=== PATIENT | female | born 1970 | race Caucasian/White ===

== ENCOUNTER 2017-11-27 20:47 | Emergency (ER) | payer BC ==
[2017-11-27] MEDS ORDERED: Ondansetron 4 MG/2 ML SDV IVPUSH ONE ×2 (21:19→23:49)
[2017-11-27] MEDS ORDERED: HYDROmorphone 0.5 MG/0.5 ML SYRINGE IVPUSH ONE ×2 (21:20→22:59)
[2017-11-27] MEDS ORDERED: Sodium Chloride 0.9% 1,000 ML IV SCH (21:30)
--- NOTE | 2017-11-27 21:32 | EDM.PDOC ---
ED HPI GENERAL MEDICAL PROBLEM - General Chief Complaint: Abdominal Pain Stated Complaint: STOMACH PAIN AND NAUSEA Time Seen by Provider: 11/27/17 20:49 Source of Information: Reports: Patient, Family History Limitations: Reports: No Limitations - History of Present Illness INITIAL COMMENTS - FREE TEXT/NARRATIVE: This is a 47-year-old female. He was in [place] for lunch had Khmer food and very shortly after eating the Khmer food she developed some abdominal discomfort that seemed to start down low and then went up into her upper abdomen. When she drove back home she took a Zantac didn't help and also took some Pepto-Bismol but that didn't help either. She describes nausea with this and kind of a crampy pain in the upper abdomen and sometimes worse on the left and sometimes it goes up into her armpits. The patient states she has not vomited. Because of the continued discomfort she comes to the ER for evaluation. She has no history of pancreatic problems no history of aortic problems no history of gallbladder problems. 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 Denies: Constipation, Diarrhea, Vomiting : Reports: No Symptoms Musculoskeletal: Reports: No Symptoms Skin: Reports: No Symptoms Neurological: Reports: No Symptoms Psychiatric: Reports: No Symptoms Hematologic/Lymphatic: Reports: No Symptoms ED EXAM, GI/ABD - Physical Exam Exam: See Below Exam Limited By: No Limitations General Appearance: Alert, WD/WN, No Apparent Distress Eyes: Bilateral: Normal Appearance Ears: Normal External Exam Nose: Normal Inspection Throat/Mouth: Normal Inspection, Normal Lips, Normal Voice, No Airway Compromise Head: Normocephalic Neck: Supple Respiratory/Chest: No Respiratory Distress, Lungs Clear, Normal Breath Sounds Cardiovascular: Regular Rate, Rhythm, No Murmur GI/Abdominal Exam: Soft, Other (The patient has some mild tenderness all across the upper abdomen area possibly over the right upper quadrant little more but negative Campbell sign, no pulsatile masses are noted but she is a large individual, no bruits are noted, the lower abdomen is nontender on palpation. Along the flank she doesn't seem to have tenderness on palpation but she does state that the pain will go up the left side and right-sided times into the armpit and also a little bit up in the Center part of her chest and epigastric area) Back Exam: Full Range of Motion Extremities: Normal Inspection, Normal Range of Motion Neurological: Alert, Oriented Psychiatric: Normal Affect, Normal Mood Skin Exam: Warm, Dry Course - Vital Signs Last Recorded V/S: Last Vital Signs Temp 97.8 F 11/27/17 21:02 Pulse 78 11/27/17 21:02 Resp 18 11/27/17 21:02 BP 150/84 H 11/27/17 21:02 Pulse Ox 96 11/27/17 21:02 - Orders/Labs/Meds Orders: Active Orders 24 hr Category Date Time Status Abdomen Comp [US] Stat Exams 11/27/17 21:18 Taken Sodium Chloride 0.9% [Normal Saline] 1,000 ml Med 11/27/17 21:30 Active IV ASDIRECTED Medication Orders Sodium Chloride (Normal Saline) 1,000 mls @ 500 mls/hr IV ASDIRECTED KAMRAN Last Admin: 11/27/17 21:36 Dose: 500 mls/hr Labs: Laboratory Tests 11/27/17 11/27/17 Range/Units 21:30 21:30 WBC 8.42 (3.98-10.04) K/mm3 RBC 4.71 (3.98-5.22) M/mm3 Hgb 13.7 (11.2-15.7) gm/L Hct 41.6 (34.1-44.9) % MCV 88.3 (79.4-94.8) fl MCH 29.1 (25.6-32.2) pg MCHC 32.9 (32.2-35.5) g/dl RDW Std Deviation 43.6 (36.4-46.3) fL Plt Count 267 (182-369) K/mm3 MPV 9.9 (9.4-12.3) fl Neut % (Auto) 60.4 (34.0-71.1) % Lymph % (Auto) 28.4 (19.3-51.7) % [place] % (Auto) 9.0 (4.7-12.5) % Eos % (Auto) 1.9 (0.7-5.8) Baso % (Auto) 0.2 (0.1-1.2) % Neut # (Auto) 5.08 (1.56-6.13) K/mm3 Lymph # (Auto) 2.39 (1.18-3.74) K/mm3 [place] # (Auto) 0.76 H (0.24-0.36) K/mm3 Eos # (Auto) 0.16 (0.04-0.36) K/mm3 Baso # (Auto) 0.02 (0.01-0.08) K/mm3 Sodium 140 (136-145) mEq/L Potassium 4.0 (3.5-5.1) mEq/L Chloride 104 (98-107) mEq/L Carbon Dioxide 27 (21-32) mEq/L Anion Gap 13.0 (5-15) BUN 20 H (7-18) mg/dL Creatinine 1.0 (0.55-1.02) mg/dL Est Cr Clr Drug Dosing 71.90 mL/min Estimated GFR (MDRD) 59 (>60) mL/min BUN/Creatinine Ratio 20.0 H (14-18) Glucose 120 H (74-106) mg/dL Calcium 8.7 (8.5-10.1) mg/dL Total Bilirubin 0.3 (0.2-1.0) mg/dL AST 14 L (15-37) U/L ALT 23 (14-59) U/L Alkaline Phosphatase 43 L (46-116) U/L Total Protein 6.9 (6.4-8.2) g/dl Albumin 3.7 (3.4-5.0) g/dl Globulin 3.2 gm/dL Albumin/Globulin Ratio 1.2 (1-2) Lipase 253 (73-393) U/L Meds: Medications Generic Name Dose Route Start Last Admin Trade Name Kristyn PRN Reason Stop Dose Admin Sodium Chloride 1,000 mls @ 500 mls/hr 11/27/17 21:30 11/27/17 21:36 Normal Saline IV 500 mls/hr ASDIRECTED KAMRAN Administration Discontinued Medications Generic Name Dose Route Start Last Admin Trade Name Huberq PRN Reason Stop Dose Admin Hydromorphone HCl 0.5 mg 11/27/17 21:20 11/27/17 21:37 Dilaudid IVPUSH 11/27/17 21:21 0.5 mg ONETIME ONE Administration Hydromorphone HCl 0.5 mg 11/27/17 22:59 Dilaudid IVPUSH 11/27/17 23:00 ONETIME ONE Ondansetron HCl 4 mg 11/27/17 21:19 11/27/17 21:37 Zofran IVPUSH 11/27/17 21:20 4 mg ONETIME ONE Administration - Radiology Interpretation Free Text/Narrative:: Ultrasound of the abdomen reveals multiple large gallstones with a positive Campbell's sign, the aorta was unremarkable and no aneurysms no kidney stones noted the pancreas was unremarkable and the liver was unremarkable there were no stones in the common bile duct noted. - Re-Assessments/Exams Free Text/Narrative Re-Assessment/Exam: 11/27/17 23:00 I spoke to the patient regarding the ultrasound results and the large gallstones and I explained to her that the greasy food she probably ate at lunch was what made flareup and she needs to be careful about eating fried greasy or oily foods. She does need to follow up with her PCP regarding the gallstones and if things markedly worsen she needs to return to the ER. 11/27/17 23:43 The patient is feeling better and wants to go home. I encouraged her to follow up with her PCP this week for reevaluation and possible referral to a surgeon. Departure - Departure Time of Disposition: 23:43 Disposition: Home, Self-Care 01 Condition: Fair Clinical Impression: Cholelithiasis without cholecystitis, Right upper quadrant abdominal pain, Nausea - Discharge Information Prescriptions: Acetaminophen/oxyCODONE [Percocet 325-5 MG] 1 each PO Q6H PRN #10 tab PRN Reason: Abdominal Pain Ondansetron HCl [Zofran] 4 mg PO Q8H PRN #12 tablet PRN Reason: Nausea Referrals: PCP,None [Primary Care Provider] - Forms: ED Department Discharge Additional Instructions: Stay away from all fried greasy or oily foods because it will make your gallbladder cry, use the pain medicine and medicine for nausea as needed, if the pain really worsens and the medicines are not working return to the ER, follow up with your provider this week for reevaluation and possible referral to a surgeon for your gallbladder removal, return to the ER if it worsens - My Orders Last 24 Hours: My Active Orders 11/27/17 21:18 Abdomen Comp [US] Stat 11/27/17 21:30 Sodium Chloride 0.9% [Normal Saline] 1,000 ml IV ASDIRECTED - Assessment/Plan Last 24 Hours: My Active Orders 11/27/17 21:18 Abdomen Comp [US] Stat 11/27/17 21:30 Sodium Chloride 0.9% [Normal Saline] 1,000 ml IV ASDIRECTED
[2017-11-27] MEDS ORDERED: Ondansetron 4 MG Tab.DIS PO ONE (23:49)
--- NOTE | 2017-11-29 08:30 | US ---
Abdominal ultrasound: Multiple real-time images of the abdomen were obtained. Comparison: No previous abdominal imaging. Liver shows no focal abnormality. Aorta shows no aneurysmal dilatation. Pancreas is incompletely seen. Visualized portions of the pancreas are within normal limits. Multiple large gallstones seen within the gallbladder. No gallbladder wall thickening is seen. Common bile duct measures at the upper limits of normal at 7 mm. Kidneys show no hydronephrosis or mass. Right kidney has a length of 12.1 cm and left kidney has a length of 12.6 cm. Inferior vena cava is patent. Portal vein is also patent. Spleen appears within normal limits. Impression: 1. Multiple large gallstones within the gallbladder. No gallbladder wall thickening. Common bile duct measures at the upper limits of normal at 7 mm. 2. Other portions of the abdominal ultrasound study appear unremarkable. Diagnostic code #3 I agree with preliminary report from [facility], finalized at 11/27/17, 11:27 PM Central Time
== END 2017-11-27 23:58 | disposition home or self-care (01) ==
LOC: JD.ED 20:47
DX: K80.20 Calculus of gallbladder without cholecystitis without obstruction (principal)
CPT/HCPCS: 36415; 76700; 80053; 83690; 85025; 96361; 96374; 96375; 96376; 99284; A9270; J1170; J2405; J7040

== ENCOUNTER 2017-12-07 07:01 | Day surgery (SDC) | payer BC ==
[~2017-12-07 07:01] MED LIST: Lactated Ringers 1,000 ML IV SCH; Lidocaine 1%/Sod Bicarbonate in NS 8.4% 1 ML Syringe IDERM PRN; Sodium Chloride 0.9% 10 ML Syringe FLUSH PRN
[2017-12-07] MEDS ORDERED: Propofol 200 MG/20 ML SDV ONE (07:13)
[2017-12-07] MEDS ORDERED: Midazolam 1 MG/ML 2 ML SDV ONE (07:14)
[2017-12-07] MEDS ORDERED: fentaNYL 250 MCG/5 ML SDV ONE (07:14)
[2017-12-07] MEDS ORDERED: Bupivacaine 0.5% 30 ML SDV ONE (07:18)
[2017-12-07] MEDS ORDERED: Iopamidol 612 MG/ML 50 ML SDV ONE (07:18)
[2017-12-07] MEDS ORDERED: Sodium Chloride 0.9% 50 ML SDV ONE (07:19)
[2017-12-07] MEDS ORDERED: Lidocaine 1% 4 ML ONE (07:19)
[2017-12-07] MEDS ORDERED: Rocuronium 50 MG/5 ML Vial ONE (07:20)
[2017-12-07] MEDS ORDERED: Dexamethasone 4 MG/ML SDV ONE (07:21)
[2017-12-07] MEDS ORDERED: Ondansetron 4 MG/2 ML SDV ONE (07:21)
--- NOTE | 2017-12-07 07:33 | PCM.PREANE ---
Preanesthetic Assessment - Procedure Proposed Procedure: Lap stan with IOC - Anesthesia/Transfusion/Family Hx Anesthesia History: Prior Anesthesia Without Reaction Family History of Anesthesia Reaction: No Transfusion History: No Prior Transfusion(s) - Review of Systems General: No Symptoms Pulmonary: Other (HANNY with CPAP) Cardiovascular: No Symptoms Gastrointestinal: No Symptoms Neurological: No Symptoms Other: Reports: None - Physical Assessment NPO Status Date: 12/06/17 NPO Status Time: 21:00 Pulse: 69 O2 Sat by Pulse Oximetry: 97 Respiratory Rate: 16 Blood Pressure: 126/70 Temperature: 37.1 C Height: 1.75 m Weight: 141.521 kg ASA Class: 2 Mental Status: Alert & Oriented x3 Airway Class: Mallampati = 2 Dentition: Reports: Normal Dentition Thyro-Mental Finger Breadths: 3 Mouth Opening Finger Breadths: 3 ROM/Head Extension: Full Lungs: Clear to Auscultation, Normal Respiratory Effort Cardiovascular: Regular Rate, Regular Rhythm - Allergies Allergies/Adverse Reactions: Allergies Allergy/AdvReac Type Severity Reaction Status Date / Time No Known Allergies Allergy Verified 11/27/17 21:05 - Blood Blood Available: No Product(s) Available: None - Anesthesia Plan Pre-Op Medication Ordered: None - Acknowledgements Anesthesia Type Planned: General Anesthesia Pt an Appropriate Candidate for the Planned Anesthesia: Yes Alternatives and Risks of Anesthesia Discussed w Pt/Guardian: Yes Pt/Guardian Understands and Agrees with Anesthesia Plan: Yes PreAnesthesia Questionnaire HEENT History: Reports: Impaired 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: - HOME MEDS Home Medications: Home Meds Acetaminophen/oxyCODONE [Percocet 325-5 MG] 1 each PO Q6H PRN #10 tab 11/27/17 [ Rx] Ondansetron HCl [Zofran] 4 mg PO Q8H PRN #12 tablet 11/27/17 [Rx] Ranitidine [Zantac] 75 mg PO BID PRN 11/27/17 [History] - CURRENT (IN HOUSE) MEDS Current Meds: Current Medications Lactated Ringer's (Ringers, Lactated) 1,000 mls @ 125 mls/hr IV ASDIRECTED KAMRAN Stop: 12/07/17 23:00 Lidocaine/Sodium Bicarbonate (Buffered Lidocaine 1% In Ns 8.4%) 0.25 ml IDERM ONETIME PRN PRN Reason: Prior to IV Start Stop: 12/07/17 18:00 Sodium Chloride (Saline Flush) 10 ml FLUSH ASDIRECTED PRN PRN Reason: Keep Vein Open Stop: 12/07/17 18:00 Discontinued Medications Bupivacaine HCl (Marcaine 0.5%) Confirm Administered Dose 30 ml .ROUTE .STK-MED ONE Stop: 12/07/17 07:19 Dexamethasone (Dexamethasone) Confirm Administered Dose 4 mg .ROUTE .STK-MED ONE Stop: 12/07/17 07:22 Fentanyl (Sublimaze) Confirm Administered Dose 250 mcg .ROUTE .STK-MED ONE Stop: 12/07/17 07:15 Lidocaine HCl (Xylocaine-Mpf 1%) Confirm Administered Dose 4 mls @ as directed .ROUTE .STK-MED ONE Stop: 12/07/17 07:20 Iopamidol (Isovue-300 (61%)) Confirm Administered Dose 50 ml .ROUTE .STK-MED ONE Stop: 12/07/17 07:19 Midazolam HCl (Versed 1 Mg/Ml) Confirm Administered Dose 2 mg .ROUTE .STK-MED ONE Stop: 12/07/17 07:15 Ondansetron HCl (Zofran) Confirm Administered Dose 4 mg .ROUTE .STK-MED ONE Stop: 12/07/17 07:22 Propofol (Diprivan 20 Ml) Confirm Administered Dose 200 mg .ROUTE .STK-MED ONE Stop: 12/07/17 07:14 Rocuronium Spring (Zemuron) Confirm Administered Dose 50 mg .ROUTE .STK-MED ONE Stop: 12/07/17 07:21 Sodium Chloride (Normal Saline) Confirm Administered Dose 50 ml .ROUTE .STK-MED ONE Stop: 12/07/17 07:20
[2017-12-07] MEDS ORDERED: ceFAZolin 1 GM Vial ONE (08:19)
[2017-12-07] MEDS ORDERED: HYDROmorphone 0.5 MG/0.5 ML Syringe ONE (09:27)
--- NOTE | 2017-12-07 10:07 | CR ---
Operative cholangiogram: Multiple fluoroscopic spot views were obtained utilizing C-arm device during operative cholangiogram exam. Opacification of the CHD and CBD are seen as well as opacification of a small portion of the intrahepatic ducts. No filling defects are seen to indicate retained stone. Contrast is noted within the duodenum. Impression: 1. No abnormality is identified on operative cholangiogram study. Diagnostic code #1
[2017-12-07] MEDS ORDERED: Ketorolac 30 MG/ML SDV ONE (10:14)
--- NOTE | 2017-12-07 10:35 | PCM.OPNOTE ---
- General Post-Op/Procedure Note Date of Surgery/Procedure: 12/07/17 Operative Procedure(s): lap stan with IOC Pre Op Diagnosis: chlelithiasis hydrops of gall bladder Post-Op Diagnosis: Same Anesthesia Technique: General ET Tube, MAC Primary Surgeon: Dion Johnson EBL in mLs: 10 Complications: None Condition: Good
[2017-12-07] MEDS ORDERED: diphenhydrAMINE 50 MG/ML SDV IVPUSH PRN (10:40)
[2017-12-07] MEDS ORDERED: Ondansetron 4 MG/2 ML SDV IVPUSH PRN (10:40)
[2017-12-07] MEDS ORDERED: Meperidine PF 50 MG/ML Syringe IVPUSH PRN (10:40)
[2017-12-07] MEDS ORDERED: fentaNYL 100 MCG/2 ML SDV IVPUSH PRN (10:40)
--- NOTE | 2017-12-07 10:40 | PCM.POSTAN ---
POST ANESTHESIA ASSESSMENT - MENTAL STATUS Mental Status: Alert, Oriented - VITAL SIGNS Pulse Rate: 77 SaO2: 94 Resp Rate: 12 Blood Pressure: 129/81 Temperature: 37.6 C - RESPIRATORY Respiratory Status: Respiratory Rate WNL, Airway Patent, O2 Saturation Stable, Supplemental Oxygen - CARDIOVASCULAR CV Status: Pulse Rate WNL, Blood Pressure Stable - GASTROINTESTINAL GI Status: No Symptoms - PAIN Pain Score: 0 - POST OP HYDRATION Hydration Status: Adequate & Stable
[2017-12-07] MEDS ORDERED: Acetaminophen/HYDROcodone 325-5 MG Tab PO PRN (12:02)
--- NOTE | 2017-12-08 09:10 | OR ---
DATE OF OPERATION: 12/07/2017 SURGEON: Dion Johnson MD PREOPERATIVE DIAGNOSIS: Cholelithiasis and hydrops of the gallbladder with obstruction of the common duct. POSTOPERATIVE DIAGNOSIS: Cholelithiasis and hydrops of the gallbladder with obstruction of the common duct. OPERATION PERFORMED: Partial cholecystectomy, extraction of stones separately, removed from the abdominal cavity along with remaining portion of the gallbladder with intraoperative cholangiogram. FINDINGS: Acute hydrops of the gallbladder with normal cholangiogram. ESTIMATED BLOOD LOSS: About 10 mL. DESCRIPTION OF PROCEDURE: The patient was taken to the operating room, placed in a supine position, given a general anesthetic and intubated. SCDs were placed. Antibiotics were given. The abdomen was prepped with chlorhexidine prep and draped off in a sterile fashion. Using a long 5-mm trocar, abdominal cavity was entered using an Optiport. 5-mm 0-degree camera was then inserted. Abdominal cavity was scanned showing inflamed gallbladder in the right upper quadrant, which was tense. A 10- mm trocar was placed in the epigastric position. A 5-mm trocar was placed in the midclavicular line, in the anterior axillary line at the rib edge. The gallbladder was then aspirated and grasped with a retractor and retracted in a cephalad position. The patient was replaced in reverse Trendelenburg with leftward tilt, and the Aleksandra's pouch was identified which was obstructed with a stone. Calot's triangle was then dissected out showing the cystic duct Aleksandra pouch junction. A clip was placed on this and a cholangiocatheter was then inserted and cholangiogram was then obtained using contrast material diluted with equal parts of saline and contrast material. This was normal. Two clips were placed on the cystic duct and the cystic duct was cut. Further dissection demonstrated the cystic artery and 2 clips were placed on the cystic artery and it was cut. It was then dissected. The Aleksandra's pouch was then lifted up and dissected close to the liver, but it was quite thickened and scarred in and it was elected to leave the posterior wall of the gallbladder in. The gallbladder was then opened, irrigated, and stones were then carefully removed and a portion of them were placed in an Endobag, removed from the abdominal cavity through the epigastric port. The remaining portion of the stones were placed just at the hepatic duct joining the common duct and the gallbladder was then dissected from its attachments to the liver, leaving the back wall in place. This was placed in an Endobag and then the remaining stones were then carefully picked up and put in that Endobag and removed from the abdominal cavity. The camera was then reinserted and careful search showed no further stones. They were all quite large and the area was irrigated. No bleeding. This completed the intraabdominal portion of the procedure. The pneumoperitoneum ports were removed and the epigastric port was closed with interrupted 0 Vicryl suture and the skin in each port closed with subdermal 4-0 Dexon suture. Steri-Strips and sterile dressing placed along with injection with 0.5% Marcaine. The patient tolerated the procedure and sent to recovery room in a stable condition. ANESTHESIA: [id number] /[id number]
== END 2017-12-07 13:50 | disposition home or self-care (01) ==
LOC: JD.SDS 07:01
PROVIDERS: ATTEND Surgery
DX: K80.11 Calculus of gallbladder with chronic cholecystitis with obstruction (principal); K82.1 Hydrops of gallbladder; G47.33 Obstructive sleep apnea (adult) (pediatric); Z99.89 Dependence on other enabling machines and devices
CPT/HCPCS: 47563; 74300; A9270; J0690; J1100; J1170; J1885; J2001; J2250; J2405; J3010; J7120; Q9967; 00790; J2704

== ENCOUNTER 2021-04-11 04:33 | Inpatient (IN) | payer BC ==
[2021-04-11] MEDS ORDERED: Sodium Chloride 0.9% 1,000 ML IV ONE (05:03)
[2021-04-11] MEDS ORDERED: Dexamethasone 10 MG/ML SDV IVPUSH STA (05:10)
[2021-04-11] MEDS ORDERED: REMDESIVIR 200 MG in Sodium Chloride 0.9% 250 ML IV ONE (05:11)
--- NOTE | 2021-04-11 05:26 | EDM.PDOC ---
ED HPI GENERAL MEDICAL PROBLEM - General Chief Complaint: Respiratory Problem Stated Complaint: [facility] Time Seen by Provider: 04/11/21 04:44 Source of Information: Reports: Patient History Limitations: Reports: No Limitations - History of Present Illness INITIAL COMMENTS - FREE TEXT/NARRATIVE: Mrs. Lee is a pleasant 50-year-old woman who states that she received a J&J COVID vaccination on 03/21/2021. Her then tested positive for the SARS-CoV-2 virus on 04/02/2021, and when she developed a headache on 04/04/2021, she decided to get tested, which also returned positive. He states that she has been feeling intermittently dyspneic since Wednesday. She developed a fever on or about 04/05/2021, with a T-max of 101.4 degrees at that time. She then developed a nonproductive cough on 04/08/2021, and diaphoresis either 04/09/2021, or yesterday, , 04/10/2021. She received an infusion of Regen-Cov on Wednesday. She developed watery diarrhea yesterday. She then woke around 03:00 with severe dyspnea and diaphoresis. She was brought to the ED by EMS, who found her to be hypoxemic. They placed high flow O2. Here in the ED, the patient was initially found to be tachycardic at 132 bpm and tachypneic at 34 rpm. She is afebrile, saturating 84% on high flow oxygen, 86 to 88% on a nonrebreather mask. She is calm, but appears to be dyspneic. Her initial BP was normal at 132/68, however, has subsequently dropped as low as 75/39. Prior to Wednesday, the patient denies having a recent fever, chills, sore throat, ear pain, nasal or sinus congestion, cough, dyspnea, chest pain, palpitations, nausea, vomiting, constipation, diarrhea, abdominal pain, urinary symptoms, recent weight gain or weight loss, recent bloody bowel movements or black bowel movements, recent joint aches, headaches, or rashes. The patient's PCP is Radha Felix NP. She received a single J&J COVID vaccination on 03/21/2021. - Related Data Allergies Allergy/AdvReac Type Severity Reaction Status Date / Time No Known Allergies Allergy Verified 04/11/21 04:49 Home Meds: Home Meds Multivitamin [Multivitamins] 1 tab PO DAILY 04/11/21 [History] Past Medical History HEENT History: Reports: Impaired Vision Endocrine/Metabolic History: Reports: Obesity/BMI 30+ - Infectious Disease History Infectious Disease History: Reports: Novel Coronavirus (dx'd 04/04/2021) - Past Surgical History HEENT Surgical History: Reports: Oral Surgery (dental extractions) GI Surgical History: Reports: Cholecystectomy (12/07/2017) Female Surgical History: Reports: Tubal Ligation Social & Family History - Tobacco Use Tobacco Use Status *Q: Never Tobacco User - Caffeine Use Caffeine Use: Reports: None - Alcohol Use Alcohol Use History: Yes Alcohol Use Frequency: Socially - Recreational Drug Use Recreational Drug Use: No - Living Situation & Occupation Living situation: Reports: , with Spouse, with Family (2 kids) Occupation: Employed ([employer]) ED ROS GENERAL - Review of Systems Review Of Systems: Comprehensive ROS is negative, except as noted in HPI. ED EXAM, GENERAL - Physical Exam Exam: See Below Exam Limited By: No Limitations General Appearance: Alert, WD/WN, Mild Distress (appears dyspneic) Eye Exam: Bilateral Eye: EOMI, Normal Inspection Ears: Normal External Exam, Hearing Grossly Normal Nose: Normal Inspection Throat/Mouth: Normal Inspection, Normal Lips, Normal Voice, No Airway Compromise Head: Atraumatic, Normocephalic Neck: Normal Inspection, Full Range of Motion Respiratory/Chest: No Respiratory Distress, Lungs Clear, Normal Breath Sounds, No Accessory Muscle Use. No: Decreased Breath Sounds, Crackles, Rhonchi, Wheezing, Stridor, Prolonged Expiration Cardiovascular: Normal Peripheral Pulses, No Gallop, No JVD, No Murmur, No Rub, Tachycardia (regular) Peripheral Pulses: 2+: Radial (L), Radial (R) GI/Abdominal: Normal Bowel Sounds, Soft, Non-Tender, No Organomegaly, No Distention, No Abnormal Bruit, No Mass Back Exam: Normal Inspection, Full Range of Motion, NT Extremities: Normal Inspection, Normal Range of Motion, No Pedal Edema, Normal Capillary Refill Neurological: Alert, Oriented, Normal Cognition, No Motor/Sensory Deficits Psychiatric: Flat Affect Skin Exam: Warm, Intact, Normal Color, No Rash, Diaphoretic (mild) #1 Interpretation EKG Date: 04/11/21 Time: 04:45 Rhythm: Other (Sinus tachycardia) Rate (Beats/Min): 131 [place]: RAD-Right [place] Deviation (due to LPFB) P-Wave: Present QRS: RBBB ST-T: Normal QT: Prolonged (QTc 491 ms) Comparison: NA - No Prior EKG Course - Vital Signs Last Recorded V/S: Last Vital Signs Temp 36.0 C L 04/11/21 21:20 Pulse 132 H 04/11/21 04:43 Resp 28 H 04/11/21 21:20 BP 105/72 04/11/21 21:20 Pulse Ox 100 04/11/21 22:48 - Orders/Labs/Meds Orders: Active Orders 24 hr Category Date Time Status BIPAP Adult [RT BiPAP/CPAP] [RC] ASDIRECTED Care 04/11/21 06:02 Active Blood Glucose Check, Bedside [] ONETIME Care 04/11/21 15:55 Active BLOOD CULTURE [MREF] Stat Lab 04/11/21 05:30 Received BLOOD CULTURE [MREF] Stat Lab 04/11/21 05:38 Received Heparin Sodium/D5W [Heparin 25,000 Units in D5W 500 ML] Med 04/11/21 08:30 Active 25,000 units in 500 ml IV TITRATE Sodium Chloride 0.9% [Normal Saline] 1,000 ml Med 04/11/21 06:15 Active IV ASDIRECTED Sodium Chloride 0.9% [Normal Saline] 100 ml Med 04/11/21 07:45 Active IV ASDIRECTED Blood Culture x2 Reflex Set [OM.PC] Stat Oth 04/11/21 05:13 Ordered Medication Orders Acetaminophen (Acetaminophen 325 Mg Tab) 650 mg PO Q4H PRN PRN Reason: Pain (Mild 1-3)/fever Albuterol/Ipratropium (Albuterol/Ipratropium 3.0-0.5 Mg/3 Ml Neb Soln) 3 ml NEB Q4H PRN PRN Reason: Shortness Of Breath/wheezing Dexamethasone (Dexamethasone 4 Mg Tab) 6 mg PO DAILY KAMRAN Stop: 04/21/21 09:01 Sodium Chloride (Normal Saline) 1,000 mls @ 150 mls/hr IV ASDIRECTED KAMRAN Last Admin: 04/11/21 06:19 Dose: 150 mls/hr Documented by: RODERICK Sodium Chloride (Normal Saline) 100 mls @ 60 mls/hr IV ASDIRECTED KAMRAN Last Admin: 04/11/21 08:07 Dose: 60 mls/hr Documented by: TAMMI Heparin Sodium/Dextrose (Heparin 25,000 Units In D5w 500 Ml) 25,000 units in 500 mls @ 53.887 mls/hr IV TITRATE KAMRAN; Protocol Last Titration: 04/11/21 23:00 Dose: 0 units/kg/hr, 0 mls/hr Documented by: COMPA Cosigned by: LAMBERTO Admin: 04/11/21 20:57 Dose: 18 units/kg/hr, 53.887 mls/hr Documented by: MOISE Cosigned by: VANDANA Titration: 04/11/21 18:16 Dose: 18 units/kg/hr, 53.887 mls/hr Documented by: MOISE Cosigned by: VANDANA Admin: 04/11/21 08:59 Dose: 18 units/kg/hr, 53.887 mls/hr Documented by: ANGELIC Cosigned by: MOISE Remdesivir 100 mg/ Sodium (Chloride) 100 mls @ 100 mls/hr IV Q24H KAMRAN Stop: 04/15/21 06:59 Heparin Sodium/Dextrose (Heparin 25,000 Units In D5w 500 Ml) 25,000 units in 500 mls @ 53.887 mls/hr IV TITRATE KAMRAN; Protocol Ondansetron HCl (Ondansetron 4 Mg/2 Ml Sdv) 4 mg IVPUSH Q4H PRN PRN Reason: Nausea/Vomiting Labs: Laboratory Tests 04/11/21 04/11/21 04/11/21 Range/Units 04:48 05:30 05:30 WBC 18.14 H (3.98-10.04) K/mm3 RBC 4.68 (3.98-5.22) M/mm3 Hgb 13.4 (11.2-15.7) gm/dl Hct 41.7 (34.1-44.9) % MCV 89.1 (79.4-94.8) fl MCH 28.6 (25.6-32.2) pg MCHC 32.1 L (32.2-35.5) g/dl RDW Std Deviation 45.6 (36.4-46.3) fL Plt Count 209 (182-369) K/mm3 MPV 9.4 (9.4-12.3) fl Neut % (Auto) (34.0-71.1) % Lymph % (Auto) (19.3-51.7) % [place] % (Auto) (4.7-12.5) % Eos % (Auto) (0.7-5.8) Baso % (Auto) (0.1-1.2) % Neut # (Auto) (1.56-6.13) K/mm3 Lymph # (Auto) (1.18-3.74) K/mm3 [place] # (Auto) (0.24-0.36) K/mm3 Eos # (Auto) (0.04-0.36) K/mm3 Baso # (Auto) (0.01-0.08) K/mm3 Neutrophils % (Manual) 82 H (40-60) % Band Neutrophils % 1 (0-10) % Lymphocytes % (Manual) 13 L (20-40) % Atypical Lymphs % 0 % Monocytes % (Manual) 4 (2-10) % Eosinophils % (Manual) 0 L (0.7-5.8) % Basophils % (Manual) 0 L (0.1-1.2) Manual Slide Review Platelet Estimate Adequate RBC Morph Comment Normal PT (9.7-12.0) SECONDS INR APTT (21.7-31.4) SECONDS D-Dimer, Quantitative (0.19-0.50) mg/L Puncture Site Rt radial ABG pH 7.33 L (7.35-7.45) ABG pCO2 38.4 (35.0-45.0) mmHg ABG pO2 60.0 L (80.0-100.0) mmHg ABG HCO3 19.8 L (22.0-26.0) meq/L ABG O2 Saturation 88.6 L (96.0-97.0) % ABG Base Excess -5.2 L (-2-2.0) A-a Gradient 462 mmHg O2 Delivery Device Nonrebreather Oxygen Flow Rate 15.0 FiO2 60.00 (21.00-100.00) % Sodium 138 (136-145) mEq/L Potassium 5.1 (3.5-5.1) mEq/L Chloride 102 (98-107) mEq/L Carbon Dioxide 26 (21-32) mEq/L Anion Gap 15.1 H (5-15) BUN 13 (7-18) mg/dL Creatinine 1.0 (0.55-1.02) mg/dL Est Cr Clr Drug Dosing 67.14 mL/min Estimated GFR (MDRD) 58 (>60) mL/min BUN/Creatinine Ratio 13.0 L (14-18) Glucose 245 H (70-99) mg/dL POC Glucose (70-99) mg/dL Lactic Acid (0.4-2.0) mmol/L Calcium 8.3 L (8.5-10.1) mg/dL Magnesium 2.0 (1.8-2.4) mg/dL Total Bilirubin 0.5 (0.2-1.0) mg/dL AST 67 H (15-37) U/L ALT 68 H (14-59) U/L Alkaline Phosphatase 86 (46-116) U/L Troponin I 0.498 H* (0.00-0.056) ng/mL C-Reactive Protein 7.8 H* (<1.0) mg/dL NT-Pro-B Natriuret Pep (0-125) pg/mL Total Protein 7.5 (6.4-8.2) g/dl Albumin 3.3 L (3.4-5.0) g/dl Globulin 4.2 gm/dL Albumin/Globulin Ratio 0.8 L (1-2) 04/11/21 04/11/21 04/11/21 Range/Units 05:30 05:30 05:30 WBC (3.98-10.04) K/mm3 RBC (3.98-5.22) M/mm3 Hgb (11.2-15.7) gm/dl Hct (34.1-44.9) % MCV (79.4-94.8) fl MCH (25.6-32.2) pg MCHC (32.2-35.5) g/dl RDW Std Deviation (36.4-46.3) fL Plt Count (182-369) K/mm3 MPV (9.4-12.3) fl Neut % (Auto) (34.0-71.1) % Lymph % (Auto) (19.3-51.7) % [place] % (Auto) (4.7-12.5) % Eos % (Auto) (0.7-5.8) Baso % (Auto) (0.1-1.2) % Neut # (Auto) (1.56-6.13) K/mm3 Lymph # (Auto) (1.18-3.74) K/mm3 [place] # (Auto) (0.24-0.36) K/mm3 Eos # (Auto) (0.04-0.36) K/mm3 Baso # (Auto) (0.01-0.08) K/mm3 Neutrophils % (Manual) (40-60) % Band Neutrophils % (0-10) % Lymphocytes % (Manual) (20-40) % Atypical Lymphs % % Monocytes % (Manual) (2-10) % Eosinophils % (Manual) (0.7-5.8) % Basophils % (Manual) (0.1-1.2) Manual Slide Review Platelet Estimate RBC Morph Comment PT 10.9 (9.7-12.0) SECONDS INR 0.98 APTT 27.9 (21.7-31.4) SECONDS D-Dimer, Quantitative 24.53 H (0.19-0.50) mg/L Puncture Site ABG pH (7.35-7.45) ABG pCO2 (35.0-45.0) mmHg ABG pO2 (80.0-100.0) mmHg ABG HCO3 (22.0-26.0) meq/L ABG O2 Saturation (96.0-97.0) % ABG Base Excess (-2-2.0) A-a Gradient mmHg O2 Delivery Device Oxygen Flow Rate FiO2 (21.00-100.00) % Sodium (136-145) mEq/L Potassium (3.5-5.1) mEq/L Chloride (98-107) mEq/L Carbon Dioxide (21-32) mEq/L Anion Gap (5-15) BUN (7-18) mg/dL Creatinine (0.55-1.02) mg/dL Est Cr Clr Drug Dosing mL/min Estimated GFR (MDRD) (>60) mL/min BUN/Creatinine Ratio (14-18) Glucose (70-99) mg/dL POC Glucose (70-99) mg/dL Lactic Acid 2.2 H* (0.4-2.0) mmol/L Calcium (8.5-10.1) mg/dL Magnesium (1.8-2.4) mg/dL Total Bilirubin (0.2-1.0) mg/dL AST (15-37) U/L ALT (14-59) U/L Alkaline Phosphatase (46-116) U/L Troponin I (0.00-0.056) ng/mL C-Reactive Protein (<1.0) mg/dL NT-Pro-B Natriuret Pep 41 (0-125) pg/mL Total Protein (6.4-8.2) g/dl Albumin (3.4-5.0) g/dl Globulin gm/dL Albumin/Globulin Ratio (1-2) 04/11/21 04/11/21 04/11/21 Range/Units 09:21 09:21 15:55 WBC 9.72 (3.98-10.04) K/mm3 RBC 4.68 (3.98-5.22) M/mm3 Hgb 13.4 (11.2-15.7) gm/dl Hct 42.1 (34.1-44.9) % MCV 90.0 (79.4-94.8) fl MCH 28.6 (25.6-32.2) pg MCHC 31.8 L (32.2-35.5) g/dl RDW Std Deviation 47.1 H (36.4-46.3) fL Plt Count 183 229 (182-369) K/mm3 MPV 9.5 (9.4-12.3) fl Neut % (Auto) 71.9 H (34.0-71.1) % Lymph % (Auto) 14.4 L (19.3-51.7) % [place] % (Auto) 13.1 H (4.7-12.5) % Eos % (Auto) 0.1 L (0.7-5.8) Baso % (Auto) 0.2 (0.1-1.2) % Neut # (Auto) 6.99 H (1.56-6.13) K/mm3 Lymph # (Auto) 1.40 (1.18-3.74) K/mm3 [place] # (Auto) 1.27 H (0.24-0.36) K/mm3 Eos # (Auto) 0.01 L (0.04-0.36) K/mm3 Baso # (Auto) 0.02 (0.01-0.08) K/mm3 Neutrophils % (Manual) (40-60) % Band Neutrophils % (0-10) % Lymphocytes % (Manual) (20-40) % Atypical Lymphs % % Monocytes % (Manual) (2-10) % Eosinophils % (Manual) (0.7-5.8) % Basophils % (Manual) (0.1-1.2) Manual Slide Review Abnormal smear Platelet Estimate RBC Morph Comment PT (9.7-12.0) SECONDS INR APTT (21.7-31.4) SECONDS D-Dimer, Quantitative (0.19-0.50) mg/L Puncture Site ABG pH (7.35-7.45) ABG pCO2 (35.0-45.0) mmHg ABG pO2 (80.0-100.0) mmHg ABG HCO3 (22.0-26.0) meq/L ABG O2 Saturation (96.0-97.0) % ABG Base Excess (-2-2.0) A-a Gradient mmHg O2 Delivery Device Oxygen Flow Rate FiO2 (21.00-100.00) % Sodium (136-145) mEq/L Potassium (3.5-5.1) mEq/L Chloride (98-107) mEq/L Carbon Dioxide (21-32) mEq/L Anion Gap (5-15) BUN (7-18) mg/dL Creatinine (0.55-1.02) mg/dL Est Cr Clr Drug Dosing mL/min Estimated GFR (MDRD) (>60) mL/min BUN/Creatinine Ratio (14-18) Glucose (70-99) mg/dL POC Glucose (70-99) mg/dL Lactic Acid 2.3 H* (0.4-2.0) mmol/L Calcium (8.5-10.1) mg/dL Magnesium (1.8-2.4) mg/dL Total Bilirubin (0.2-1.0) mg/dL AST (15-37) U/L ALT (14-59) U/L Alkaline Phosphatase (46-116) U/L Troponin I (0.00-0.056) ng/mL C-Reactive Protein (<1.0) mg/dL NT-Pro-B Natriuret Pep (0-125) pg/mL Total Protein (6.4-8.2) g/dl Albumin (3.4-5.0) g/dl Globulin gm/dL Albumin/Globulin Ratio (1-2) 04/11/21 04/11/21 Range/Units 15:55 15:57 WBC (3.98-10.04) K/mm3 RBC (3.98-5.22) M/mm3 Hgb (11.2-15.7) gm/dl Hct (34.1-44.9) % MCV (79.4-94.8) fl MCH (25.6-32.2) pg MCHC (32.2-35.5) g/dl RDW Std Deviation (36.4-46.3) fL Plt Count (182-369) K/mm3 MPV (9.4-12.3) fl Neut % (Auto) (34.0-71.1) % Lymph % (Auto) (19.3-51.7) % [place] % (Auto) (4.7-12.5) % Eos % (Auto) (0.7-5.8) Baso % (Auto) (0.1-1.2) % Neut # (Auto) (1.56-6.13) K/mm3 Lymph # (Auto) (1.18-3.74) K/mm3 [place] # (Auto) (0.24-0.36) K/mm3 Eos # (Auto) (0.04-0.36) K/mm3 Baso # (Auto) (0.01-0.08) K/mm3 Neutrophils % (Manual) (40-60) % Band Neutrophils % (0-10) % Lymphocytes % (Manual) (20-40) % Atypical Lymphs % % Monocytes % (Manual) (2-10) % Eosinophils % (Manual) (0.7-5.8) % Basophils % (Manual) (0.1-1.2) Manual Slide Review Platelet Estimate RBC Morph Comment PT (9.7-12.0) SECONDS INR APTT 65.4 H D (21.7-31.4) SECONDS D-Dimer, Quantitative (0.19-0.50) mg/L Puncture Site ABG pH (7.35-7.45) ABG pCO2 (35.0-45.0) mmHg ABG pO2 (80.0-100.0) mmHg ABG HCO3 (22.0-26.0) meq/L ABG O2 Saturation (96.0-97.0) % ABG Base Excess (-2-2.0) A-a Gradient mmHg O2 Delivery Device Oxygen Flow Rate FiO2 (21.00-100.00) % Sodium (136-145) mEq/L Potassium (3.5-5.1) mEq/L Chloride (98-107) mEq/L Carbon Dioxide (21-32) mEq/L Anion Gap (5-15) BUN (7-18) mg/dL Creatinine (0.55-1.02) mg/dL Est Cr Clr Drug Dosing mL/min Estimated GFR (MDRD) (>60) mL/min BUN/Creatinine Ratio (14-18) Glucose (70-99) mg/dL POC Glucose 166 H (70-99) mg/dL Lactic Acid (0.4-2.0) mmol/L Calcium (8.5-10.1) mg/dL Magnesium (1.8-2.4) mg/dL Total Bilirubin (0.2-1.0) mg/dL AST (15-37) U/L ALT (14-59) U/L Alkaline Phosphatase (46-116) U/L Troponin I (0.00-0.056) ng/mL C-Reactive Protein (<1.0) mg/dL NT-Pro-B Natriuret Pep (0-125) pg/mL Total Protein (6.4-8.2) g/dl Albumin (3.4-5.0) g/dl Globulin gm/dL Albumin/Globulin Ratio (1-2) Meds: Medications Generic Name Dose Route Start Last Admin Trade Name Freq PRN Reason Stop Dose Admin Acetaminophen 650 mg 04/11/21 20:33 Acetaminophen 325 Mg Tab PO Q4H PRN Pain (Mild 1-3)/fever Albuterol/Ipratropium 3 ml 04/11/21 20:33 Albuterol/Ipratropium 3.0-0.5 Mg/3 Ml Neb Soln NEB Q4H PRN Shortness Of Breath/wheezing Dexamethasone 6 mg 04/12/21 09:00 Dexamethasone 4 Mg Tab PO 04/21/21 09:01 DAILY KAMRAN Sodium Chloride 1,000 mls @ 150 mls/hr 04/11/21 06:15 04/11/21 06:19 Normal Saline IV 150 mls/hr ASDIRECTED KAMRAN Administration Sodium Chloride 100 mls @ 60 mls/hr 04/11/21 07:45 04/11/21 08:07 Normal Saline IV 60 mls/hr ASDIRECTED KAMRAN Administration Heparin Sodium/Dextrose 25,000 units in 500 mls @ 53.887 mls/hr 04/11/21 08:30 04/11/21 23:00 Heparin 25,000 Units In D5w 500 Ml IV 0 units/kg/hr TITRATE KAMRAN 0 mls/hr Titration Protocol 18 UNITS/KG/HR Remdesivir 100 mg/ Sodium 100 mls @ 100 mls/hr 04/12/21 06:00 Chloride IV 04/15/21 06:59 Q24H KAMRAN Heparin Sodium/Dextrose 25,000 units in 500 mls @ 53.887 mls/hr 04/11/21 20:45 Heparin 25,000 Units In D5w 500 Ml IV TITRATE KAMRAN Protocol 18 UNITS/KG/HR Ondansetron HCl 4 mg 04/11/21 23:16 Ondansetron 4 Mg/2 Ml Sdv IVPUSH Q4H PRN Nausea/Vomiting Discontinued Medications Generic Name Dose Route Start Last Admin Trade Name Freq PRN Reason Stop Dose Admin Dexamethasone 6 mg 04/11/21 05:10 04/11/21 05:26 Dexamethasone 10 Mg/Ml Sdv IVPUSH 04/11/21 05:11 6 mg ONETIME STA Administration Sodium Chloride 1,000 mls @ 999 mls/hr 04/11/21 05:03 04/11/21 05:04 Normal Saline IV 04/11/21 06:03 999 mls/hr ONETIME ONE Administration Remdesivir 200 mg/ Sodium 250 mls @ 250 mls/hr 04/11/21 05:11 04/11/21 05:27 Chloride IV 04/11/21 05:12 250 mls/hr ONETIME ONE Administration Iopamidol 100 ml 04/11/21 07:43 04/11/21 08:06 Iopamidol 755 Mg/Ml 100 Ml Bottle IVPUSH 04/11/21 07:44 100 ml ONETIME ONE Administration Ondansetron HCl 4 mg 04/11/21 06:27 04/11/21 06:37 Ondansetron 4 Mg/2 Ml Sdv IVPUSH 04/11/21 06:28 4 mg ONETIME ONE Administration Sodium Chloride 10 ml 04/11/21 07:43 04/11/21 08:07 Sodium Chloride 0.9% 10 Ml Syringe FLUSH 04/11/21 07:44 10 ml ONETIME ONE Administration - Re-Assessments/Exams Free Text/Narrative Re-Assessment/Exam: 04/11/21 05:15 An ECG, obtained at triage, demonstrates sinus tachycardia with a RBBB and left PFB, and no ischemic changes. An ABG, obtained at triage, demonstrates a metabolic acidosis with hypoxemia, despite being on a nonrebreather. I have ordered numerous blood tests, 2 sets of blood cultures, and a portable chest x- ray. Because of the patient's hypotension, I have ordered a 1 L bolus of NS. Once her blood pressure comes up, she will be switched from the nonrebreather to BiPAP. I have also ordered 6 mg of IV dexamethasone and 20 mg of IV remdesivir. 04/11/21 06:03 Following a 1 L bolus of IV fluid, the patient's BP is now up to 125/62 with a H R down to 123 bpm. I have ordered BiPAP, to start at 10/4 with an FiO2 of 1.0. She will continue to receive NS at 150 mL/h. 04/11/21 06:13 Portable chest radiograph reviewed. There is cardiomegaly, but no pulmonary vascular congestion to suggest decompensated CHF. No pleural effusions seen on this AP view. No focal infiltrate. No pneumothorax. There is thoracolumbar scoliosis. Formal read per the Radiologist pending. 04/11/21 06:51 The patient's CBC is remarkable for leukocytosis of 18.14, but with only 1% bandemia, with the remainder of her CBC being unremarkable. Her CMP is remarkable for hyperglycemia of 245, and an AST/ALT slightly elevated 67/68, respectively, with the remainder of her CMP being unremarkable. Her magnesium level is within normal limits at 2.0. Her CRP is elevated at 7.8. Her troponin is elevated at 0.498. Her D-dimer is substantially elevated at 24.53. Her coags are within normal limits. Her lactic acid level and pro-BNP are still pending. Based on the above, I have ordered a CT angiogram of the chest to evaluate for a PE. 04/11/21 07:[address] Salazar, and care of the patient turned over to him at this time, for change of shift. Departure - Departure Time of Disposition: 21:40 Disposition: Admitted As Inpatient 65 Clinical Impression: Pulmonary embolism, COVID-19, Hypoxemia - Discharge Information *PRESCRIPTION DRUG MONITORING PROGRAM REVIEWED*: Not Applicable *COPY OF PRESCRIPTION DRUG MONITORING REPORT IN PATIENT ARTURO: Not Applicable Sepsis Event Note (ED) - Focused Exam Vital Signs: Vital Signs Pulse Ox 04/11/21 16:15 95 - My Orders Last 24 Hours: My Active Orders 04/11/21 05:13 Blood Culture x2 Reflex Set [OM.PC] Stat 04/11/21 05:30 BLOOD CULTURE [MREF] Stat 04/11/21 05:38 BLOOD CULTURE [MREF] Stat 04/11/21 06:02 BIPAP Adult [RT BiPAP/CPAP] [RC] ASDIRECTED 04/11/21 06:15 Sodium Chloride 0.9% [Normal Saline] 1,000 ml IV ASDIRECTED 04/11/21 07:45 Sodium Chloride 0.9% [Normal Saline] 100 ml IV ASDIRECTED - Assessment/Plan Last 24 Hours: My Active Orders 04/11/21 05:13 Blood Culture x2 Reflex Set [OM.PC] Stat 04/11/21 05:30 BLOOD CULTURE [MREF] Stat 04/11/21 05:38 BLOOD CULTURE [MREF] Stat 04/11/21 06:02 BIPAP Adult [RT BiPAP/CPAP] [RC] ASDIRECTED 04/11/21 06:15 Sodium Chloride 0.9% [Normal Saline] 1,000 ml IV ASDIRECTED 04/11/21 07:45 Sodium Chloride 0.9% [Normal Saline] 100 ml IV ASDIRECTED
--- NOTE | 2021-04-11 06:12 | CR ---
Chest: Frontal view of the chest was obtained. Comparison: No prior chest imaging is available. Heart size and mediastinum are normal. Patchy increased density is seen peripherally within the left lung base. Right lung is clear. Bony structures are unremarkable. Impression: 1. Slight density within the left peripheral lung base possibly due to minimal area of pneumonia. 2. Frontal chest x-ray is otherwise unremarkable. Diagnostic code #3
[2021-04-11] MEDS ORDERED: Sodium Chloride 0.9% 1,000 ML IV SCH (06:15)
[2021-04-11] MEDS ORDERED: Ondansetron 4 MG/2 ML SDV IVPUSH ONE (06:27)
[2021-04-11] MEDS ORDERED: Iopamidol 755 Mg/ML 100 ML Bottle IVPUSH ONE (07:43)
[2021-04-11] MEDS ORDERED: Sodium Chloride 0.9% 10 ML Syringe FLUSH ONE (07:43)
[2021-04-11] MEDS ORDERED: Sodium Chloride 0.9% 100 ML IV SCH (07:45)
--- NOTE | 2021-04-11 08:24 | CT ---
CT chest Technique: Multiple axial sections through the chest were obtained. Intravenous contrast was utilized. Study has been performed as a pulmonary angiogram protocol. Comparison: Prior chest x-ray of 04/11/21 (5:35 AM). Findings: Diffuse filling defects are seen within the distal main pulmonary arteries on both sides which extend into the segmental and subsegmental branches of the both lower lungs as well as within the segmental branches within both upper lungs. Findings are compatible with prominent pulmonary embolism. There is bowing of the interventricular septum compatible with mild cardiac decompensation. Thoracic aorta shows no aneurysm. No mediastinal adenopathy is seen. No axillary adenopathy is seen. Peripheral densities are noted within the left lung as well as minimal densities within the right lung. Findings are presumably due to mild to moderate COVID pneumonia. Bone window settings were reviewed which show no acute osseous abnormality. Mild scattered degenerative change is noted within the thoracic spine. Impression: 1. Prominent pulmonary emboli as described above which cause cardiac decompensation. 2. Patchy areas of increased density within both sides of the chest, worse on the left side compatible with mild to moderate COVID pneumonia. Diagnostic code #5
--- NOTE | 2021-04-11 08:40 | EDM.PDOC ---
ED HPI GENERAL MEDICAL PROBLEM - General Chief Complaint: Respiratory Problem Stated Complaint: [facility] Time Seen by Provider: 04/11/21 04:44 Source of Information: Reports: Patient History Limitations: Reports: No Limitations - History of Present Illness INITIAL COMMENTS - FREE TEXT/NARRATIVE: Mrs. Lee is a pleasant 50-year-old woman who states that she received a J&J COVID vaccination on 03/21/2021. Her then tested positive for the SARS-CoV-2 virus on 04/02/2021, and when she developed a headache on 04/04/2021, she decided to get tested, which also returned positive. He states that she has been feeling intermittently dyspneic since Wednesday. She developed a fever on or about 04/05/2021, with a T-max of 101.4 degrees at that time. She then developed a nonproductive cough on 04/08/2021, and diaphoresis either 04/09/2021, or yesterday, , 04/10/2021. She received an infusion of Regen-Cov on Wednesday. She developed watery diarrhea yesterday. She then woke around 03:00 with severe dyspnea and diaphoresis. She was brought to the ED by EMS, who found her to be hypoxemic. They placed high flow O2. Here in the ED, the patient was initially found to be tachycardic at 132 bpm and tachypneic at 34 rpm. She is afebrile, saturating 84% on high flow oxygen, 86 to 88% on a nonrebreather mask. She is calm, but appears to be dyspneic. Her initial BP was normal at 132/68, however, has subsequently dropped as low as 75/39. Prior to Wednesday, the patient denies having a recent fever, chills, sore throat, ear pain, nasal or sinus congestion, cough, dyspnea, chest pain, palpitations, nausea, vomiting, constipation, diarrhea, abdominal pain, urinary symptoms, recent weight gain or weight loss, recent bloody bowel movements or black bowel movements, recent joint aches, headaches, or rashes. The patient's PCP is Radha Felix NP. She received a single J&J COVID vaccination on 03/21/2021. - Related Data Allergies Allergy/AdvReac Type Severity Reaction Status Date / Time No Known Allergies Allergy Verified 04/11/21 04:49 Home Meds: Home Meds Multivitamin [Multivitamins] 1 tab PO DAILY 04/11/21 [History] Past Medical History - Past Health History Medical/Surgical History: Denies Medical/Surgical History HEENT History: Reports: Impaired Vision [employer] History: Reports: Endocrine/Metabolic History: Reports: Obesity/BMI 30+ - Infectious Disease History Infectious Disease History: Reports: Novel Coronavirus (dx'd 04/04/2021) - Past Surgical History GI Surgical History: Reports: Cholecystectomy (12/07/2017) Social & Family History - Family History Family Medical History: No Pertinent Family History - Tobacco Use Tobacco Use Status *Q: Never Tobacco User - Caffeine Use Caffeine Use: Reports: None - Recreational Drug Use Recreational Drug Use: No - Living Situation & Occupation Living situation: Reports: , with Spouse, with Family (2 kids) Occupation: Employed ([employer]) ED ROS GENERAL - Review of Systems Review Of Systems: See Below ED EXAM, GENERAL - Physical Exam Exam: See Below Free Text/Narrative:: Mrs. Lee is a pleasant 50-year-old woman who states that she received a J&J COVID vaccination on 03/21/2021. Her then tested positive for the SARS-CoV-2 virus on 04/02/2021, and when she developed a headache on 04/04/2021, she decided to get tested, which also returned positive. He states that she has been feeling intermittently dyspneic since Wednesday. She developed a fever on or about 04/05/2021, with a T-max of 101.4 degrees at that time. She then developed a nonproductive cough on 04/08/2021, and diaphoresis either 04/09/2021, or yesterday, , 04/10/2021. She received an infusion of Regen-Cov on Wednesday. She developed watery diarrhea yesterday. She then woke around 03:00 with severe dyspnea and diaphoresis. She was brought to the ED by EMS, who found her to be hypoxemic. They placed high flow O2. Here in the ED, the patient was initially found to be tachycardic at 132 bpm and tachypneic at 34 rpm. She is afebrile, saturating 84% on high flow oxygen, 86 to 88% on a nonrebreather mask. She is calm, but appears to be dyspneic. Her initial BP was normal at 132/68, however, has subsequently dropped as low as 75/39. Prior to Wednesday, the patient denies having a recent fever, chills, sore throat, ear pain, nasal or sinus congestion, cough, dyspnea, chest pain, palpitations, nausea, vomiting, constipation, diarrhea, abdominal pain, urinary symptoms, recent weight gain or weight loss, recent bloody bowel movements or black bowel movements, recent joint aches, headaches, or rashes. The patient's PCP is Radha Felix NP. She received a single J&J COVID vaccination on 03/21/2021. Exam Limited By: No Limitations General Appearance: Alert, WD/WN, Mild Distress (appears dyspneic) Ears: Normal External Exam, Hearing Grossly Normal Nose: Normal Inspection Throat/Mouth: Normal Inspection, Normal Lips, Normal Voice, No Airway Compromise Head: Atraumatic, Normocephalic Neck: Normal Inspection, Full Range of Motion Respiratory/Chest: No Respiratory Distress, Lungs Clear, Normal Breath Sounds, No Accessory Muscle Use. No: Decreased Breath Sounds, Crackles, Rhonchi, Wheezing, Stridor, Prolonged Expiration Cardiovascular: Normal Peripheral Pulses, No Gallop, No JVD, No Murmur, No Rub, Tachycardia (regular) Peripheral Pulses: 2+: Radial (L), Radial (R) GI/Abdominal: Normal Bowel Sounds, Soft, Non-Tender, No Organomegaly, No Distention, No Abnormal Bruit, No Mass Back Exam: Normal Inspection, Full Range of Motion, NT Extremities: Normal Inspection, Normal Range of Motion, No Pedal Edema, Normal Capillary Refill Neurological: Alert, Oriented, Normal Cognition, No Motor/Sensory Deficits Psychiatric: Flat Affect Skin Exam: Warm, Intact, Normal Color, No Rash, Diaphoretic (mild) Lymphatic: No Adenopathy Course - Vital Signs Last Recorded V/S: Last Vital Signs Temp 35.5 C L 04/11/21 04:43 Pulse 132 H 04/11/21 04:43 Resp 34 H 04/11/21 04:43 BP 107/61 04/11/21 04:43 Pulse Ox 95 04/11/21 16:15 - Orders/Labs/Meds Orders: Active Orders 24 hr Category Date Time Status BIPAP Adult [RT BiPAP/CPAP] [] ASDIRECTED Care 04/11/21 06:02 Active Blood Glucose Check, Bedside [] ONETIME Care 04/11/21 15:55 Active BLOOD CULTURE [MREF] Stat Lab 04/11/21 05:30 Received BLOOD CULTURE [MREF] Stat Lab 04/11/21 05:38 Received Heparin Sodium/D5W [Heparin 25,000 Units in D5W 500 ML] Med 04/11/21 08:30 Active 25,000 units in 500 ml IV TITRATE Sodium Chloride 0.9% [Normal Saline] 1,000 ml Med 04/11/21 06:15 Active IV ASDIRECTED Sodium Chloride 0.9% [Normal Saline] 100 ml Med 04/11/21 07:45 Active IV ASDIRECTED Blood Culture x2 Reflex Set [OM.PC] Stat Oth 04/11/21 05:13 Ordered Medication Orders Sodium Chloride (Normal Saline) 1,000 mls @ 150 mls/hr IV ASDIRECTED KAMRAN Last Admin: 04/11/21 06:19 Dose: 150 mls/hr Documented by: RODERICK Sodium Chloride (Normal Saline) 100 mls @ 60 mls/hr IV ASDIRECTED KAMRAN Last Admin: 04/11/21 08:07 Dose: 60 mls/hr Documented by: TAMMI Heparin Sodium/Dextrose (Heparin 25,000 Units In D5w 500 Ml) 25,000 units in 500 mls @ 53.887 mls/hr IV TITRATE KAMRAN; Protocol Last Admin: 04/11/21 08:59 Dose: 18 units/kg/hr, 53.887 mls/hr Documented by: ANGELIC Cosigned by: MOISE Labs: Laboratory Tests 04/11/21 04/11/21 04/11/21 Range/Units 04:48 05:30 05:30 WBC 18.14 H (3.98-10.04) K/mm3 RBC 4.68 (3.98-5.22) M/mm3 Hgb 13.4 (11.2-15.7) gm/dl Hct 41.7 (34.1-44.9) % MCV 89.1 (79.4-94.8) fl MCH 28.6 (25.6-32.2) pg MCHC 32.1 L (32.2-35.5) g/dl RDW Std Deviation 45.6 (36.4-46.3) fL Plt Count 209 (182-369) K/mm3 MPV 9.4 (9.4-12.3) fl Neut % (Auto) (34.0-71.1) % Lymph % (Auto) (19.3-51.7) % [place] % (Auto) (4.7-12.5) % Eos % (Auto) (0.7-5.8) Baso % (Auto) (0.1-1.2) % Neut # (Auto) (1.56-6.13) K/mm3 Lymph # (Auto) (1.18-3.74) K/mm3 [place] # (Auto) (0.24-0.36) K/mm3 Eos # (Auto) (0.04-0.36) K/mm3 Baso # (Auto) (0.01-0.08) K/mm3 Neutrophils % (Manual) 82 H (40-60) % Band Neutrophils % 1 (0-10) % Lymphocytes % (Manual) 13 L (20-40) % Atypical Lymphs % 0 % Monocytes % (Manual) 4 (2-10) % Eosinophils % (Manual) 0 L (0.7-5.8) % Basophils % (Manual) 0 L (0.1-1.2) Manual Slide Review Platelet Estimate Adequate RBC Morph Comment Normal PT (9.7-12.0) SECONDS INR APTT (21.7-31.4) SECONDS D-Dimer, Quantitative (0.19-0.50) mg/L Puncture Site Rt radial ABG pH 7.33 L (7.35-7.45) ABG pCO2 38.4 (35.0-45.0) mmHg ABG pO2 60.0 L (80.0-100.0) mmHg ABG HCO3 19.8 L (22.0-26.0) meq/L ABG O2 Saturation 88.6 L (96.0-97.0) % ABG Base Excess -5.2 L (-2-2.0) A-a Gradient 462 mmHg O2 Delivery Device Nonrebreather Oxygen Flow Rate 15.0 FiO2 60.00 (21.00-100.00) % Sodium 138 (136-145) mEq/L Potassium 5.1 (3.5-5.1) mEq/L Chloride 102 (98-107) mEq/L Carbon Dioxide 26 (21-32) mEq/L Anion Gap 15.1 H (5-15) BUN 13 (7-18) mg/dL Creatinine 1.0 (0.55-1.02) mg/dL Est Cr Clr Drug Dosing 67.14 mL/min Estimated GFR (MDRD) 58 (>60) mL/min BUN/Creatinine Ratio 13.0 L (14-18) Glucose 245 H (70-99) mg/dL POC Glucose (70-99) mg/dL Lactic Acid (0.4-2.0) mmol/L Calcium 8.3 L (8.5-10.1) mg/dL Magnesium 2.0 (1.8-2.4) mg/dL Total Bilirubin 0.5 (0.2-1.0) mg/dL AST 67 H (15-37) U/L ALT 68 H (14-59) U/L Alkaline Phosphatase 86 (46-116) U/L Troponin I 0.498 H* (0.00-0.056) ng/mL C-Reactive Protein 7.8 H* (<1.0) mg/dL NT-Pro-B Natriuret Pep (0-125) pg/mL Total Protein 7.5 (6.4-8.2) g/dl Albumin 3.3 L (3.4-5.0) g/dl Globulin 4.2 gm/dL Albumin/Globulin Ratio 0.8 L (1-2) 04/11/21 04/11/21 04/11/21 Range/Units 05:30 05:30 05:30 WBC (3.98-10.04) K/mm3 RBC (3.98-5.22) M/mm3 Hgb (11.2-15.7) gm/dl Hct (34.1-44.9) % MCV (79.4-94.8) fl MCH (25.6-32.2) pg MCHC (32.2-35.5) g/dl RDW Std Deviation (36.4-46.3) fL Plt Count (182-369) K/mm3 MPV (9.4-12.3) fl Neut % (Auto) (34.0-71.1) % Lymph % (Auto) (19.3-51.7) % [place] % (Auto) (4.7-12.5) % Eos % (Auto) (0.7-5.8) Baso % (Auto) (0.1-1.2) % Neut # (Auto) (1.56-6.13) K/mm3 Lymph # (Auto) (1.18-3.74) K/mm3 [place] # (Auto) (0.24-0.36) K/mm3 Eos # (Auto) (0.04-0.36) K/mm3 Baso # (Auto) (0.01-0.08) K/mm3 Neutrophils % (Manual) (40-60) % Band Neutrophils % (0-10) % Lymphocytes % (Manual) (20-40) % Atypical Lymphs % % Monocytes % (Manual) (2-10) % Eosinophils % (Manual) (0.7-5.8) % Basophils % (Manual) (0.1-1.2) Manual Slide Review Platelet Estimate RBC Morph Comment PT 10.9 (9.7-12.0) SECONDS INR 0.98 APTT 27.9 (21.7-31.4) SECONDS D-Dimer, Quantitative 24.53 H (0.19-0.50) mg/L Puncture Site ABG pH (7.35-7.45) ABG pCO2 (35.0-45.0) mmHg ABG pO2 (80.0-100.0) mmHg ABG HCO3 (22.0-26.0) meq/L ABG O2 Saturation (96.0-97.0) % ABG Base Excess (-2-2.0) A-a Gradient mmHg O2 Delivery Device Oxygen Flow Rate FiO2 (21.00-100.00) % Sodium (136-145) mEq/L Potassium (3.5-5.1) mEq/L Chloride (98-107) mEq/L Carbon Dioxide (21-32) mEq/L Anion Gap (5-15) BUN (7-18) mg/dL Creatinine (0.55-1.02) mg/dL Est Cr Clr Drug Dosing mL/min Estimated GFR (MDRD) (>60) mL/min BUN/Creatinine Ratio (14-18) Glucose (70-99) mg/dL POC Glucose (70-99) mg/dL Lactic Acid 2.2 H* (0.4-2.0) mmol/L Calcium (8.5-10.1) mg/dL Magnesium (1.8-2.4) mg/dL Total Bilirubin (0.2-1.0) mg/dL AST (15-37) U/L ALT (14-59) U/L Alkaline Phosphatase (46-116) U/L Troponin I (0.00-0.056) ng/mL C-Reactive Protein (<1.0) mg/dL NT-Pro-B Natriuret Pep 41 (0-125) pg/mL Total Protein (6.4-8.2) g/dl Albumin (3.4-5.0) g/dl Globulin gm/dL Albumin/Globulin Ratio (1-2) 04/11/21 04/11/21 04/11/21 Range/Units 09:21 09:21 15:55 WBC 9.72 (3.98-10.04) K/mm3 RBC 4.68 (3.98-5.22) M/mm3 Hgb 13.4 (11.2-15.7) gm/dl Hct 42.1 (34.1-44.9) % MCV 90.0 (79.4-94.8) fl MCH 28.6 (25.6-32.2) pg MCHC 31.8 L (32.2-35.5) g/dl RDW Std Deviation 47.1 H (36.4-46.3) fL Plt Count 183 229 (182-369) K/mm3 MPV 9.5 (9.4-12.3) fl Neut % (Auto) 71.9 H (34.0-71.1) % Lymph % (Auto) 14.4 L (19.3-51.7) % [place] % (Auto) 13.1 H (4.7-12.5) % Eos % (Auto) 0.1 L (0.7-5.8) Baso % (Auto) 0.2 (0.1-1.2) % Neut # (Auto) 6.99 H (1.56-6.13) K/mm3 Lymph # (Auto) 1.40 (1.18-3.74) K/mm3 [place] # (Auto) 1.27 H (0.24-0.36) K/mm3 Eos # (Auto) 0.01 L (0.04-0.36) K/mm3 Baso # (Auto) 0.02 (0.01-0.08) K/mm3 Neutrophils % (Manual) (40-60) % Band Neutrophils % (0-10) % Lymphocytes % (Manual) (20-40) % Atypical Lymphs % % Monocytes % (Manual) (2-10) % Eosinophils % (Manual) (0.7-5.8) % Basophils % (Manual) (0.1-1.2) Manual Slide Review Abnormal smear Platelet Estimate RBC Morph Comment PT (9.7-12.0) SECONDS INR APTT (21.7-31.4) SECONDS D-Dimer, Quantitative (0.19-0.50) mg/L Puncture Site ABG pH (7.35-7.45) ABG pCO2 (35.0-45.0) mmHg ABG pO2 (80.0-100.0) mmHg ABG HCO3 (22.0-26.0) meq/L ABG O2 Saturation (96.0-97.0) % ABG Base Excess (-2-2.0) A-a Gradient mmHg O2 Delivery Device Oxygen Flow Rate FiO2 (21.00-100.00) % Sodium (136-145) mEq/L Potassium (3.5-5.1) mEq/L Chloride (98-107) mEq/L Carbon Dioxide (21-32) mEq/L Anion Gap (5-15) BUN (7-18) mg/dL Creatinine (0.55-1.02) mg/dL Est Cr Clr Drug Dosing mL/min Estimated GFR (MDRD) (>60) mL/min BUN/Creatinine Ratio (14-18) Glucose (70-99) mg/dL POC Glucose (70-99) mg/dL Lactic Acid 2.3 H* (0.4-2.0) mmol/L Calcium (8.5-10.1) mg/dL Magnesium (1.8-2.4) mg/dL Total Bilirubin (0.2-1.0) mg/dL AST (15-37) U/L ALT (14-59) U/L Alkaline Phosphatase (46-116) U/L Troponin I (0.00-0.056) ng/mL C-Reactive Protein (<1.0) mg/dL NT-Pro-B Natriuret Pep (0-125) pg/mL Total Protein (6.4-8.2) g/dl Albumin (3.4-5.0) g/dl Globulin gm/dL Albumin/Globulin Ratio (1-2) 04/11/21 Range/Units 15:57 WBC (3.98-10.04) K/mm3 RBC (3.98-5.22) M/mm3 Hgb (11.2-15.7) gm/dl Hct (34.1-44.9) % MCV (79.4-94.8) fl MCH (25.6-32.2) pg MCHC (32.2-35.5) g/dl RDW Std Deviation (36.4-46.3) fL Plt Count (182-369) K/mm3 MPV (9.4-12.3) fl Neut % (Auto) (34.0-71.1) % Lymph % (Auto) (19.3-51.7) % [place] % (Auto) (4.7-12.5) % Eos % (Auto) (0.7-5.8) Baso % (Auto) (0.1-1.2) % Neut # (Auto) (1.56-6.13) K/mm3 Lymph # (Auto) (1.18-3.74) K/mm3 [place] # (Auto) (0.24-0.36) K/mm3 Eos # (Auto) (0.04-0.36) K/mm3 Baso # (Auto) (0.01-0.08) K/mm3 Neutrophils % (Manual) (40-60) % Band Neutrophils % (0-10) % Lymphocytes % (Manual) (20-40) % Atypical Lymphs % % Monocytes % (Manual) (2-10) % Eosinophils % (Manual) (0.7-5.8) % Basophils % (Manual) (0.1-1.2) Manual Slide Review Platelet Estimate RBC Morph Comment PT (9.7-12.0) SECONDS INR APTT (21.7-31.4) SECONDS D-Dimer, Quantitative (0.19-0.50) mg/L Puncture Site ABG pH (7.35-7.45) ABG pCO2 (35.0-45.0) mmHg ABG pO2 (80.0-100.0) mmHg ABG HCO3 (22.0-26.0) meq/L ABG O2 Saturation (96.0-97.0) % ABG Base Excess (-2-2.0) A-a Gradient mmHg O2 Delivery Device Oxygen Flow Rate FiO2 (21.00-100.00) % Sodium (136-145) mEq/L Potassium (3.5-5.1) mEq/L Chloride (98-107) mEq/L Carbon Dioxide (21-32) mEq/L Anion Gap (5-15) BUN (7-18) mg/dL Creatinine (0.55-1.02) mg/dL Est Cr Clr Drug Dosing mL/min Estimated GFR (MDRD) (>60) mL/min BUN/Creatinine Ratio (14-18) Glucose (70-99) mg/dL POC Glucose 166 H (70-99) mg/dL Lactic Acid (0.4-2.0) mmol/L Calcium (8.5-10.1) mg/dL Magnesium (1.8-2.4) mg/dL Total Bilirubin (0.2-1.0) mg/dL AST (15-37) U/L ALT (14-59) U/L Alkaline Phosphatase (46-116) U/L Troponin I (0.00-0.056) ng/mL C-Reactive Protein (<1.0) mg/dL NT-Pro-B Natriuret Pep (0-125) pg/mL Total Protein (6.4-8.2) g/dl Albumin (3.4-5.0) g/dl Globulin gm/dL Albumin/Globulin Ratio (1-2) Meds: Medications Generic Name Dose Route Start Last Admin Trade Name Freq PRN Reason Stop Dose Admin Sodium Chloride 1,000 mls @ 150 mls/hr 04/11/21 06:15 04/11/21 06:19 Normal Saline IV 150 mls/hr ASDIRECTED KAMRAN Administration Sodium Chloride 100 mls @ 60 mls/hr 04/11/21 07:45 04/11/21 08:07 Normal Saline IV 60 mls/hr ASDIRECTED KAMRAN Administration Heparin Sodium/Dextrose 25,000 units in 500 mls @ 53.887 mls/hr 04/11/21 08:30 04/11/21 08:59 Heparin 25,000 Units In D5w 500 Ml IV 18 units/kg/hr TITRATE KAMRAN 53.887 mls/hr Administration Protocol 18 UNITS/KG/HR Discontinued Medications Generic Name Dose Route Start Last Admin Trade Name Freq PRN Reason Stop Dose Admin Dexamethasone 6 mg 04/11/21 05:10 04/11/21 05:26 Dexamethasone 10 Mg/Ml Sdv IVPUSH 04/11/21 05:11 6 mg ONETIME STA Administration Sodium Chloride 1,000 mls @ 999 mls/hr 04/11/21 05:03 04/11/21 05:04 Normal Saline IV 04/11/21 06:03 999 mls/hr ONETIME ONE Administration Remdesivir 200 mg/ Sodium 250 mls @ 250 mls/hr 04/11/21 05:11 04/11/21 05:27 Chloride IV 04/11/21 05:12 250 mls/hr ONETIME ONE Administration Iopamidol 100 ml 04/11/21 07:43 04/11/21 08:06 Iopamidol 755 Mg/Ml 100 Ml Bottle IVPUSH 04/11/21 07:44 100 ml ONETIME ONE Administration Ondansetron HCl 4 mg 04/11/21 06:27 04/11/21 06:37 Ondansetron 4 Mg/2 Ml Sdv IVPUSH 04/11/21 06:28 4 mg ONETIME ONE Administration Sodium Chloride 10 ml 04/11/21 07:43 04/11/21 08:07 Sodium Chloride 0.9% 10 Ml Syringe FLUSH 04/11/21 07:44 10 ml ONETIME ONE Administration - Re-Assessments/Exams Free Text/Narrative Re-Assessment/Exam: 04/11/21 08:39 I reassessed patient at bedside. Patient tachycardia with a rate of 118. Patient blood pressure 102/80. Patient feeling very comfortable on BiPAP. No new complaints at this time. CT angiogram report demonstrates bilateral pulmonary embolism with some right heart strain. Heparin fusion was ordered. Patient informed of need of admission likely to ICU and also likely requiring transfer. Departure - Departure Time of Disposition: 17:40 Disposition: DC/Tfer to SNF 03 Clinical Impression: Pulmonary embolism, COVID-19, Hypoxemia - Discharge Information *PRESCRIPTION DRUG MONITORING PROGRAM REVIEWED*: Not Applicable *COPY OF PRESCRIPTION DRUG MONITORING REPORT IN PATIENT ARTURO: Not Applicable Referrals: Radha Felix NP [Primary Care Provider] - Forms: ED Department Discharge Sepsis Event Note (ED) - Focused Exam Vital Signs: Vital Signs Pulse Ox Pulse Ox 04/11/21 16:15 95 04/11/21 06:33 90 L - My Orders Last 24 Hours: My Active Orders 04/11/21 08:30 Heparin Sodium/D5W [Heparin 25,000 Units in D5W 500 ML] 25,000 units in 500 ml IV TITRATE 04/11/21 15:55 Blood Glucose Check, Bedside [RC] ONETIME - Assessment/Plan Last 24 Hours: My Active Orders 04/11/21 08:30 Heparin Sodium/D5W [Heparin 25,000 Units in D5W 500 ML] 25,000 units in 500 ml IV TITRATE 04/11/21 15:55 Blood Glucose Check, Bedside [RC] ONETIME Assessment:: Patient is a 50-year-old female presenting to the emergency room with chief complaint of shortness of breath. Patient see visit signout and reevaluated several times during emergency department stay. Her work-up consistent with COVID-19 as well as bilateral pulmonary embolism with evidence of right heart strain. Patient remained tachycardic but normotensive while in the emergency room. No indication for thrombolytics. During my shift, numerous facilities were contacted for transfer including hospitals in [place], [place], [place]. None of these hospitals had beds available to accept the patient for transfer. Patient remained on heparin drip while in the emergency room. During emergency department stay, patient did suffer a syncopal episode while on the commode. Patient's status returned to baseline quickly. Repeat EKG demonstrates sinus tachycardia. Repeat demonstrated 176. Repeat CBC demonstrates no evidence of anemia. This is likely vasovagal in nature. Otherwise, patient was able to be weaned off BiPAP and placed on high flow nasal cannula at 50% and 50 L/min. She maintains her oxygen saturation in the 97% range. Ultimately, due to patient's oxygen requirements heparin drip and continued monitoring she will be admitted to the hospital and Dr. Neumann agreed to except the patient to the ICU. Patient is in agreement with this plan.
[2021-04-11] MEDS: Heparin Sodium/D5W 25,000 UNITS/500 ML BAG IV SCH ×2 (08:59→20:57)
[2021-04-11] MEDS ORDERED: Acetaminophen 325 MG Tab PO PRN (20:33)
[2021-04-11] MEDS ORDERED: Heparin Sodium/D5W 25,000 UNITS/500 ML BAG IV SCH (20:45)
--- NOTE | 2021-04-11 20:57 | PCM.HP.2 ---
H&P History of Present Illness - General Date of Service: 04/11/21 Admit Problem/Dx: Admission Diagnosis/Problem Admission Diagnosis/Problem Hypoxia - History of Present Illness Initial Comments - Free Text/Narative: 50-year-old female with 1 week history of headache, cough, fever of 101.4 max, and and shortness of breath presented to the emergency department today. She had a [employer] Covid vaccination on 03/21/2021. Her was diagnosed on 04/02/2021 with COVID-19. When she developed a headache on 04/04/2021, she got tested for the first time and was positive. Since that day she is been intermittently dyspneic and on Wednesday she had her fever. Today she was going to the bathroom and passed out in the bathroom. EMS brought her to the emergency department after finding her hypoxemic. Initially in the emergency department her heart rate was 132 bpm and respiratory rate of 34. Ox ygen saturations were 84% on high flow. She was placed on BiPAP. She had a CT angiogram after an elevated D-dimer which showed prominent pulmonary emboli within the distal main pulmonary arteries on both sides which extend into the segmental and subsegmental branches of both lower lungs as well as within the segmental branches within both upper lungs. Findings are compatible with prominent pulmonary embolism. There is bowing of the interventricular septum compatible with mild cardiac decompensation. Most of the day was spent trying to find appropriate inpatient facility. Unfortunately, there are no inpatient beds available for Covid positive patients or in the ICU in the entire state. Patient was placed on heparin drip in the emergency department. Patient did have another episode of syncope again in the emergency department. Blood pressure in the emergency department dropped down to 75/39. Patient was able to go back on high flow with oxygen saturations in the 90. Medicine service was called over 12 hours after she presented to the emergency department. This is because we did not have a bed available for her either until late in the afternoon. Patient states that she did have a DVT when she was 25 years ago. 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: Reports: Endocrine/Metabolic History: Reports: Obesity/BMI 30+ - Infectious Disease History Infectious Disease History: Reports: Novel Coronavirus (dx'd 04/04/2021) - Past Surgical History GI Surgical History: Reports: Cholecystectomy (12/07/2017) Social & Family History - Family History Family Medical History: No Pertinent Family History - Tobacco Use Tobacco Use Status *Q: Never Tobacco User - Caffeine Use Caffeine Use: Reports: None - Recreational Drug Use Recreational Drug Use: No - Living Situation & Occupation Living situation: Reports: , with Spouse, with Family (2 kids) 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 Exam - Exam Exam: See Below - Vital Signs Vital Signs: Last Vital Signs Temp 96 F L 04/11/21 04:43 Pulse 132 H 04/11/21 04:43 Resp 34 H 04/11/21 04:43 BP 107/61 04/11/21 04:43 Pulse Ox 95 04/11/21 16:15 Weight: 330 lb - Exam Quality Assessment: Supplemental Oxygen General: Alert, Oriented, 4 HEENT: Conjunctiva Clear, Hearing Intact, Mucosa Moist & [place], Normal Nasal Septum Neck: Supple Lungs: Crackles (Throughout both lung [place]). No: Normal Respiratory Effort ( Increased respiratory rate and effort) Cardiovascular: Regular Rhythm, Tachycardia GI/Abdominal Exam: Normal Bowel Sounds, Soft, Non-Tender, No Organomegaly, No Distention (Obese) Extremities: Normal Inspection, Normal Range of Motion, Non-Tender, Normal Capillary Refill, Pedal Edema. No: No Pedal Edema (1+ pitting edema b ilaterally) Skin: Warm, Dry, Intact Neurological: Cranial Nerves Intact Neuro Extensive - Mental Status: Alert, Oriented x3, Normal Mood/Affect, Normal Cognition, Memory Intact Psychiatric: Alert, Normal Affect, Normal Mood - Patient Data Lab Results Last 24 hrs: Laboratory Results - last 24 hr 04/11/21 04/11/21 04/11/21 Range/Units 04:48 05:30 05:30 WBC 18.14 H (3.98-10.04) K/mm3 RBC 4.68 (3.98-5.22) M/mm3 Hgb 13.4 (11.2-15.7) gm/dl Hct 41.7 (34.1-44.9) % MCV 89.1 (79.4-94.8) fl MCH 28.6 (25.6-32.2) pg MCHC 32.1 L (32.2-35.5) g/dl RDW Std Deviation 45.6 (36.4-46.3) fL Plt Count 209 (182-369) K/mm3 MPV 9.4 (9.4-12.3) fl Neut % (Auto) (34.0-71.1) % Lymph % (Auto) (19.3-51.7) % [place] % (Auto) (4.7-12.5) % Eos % (Auto) (0.7-5.8) Baso % (Auto) (0.1-1.2) % Neut # (Auto) (1.56-6.13) K/mm3 Lymph # (Auto) (1.18-3.74) K/mm3 [place] # (Auto) (0.24-0.36) K/mm3 Eos # (Auto) (0.04-0.36) K/mm3 Baso # (Auto) (0.01-0.08) K/mm3 Neutrophils % (Manual) 82 H (40-60) % Band Neutrophils % 1 (0-10) % Lymphocytes % (Manual) 13 L (20-40) % Atypical Lymphs % 0 % Monocytes % (Manual) 4 (2-10) % Eosinophils % (Manual) 0 L (0.7-5.8) % Basophils % (Manual) 0 L (0.1-1.2) Manual Slide Review Platelet Estimate Adequate RBC Morph Comment Normal PT (9.7-12.0) SECONDS INR APTT (21.7-31.4) SECONDS D-Dimer, Quantitative (0.19-0.50) mg/L Puncture Site Rt radial ABG pH 7.33 L (7.35-7.45) ABG pCO2 38.4 (35.0-45.0) mmHg ABG pO2 60.0 L (80.0-100.0) mmHg ABG HCO3 19.8 L (22.0-26.0) meq/L ABG O2 Saturation 88.6 L (96.0-97.0) % ABG Base Excess -5.2 L (-2-2.0) A-a Gradient 462 mmHg O2 Delivery Device Nonrebreather Oxygen Flow Rate 15.0 FiO2 60.00 (21.00-100.00) % Sodium 138 (136-145) mEq/L Potassium 5.1 (3.5-5.1) mEq/L Chloride 102 (98-107) mEq/L Carbon Dioxide 26 (21-32) mEq/L Anion Gap 15.1 H (5-15) BUN 13 (7-18) mg/dL Creatinine 1.0 (0.55-1.02) mg/dL Est Cr Clr Drug Dosing 67.14 mL/min Estimated GFR (MDRD) 58 (>60) mL/min BUN/Creatinine Ratio 13.0 L (14-18) Glucose 245 H (70-99) mg/dL POC Glucose (70-99) mg/dL Lactic Acid (0.4-2.0) mmol/L Calcium 8.3 L (8.5-10.1) mg/dL Magnesium 2.0 (1.8-2.4) mg/dL Total Bilirubin 0.5 (0.2-1.0) mg/dL AST 67 H (15-37) U/L ALT 68 H (14-59) U/L Alkaline Phosphatase 86 (46-116) U/L Troponin I 0.498 H* (0.00-0.056) ng/mL C-Reactive Protein 7.8 H* (<1.0) mg/dL NT-Pro-B Natriuret Pep (0-125) pg/mL Total Protein 7.5 (6.4-8.2) g/dl Albumin 3.3 L (3.4-5.0) g/dl Globulin 4.2 gm/dL Albumin/Globulin Ratio 0.8 L (1-2) 04/11/21 04/11/21 04/11/21 Range/Units 05:30 05:30 05:30 WBC (3.98-10.04) K/mm3 RBC (3.98-5.22) M/mm3 Hgb (11.2-15.7) gm/dl Hct (34.1-44.9) % MCV (79.4-94.8) fl MCH (25.6-32.2) pg MCHC (32.2-35.5) g/dl RDW Std Deviation (36.4-46.3) fL Plt Count (182-369) K/mm3 MPV (9.4-12.3) fl Neut % (Auto) (34.0-71.1) % Lymph % (Auto) (19.3-51.7) % [place] % (Auto) (4.7-12.5) % Eos % (Auto) (0.7-5.8) Baso % (Auto) (0.1-1.2) % Neut # (Auto) (1.56-6.13) K/mm3 Lymph # (Auto) (1.18-3.74) K/mm3 [place] # (Auto) (0.24-0.36) K/mm3 Eos # (Auto) (0.04-0.36) K/mm3 Baso # (Auto) (0.01-0.08) K/mm3 Neutrophils % (Manual) (40-60) % Band Neutrophils % (0-10) % Lymphocytes % (Manual) (20-40) % Atypical Lymphs % % Monocytes % (Manual) (2-10) % Eosinophils % (Manual) (0.7-5.8) % Basophils % (Manual) (0.1-1.2) Manual Slide Review Platelet Estimate RBC Morph Comment PT 10.9 (9.7-12.0) SECONDS INR 0.98 APTT 27.9 (21.7-31.4) SECONDS D-Dimer, Quantitative 24.53 H (0.19-0.50) mg/L Puncture Site ABG pH (7.35-7.45) ABG pCO2 (35.0-45.0) mmHg ABG pO2 (80.0-100.0) mmHg ABG HCO3 (22.0-26.0) meq/L ABG O2 Saturation (96.0-97.0) % ABG Base Excess (-2-2.0) A-a Gradient mmHg O2 Delivery Device Oxygen Flow Rate FiO2 (21.00-100.00) % Sodium (136-145) mEq/L Potassium (3.5-5.1) mEq/L Chloride (98-107) mEq/L Carbon Dioxide (21-32) mEq/L Anion Gap (5-15) BUN (7-18) mg/dL Creatinine (0.55-1.02) mg/dL Est Cr Clr Drug Dosing mL/min Estimated GFR (MDRD) (>60) mL/min BUN/Creatinine Ratio (14-18) Glucose (70-99) mg/dL POC Glucose (70-99) mg/dL Lactic Acid 2.2 H* (0.4-2.0) mmol/L Calcium (8.5-10.1) mg/dL Magnesium (1.8-2.4) mg/dL Total Bilirubin (0.2-1.0) mg/dL AST (15-37) U/L ALT (14-59) U/L Alkaline Phosphatase (46-116) U/L Troponin I (0.00-0.056) ng/mL C-Reactive Protein (<1.0) mg/dL NT-Pro-B Natriuret Pep 41 (0-125) pg/mL Total Protein (6.4-8.2) g/dl Albumin (3.4-5.0) g/dl Globulin gm/dL Albumin/Globulin Ratio (1-2) 04/11/21 04/11/21 04/11/21 Range/Units 09:21 09:21 15:55 WBC 9.72 (3.98-10.04) K/mm3 RBC 4.68 (3.98-5.22) M/mm3 Hgb 13.4 (11.2-15.7) gm/dl Hct 42.1 (34.1-44.9) % MCV 90.0 (79.4-94.8) fl MCH 28.6 (25.6-32.2) pg MCHC 31.8 L (32.2-35.5) g/dl RDW Std Deviation 47.1 H (36.4-46.3) fL Plt Count 183 229 (182-369) K/mm3 MPV 9.5 (9.4-12.3) fl Neut % (Auto) 71.9 H (34.0-71.1) % Lymph % (Auto) 14.4 L (19.3-51.7) % [place] % (Auto) 13.1 H (4.7-12.5) % Eos % (Auto) 0.1 L (0.7-5.8) Baso % (Auto) 0.2 (0.1-1.2) % Neut # (Auto) 6.99 H (1.56-6.13) K/mm3 Lymph # (Auto) 1.40 (1.18-3.74) K/mm3 [place] # (Auto) 1.27 H (0.24-0.36) K/mm3 Eos # (Auto) 0.01 L (0.04-0.36) K/mm3 Baso # (Auto) 0.02 (0.01-0.08) K/mm3 Neutrophils % (Manual) (40-60) % Band Neutrophils % (0-10) % Lymphocytes % (Manual) (20-40) % Atypical Lymphs % % Monocytes % (Manual) (2-10) % Eosinophils % (Manual) (0.7-5.8) % Basophils % (Manual) (0.1-1.2) Manual Slide Review Abnormal smear Platelet Estimate RBC Morph Comment PT (9.7-12.0) SECONDS INR APTT (21.7-31.4) SECONDS D-Dimer, Quantitative (0.19-0.50) mg/L Puncture Site ABG pH (7.35-7.45) ABG pCO2 (35.0-45.0) mmHg ABG pO2 (80.0-100.0) mmHg ABG HCO3 (22.0-26.0) meq/L ABG O2 Saturation (96.0-97.0) % ABG Base Excess (-2-2.0) A-a Gradient mmHg O2 Delivery Device Oxygen Flow Rate FiO2 (21.00-100.00) % Sodium (136-145) mEq/L Potassium (3.5-5.1) mEq/L Chloride (98-107) mEq/L Carbon Dioxide (21-32) mEq/L Anion Gap (5-15) BUN (7-18) mg/dL Creatinine (0.55-1.02) mg/dL Est Cr Clr Drug Dosing mL/min Estimated GFR (MDRD) (>60) mL/min BUN/Creatinine Ratio (14-18) Glucose (70-99) mg/dL POC Glucose (70-99) mg/dL Lactic Acid 2.3 H* (0.4-2.0) mmol/L Calcium (8.5-10.1) mg/dL Magnesium (1.8-2.4) mg/dL Total Bilirubin (0.2-1.0) mg/dL AST (15-37) U/L ALT (14-59) U/L Alkaline Phosphatase (46-116) U/L Troponin I (0.00-0.056) ng/mL C-Reactive Protein (<1.0) mg/dL NT-Pro-B Natriuret Pep (0-125) pg/mL Total Protein (6.4-8.2) g/dl Albumin (3.4-5.0) g/dl Globulin gm/dL Albumin/Globulin Ratio (1-2) 04/11/21 Range/Units 15:57 WBC (3.98-10.04) K/mm3 RBC (3.98-5.22) M/mm3 Hgb (11.2-15.7) gm/dl Hct (34.1-44.9) % MCV (79.4-94.8) fl MCH (25.6-32.2) pg MCHC (32.2-35.5) g/dl RDW Std Deviation (36.4-46.3) fL Plt Count (182-369) K/mm3 MPV (9.4-12.3) fl Neut % (Auto) (34.0-71.1) % Lymph % (Auto) (19.3-51.7) % [place] % (Auto) (4.7-12.5) % Eos % (Auto) (0.7-5.8) Baso % (Auto) (0.1-1.2) % Neut # (Auto) (1.56-6.13) K/mm3 Lymph # (Auto) (1.18-3.74) K/mm3 [place] # (Auto) (0.24-0.36) K/mm3 Eos # (Auto) (0.04-0.36) K/mm3 Baso # (Auto) (0.01-0.08) K/mm3 Neutrophils % (Manual) (40-60) % Band Neutrophils % (0-10) % Lymphocytes % (Manual) (20-40) % Atypical Lymphs % % Monocytes % (Manual) (2-10) % Eosinophils % (Manual) (0.7-5.8) % Basophils % (Manual) (0.1-1.2) Manual Slide Review Platelet Estimate RBC Morph Comment PT (9.7-12.0) SECONDS INR APTT (21.7-31.4) SECONDS D-Dimer, Quantitative (0.19-0.50) mg/L Puncture Site ABG pH (7.35-7.45) ABG pCO2 (35.0-45.0) mmHg ABG pO2 (80.0-100.0) mmHg ABG HCO3 (22.0-26.0) meq/L ABG O2 Saturation (96.0-97.0) % ABG Base Excess (-2-2.0) A-a Gradient mmHg O2 Delivery Device Oxygen Flow Rate FiO2 (21.00-100.00) % Sodium (136-145) mEq/L Potassium (3.5-5.1) mEq/L Chloride (98-107) mEq/L Carbon Dioxide (21-32) mEq/L Anion Gap (5-15) BUN (7-18) mg/dL Creatinine (0.55-1.02) mg/dL Est Cr Clr Drug Dosing mL/min Estimated GFR (MDRD) (>60) mL/min BUN/Creatinine Ratio (14-18) Glucose (70-99) mg/dL POC Glucose 166 H (70-99) mg/dL Lactic Acid (0.4-2.0) mmol/L Calcium (8.5-10.1) mg/dL Magnesium (1.8-2.4) mg/dL Total Bilirubin (0.2-1.0) mg/dL AST (15-37) U/L ALT (14-59) U/L Alkaline Phosphatase (46-116) U/L Troponin I (0.00-0.056) ng/mL C-Reactive Protein (<1.0) mg/dL NT-Pro-B Natriuret Pep (0-125) pg/mL Total Protein (6.4-8.2) g/dl Albumin (3.4-5.0) g/dl Globulin gm/dL Albumin/Globulin Ratio (1-2) Result Diagrams: 04/11/21 15:55 04/11/21 05:30 Sepsis Event Note - Focused Exam Vital Signs: Vital Signs Pulse Ox 04/11/21 16:15 95 - Problem List (1) Pneumonia due to COVID-19 virus SNOMED Code(s): 501386415475701951 ICD Code: U07.1 - COVID-19; J12.82 - PNEUMONIA DUE TO CORONAVIRUS DISEASE 2018 Status: Acute Current Visit: Yes (2) Respiratory failure with hypoxia SNOMED Code(s): 66540694494998114 ICD Code: J96.91 - RESPIRATORY FAILURE, UNSPECIFIED WITH HYPOXIA Status: Acute Current Visit: Yes (3) Pulmonary embolism SNOMED Code(s): 70602048 ICD Code: I26.99 - OTHER PULMONARY EMBOLISM WITHOUT ACUTE COR PULMONALE Status: Acute Current Visit: Yes Problem List Initiated/Reviewed/Updated: Yes Orders Last 24hrs: Active Orders 24 hr Category Date Time Status Patient Status [ADT] Routine ADT 04/11/21 19:12 Active BIPAP Adult [RT BiPAP/CPAP] [RC] ASDIRECTED Care 04/11/21 06:02 Active Blood Glucose Check, Bedside [RC] ONETIME Care 04/11/21 15:55 Active Nurse Communication: Isolation [RC] ASDIRECTED Care 04/11/21 20:33 Active Oxygen Therapy [RC] PRN Care 04/11/21 20:33 Active Positioning, Patient [RC] ASDIRECTED Care 04/11/21 20:35 Active RT Aerosol Therapy [RC] ASDIRECTED Care 04/11/21 20:37 Active RT Incentive Spirometry [RC] ASDIRECTED Care 04/11/21 20:33 Active Up With Assistance [RC] ASDIRECTED Care 04/11/21 20:33 Active VTE/DVT Education [RC] PER UNIT ROUTINE Care 04/11/21 20:33 Active Vital Signs [RC] Q4H Care 04/11/21 20:33 Active Regular Diet [DIET] Diet 04/11/21 Dinner Active BLOOD CULTURE [MREF] Stat Lab 04/11/21 05:30 Received BLOOD CULTURE [MREF] Stat Lab 04/11/21 05:38 Received C-REACTIVE PROTEIN [CHEM] AM Lab 04/12/21 05:11 Ordered C-REACTIVE PROTEIN [CHEM] AM Lab 04/13/21 05:11 Ordered C-REACTIVE PROTEIN [CHEM] AM Lab 04/14/21 05:11 Ordered C-REACTIVE PROTEIN [CHEM] AM Lab 04/15/21 05:11 Ordered C-REACTIVE PROTEIN [CHEM] AM Lab 04/16/21 05:11 Ordered CBC WITH AUTO DIFF [HEME] AM Lab 04/12/21 05:11 Ordered CBC WITH AUTO DIFF [HEME] AM Lab 04/13/21 05:11 Ordered CBC WITH AUTO DIFF [HEME] AM Lab 04/14/21 05:11 Ordered CBC WITH AUTO DIFF [HEME] AM Lab 04/15/21 05:11 Ordered CBC WITH AUTO DIFF [HEME] AM Lab 04/16/21 05:11 Ordered CMP [COMPREHENSIVE METABOLIC PN,CMP] [CHEM] AM Lab 04/12/21 05:11 Ordered CMP [COMPREHENSIVE METABOLIC PN,CMP] [CHEM] AM Lab 04/13/21 05:11 Ordered CMP [COMPREHENSIVE METABOLIC PN,CMP] [CHEM] AM Lab 04/14/21 05:11 Ordered CMP [COMPREHENSIVE METABOLIC PN,CMP] [CHEM] AM Lab 04/15/21 05:11 Ordered CMP [COMPREHENSIVE METABOLIC PN,CMP] [CHEM] AM Lab 04/16/21 05:11 Ordered MAGNESIUM [CHEM] AM Lab 04/12/21 05:11 Ordered MAGNESIUM [CHEM] AM Lab 04/13/21 05:11 Ordered MAGNESIUM [CHEM] AM Lab 04/14/21 05:11 Ordered MAGNESIUM [CHEM] AM Lab 04/15/21 05:11 Ordered MAGNESIUM [CHEM] AM Lab 04/16/21 05:11 Ordered PROCALCITONIN [REF] Routine Lab 04/11/21 20:33 Ordered PTT,PARTIAL THROMBOPLSTIN TIME [COAG] Q6H Lab 04/12/21 02:45 Ordered PTT,PARTIAL THROMBOPLSTIN TIME [COAG] Q6H Lab 04/12/21 08:45 Ordered PTT,PARTIAL THROMBOPLSTIN TIME [COAG] Q6H Lab 04/12/21 14:45 Ordered PTT,PARTIAL THROMBOPLSTIN TIME [COAG] Q6H Lab 04/12/21 20:45 Ordered PTT,PARTIAL THROMBOPLSTIN TIME [COAG] Q6H Lab 04/13/21 02:45 Ordered PTT,PARTIAL THROMBOPLSTIN TIME [COAG] Q6H Lab 04/13/21 08:45 Ordered PTT,PARTIAL THROMBOPLSTIN TIME [COAG] Urgent Lab 04/11/21 15:55 Received Acetaminophen [TylenoL] Med 04/11/21 20:33 Active 650 mg PO Q4H PRN Albuterol/Ipratropium [DuoNeb 3.0-0.5 MG/3 ML] Med 04/11/21 20:33 Active 3 ml NEB Q4H PRN Heparin Sodium/D5W [Heparin 25,000 Units in D5W 500 ML] Med 04/11/21 08:30 Active 25,000 units in 500 ml IV TITRATE Heparin Sodium/D5W [Heparin 25,000 Units in D5W 500 ML] Med 04/11/21 20:45 Active 25,000 units in 500 ml IV TITRATE Remdesivir 100 mg Med 04/12/21 06:00 Active Sodium Chloride 0.9% [Normal Saline] 100 ml IV Q24H Sodium Chloride 0.9% [Normal Saline] 1,000 ml Med 04/11/21 06:15 Active IV ASDIRECTED Sodium Chloride 0.9% [Normal Saline] 100 ml Med 04/11/21 07:45 Active IV ASDIRECTED dexAMETHasone Med 04/12/21 09:00 Active 6 mg PO DAILY Blood Culture x2 Reflex Set [OM.PC] Stat Oth 04/11/21 05:13 Ordered Isolation [COMM] Stat Oth 04/11/21 20:33 Ordered RT Acapella [RESPCARE] Routine Oth 04/11/21 20:33 Active Resuscitation Status Routine Resus Stat 04/11/21 20:33 Ordered Medication Orders Acetaminophen (Acetaminophen 325 Mg Tab) 650 mg PO Q4H PRN PRN Reason: Pain (Mild 1-3)/fever Albuterol/Ipratropium (Albuterol/Ipratropium 3.0-0.5 Mg/3 Ml Neb Soln) 3 ml NEB Q4H PRN PRN Reason: Shortness Of Breath/wheezing Dexamethasone (Dexamethasone 4 Mg Tab) 6 mg PO DAILY KAMRAN Stop: 04/21/21 09:01 Sodium Chloride (Normal Saline) 1,000 mls @ 150 mls/hr IV ASDIRECTED KAMRAN Last Admin: 04/11/21 06:19 Dose: 150 mls/hr Documented by: RODERICK Sodium Chloride (Normal Saline) 100 mls @ 60 mls/hr IV ASDIRECTED KAMRAN Last Admin: 04/11/21 08:07 Dose: 60 mls/hr Documented by: TAMMI Heparin Sodium/Dextrose (Heparin 25,000 Units In D5w 500 Ml) 25,000 units in 500 mls @ 53.887 mls/hr IV TITRATE KAMRAN; Protocol Last Admin: 04/11/21 08:59 Dose: 18 units/kg/hr, 53.887 mls/hr Documented by: ANGELIC Cosigned by: MOISE Remdesivir 100 mg/ Sodium (Chloride) 100 mls @ 100 mls/hr IV Q24H KAMRAN Stop: 04/15/21 06:59 Heparin Sodium/Dextrose (Heparin 25,000 Units In D5w 500 Ml) 25,000 units in 500 mls @ 53.887 mls/hr IV TITRATE KAMRAN; Protocol Assessment/Plan Comment:: 50-year-old female with history of DVT after delivery 25 years ago is admitted to the ICU with COVID-19 pneumonia, extensive pulmonary embolism, cardiac decompensation COVID-19 pneumonia with respiratory failure * Received dexamethasone and remdesivir in the emergency department * White count 18, C-reactive protein 7.8, troponin 0 0.498, D-dimer 24.5, lactic acid 2.2, repeat WBC 9.72 and repeat lactic acid 2.3. * Patient was weaned off BiPAP in the emergency department and put on high flow nasal cannula at 50% and 50 L/min with oxygen saturations in the mid 90s. * Patient did receive the Nabil & Nabil vaccine on 03/21/2021 * CT of the chest is compatible with mild to moderate Covid pneumonia bilaterally, left worse than right Prominent pulmonary emboli bilaterally with cardiac decompensation * No significant shortness of breath, just periodically for the last 7 days, prior to her syncopal episode today. * D-dimer 24 * CTA demonstrating prominent pulmonary emboli with cardiac decompensation * No ICU beds available therefore she cannot be seen by interventional radiology * Started on heparin drip in the emergency department * Respiratory failure secondary to both COVID-19 pneumonia and pulmonary emboli * Had DVT while 25 years ago Plan * Admit to ICU * Strict isolation * Heparin drip for 48 hours * Continue dexamethasone and remdesivir * Consider Actemra. * Follow CBC, CMP, mag, Phos, C-reactive protein * PTT every 6 hours until stable * FiO2 to keep SPO2 between 88 and 94%. Continue on high flow nasal cannula at this time. * RT, Acapella, I-S * Albuterol and DuoNebs as needed * CODE STATUS: Full code - Mortality Measure Prognosis:: Good
[2021-04-11] MEDS ORDERED: Ondansetron 4 MG/2 ML SDV IVPUSH PRN (23:16)
[2021-04-12] MEDS ORDERED: REMDESIVIR 100 MG in Sodium Chloride 0.9% 100 ML IV SCH (06:00)
[2021-04-12] MEDS ORDERED: Lactated Ringers 500 ML IV ONE (07:34)
[2021-04-12] MEDS: Albuterol/Ipratropium 3.0-0.5 MG/3 ML Neb Soln NEB PRN ×2 (07:55→14:27)
[2021-04-12] MEDS: Dexamethasone 4 MG Tab PO SCH (08:32)
[2021-04-12] MEDS ORDERED: Lactated Ringers 1,000 ML ONE (08:43)
--- NOTE | 2021-04-12 09:34 | PCM.PN ---
- General Info Date of Service: 04/12/21 Admission Dx/Problem (Free Text): Admission Diagnosis/Problem Admission Diagnosis/Problem Hypoxia Subjective Update: 50-year-old female admitted with COVID-19 pneumonia and bilateral pulmonary emboli with cardiac decompensation. She states that she is starting to feel a little better than yesterday. Her heparin drip had to be held because of a significantly elevated APTT. Also this causes nausea increase in her AST and ALT. She has no increased bleeding but she did start her menses yesterday. No drop in her hemoglobin. Functional Status: Reports: Pain Controlled - Review of Systems General: Reports: Fatigue HEENT: Reports: No Symptoms Pulmonary: Reports: Shortness of Breath, Cough Cardiovascular: Reports: No Symptoms Gastrointestinal: Reports: No Symptoms Musculoskeletal: Reports: No Symptoms - Patient Data Vitals - Most Recent: Last Vital Signs Temp 97.5 F 04/12/21 04:00 Pulse 96 04/12/21 05:00 Resp 24 H 04/12/21 05:00 BP 109/83 04/12/21 04:00 Pulse Ox 96 04/12/21 07:55 Weight - Most Recent: 324 lb I&O - Last 24 Hours: Intake & Output 04/11/21 04/12/21 04/12/21 22:59 06:59 14:59 Intake Total 120 1258 Output Total 200 Balance 120 1058 Lab Results Last 24 Hours: Laboratory Results - last 24 hr 04/11/21 04/11/21 04/11/21 Range/Units 09:21 09:21 15:55 WBC 9.72 (3.98-10.04) K/mm3 RBC 4.68 (3.98-5.22) M/mm3 Hgb 13.4 (11.2-15.7) gm/dl Hct 42.1 (34.1-44.9) % MCV 90.0 (79.4-94.8) fl MCH 28.6 (25.6-32.2) pg MCHC 31.8 L (32.2-35.5) g/dl RDW Std Deviation 47.1 H (36.4-46.3) fL Plt Count 183 229 (182-369) K/mm3 MPV 9.5 (9.4-12.3) fl Neut % (Auto) 71.9 H (34.0-71.1) % Lymph % (Auto) 14.4 L (19.3-51.7) % [place] % (Auto) 13.1 H (4.7-12.5) % Eos % (Auto) 0.1 L (0.7-5.8) Baso % (Auto) 0.2 (0.1-1.2) % Neut # (Auto) 6.99 H (1.56-6.13) K/mm3 Lymph # (Auto) 1.40 (1.18-3.74) K/mm3 [place] # (Auto) 1.27 H (0.24-0.36) K/mm3 Eos # (Auto) 0.01 L (0.04-0.36) K/mm3 Baso # (Auto) 0.02 (0.01-0.08) K/mm3 Manual Slide Review Abnormal smear APTT (21.7-31.4) SECONDS Sodium (136-145) mEq/L Potassium (3.5-5.1) mEq/L Chloride (98-107) mEq/L Carbon Dioxide (21-32) mEq/L Anion Gap (5-15) BUN (7-18) mg/dL Creatinine (0.55-1.02) mg/dL Est Cr Clr Drug Dosing mL/min Estimated GFR (MDRD) (>60) mL/min BUN/Creatinine Ratio (14-18) Glucose (70-99) mg/dL POC Glucose (70-99) mg/dL Lactic Acid 2.3 H* (0.4-2.0) mmol/L Calcium (8.5-10.1) mg/dL Magnesium (1.8-2.4) mg/dL Total Bilirubin (0.2-1.0) mg/dL AST (15-37) U/L ALT (14-59) U/L Alkaline Phosphatase (46-116) U/L C-Reactive Protein (<1.0) mg/dL Total Protein (6.4-8.2) g/dl Albumin (3.4-5.0) g/dl Globulin gm/dL Albumin/Globulin Ratio (1-2) 04/11/21 04/11/21 04/11/21 Range/Units 15:55 15:57 22:05 WBC (3.98-10.04) K/mm3 RBC (3.98-5.22) M/mm3 Hgb (11.2-15.7) gm/dl Hct (34.1-44.9) % MCV (79.4-94.8) fl MCH (25.6-32.2) pg MCHC (32.2-35.5) g/dl RDW Std Deviation (36.4-46.3) fL Plt Count (182-369) K/mm3 MPV (9.4-12.3) fl Neut % (Auto) (34.0-71.1) % Lymph % (Auto) (19.3-51.7) % [place] % (Auto) (4.7-12.5) % Eos % (Auto) (0.7-5.8) Baso % (Auto) (0.1-1.2) % Neut # (Auto) (1.56-6.13) K/mm3 Lymph # (Auto) (1.18-3.74) K/mm3 [place] # (Auto) (0.24-0.36) K/mm3 Eos # (Auto) (0.04-0.36) K/mm3 Baso # (Auto) (0.01-0.08) K/mm3 Manual Slide Review APTT 65.4 H D 108.8 H* D (21.7-31.4) SECONDS Sodium (136-145) mEq/L Potassium (3.5-5.1) mEq/L Chloride (98-107) mEq/L Carbon Dioxide (21-32) mEq/L Anion Gap (5-15) BUN (7-18) mg/dL Creatinine (0.55-1.02) mg/dL Est Cr Clr Drug Dosing mL/min Estimated GFR (MDRD) (>60) mL/min BUN/Creatinine Ratio (14-18) Glucose (70-99) mg/dL POC Glucose 166 H (70-99) mg/dL Lactic Acid (0.4-2.0) mmol/L Calcium (8.5-10.1) mg/dL Magnesium (1.8-2.4) mg/dL Total Bilirubin (0.2-1.0) mg/dL AST (15-37) U/L ALT (14-59) U/L Alkaline Phosphatase (46-116) U/L C-Reactive Protein (<1.0) mg/dL Total Protein (6.4-8.2) g/dl Albumin (3.4-5.0) g/dl Globulin gm/dL Albumin/Globulin Ratio (1-2) 04/12/21 04/12/21 04/12/21 Range/Units 06:03 06:03 06:03 WBC 13.27 H (3.98-10.04) K/mm3 RBC 4.20 (3.98-5.22) M/mm3 Hgb 12.0 (11.2-15.7) gm/dl Hct 37.5 (34.1-44.9) % MCV 89.3 (79.4-94.8) fl MCH 28.6 (25.6-32.2) pg MCHC 32.0 L (32.2-35.5) g/dl RDW Std Deviation 46.2 (36.4-46.3) fL Plt Count 194 (182-369) K/mm3 MPV 9.7 (9.4-12.3) fl Neut % (Auto) 74.4 H (34.0-71.1) % Lymph % (Auto) 14.5 L (19.3-51.7) % [place] % (Auto) 10.4 (4.7-12.5) % Eos % (Auto) 0.1 L (0.7-5.8) Baso % (Auto) 0.2 (0.1-1.2) % Neut # (Auto) 9.87 H (1.56-6.13) K/mm3 Lymph # (Auto) 1.93 (1.18-3.74) K/mm3 [place] # (Auto) 1.38 H (0.24-0.36) K/mm3 Eos # (Auto) 0.01 L (0.04-0.36) K/mm3 Baso # (Auto) 0.03 (0.01-0.08) K/mm3 Manual Slide Review Normal smear APTT > 139.0 H* D (21.7-31.4) SECONDS Sodium 137 (136-145) mEq/L Potassium 4.7 (3.5-5.1) mEq/L Chloride 102 (98-107) mEq/L Carbon Dioxide 24 (21-32) mEq/L Anion Gap 15.7 H (5-15) BUN 28 H (7-18) mg/dL Creatinine 1.4 H (0.55-1.02) mg/dL Est Cr Clr Drug Dosing 47.96 mL/min Estimated GFR (MDRD) 40 (>60) mL/min BUN/Creatinine Ratio 20.0 H (14-18) Glucose 155 H (70-99) mg/dL POC Glucose (70-99) mg/dL Lactic Acid (0.4-2.0) mmol/L Calcium 7.6 L (8.5-10.1) mg/dL Magnesium 2.1 (1.8-2.4) mg/dL Total Bilirubin 0.3 (0.2-1.0) mg/dL AST 479 H (15-37) U/L ALT 555 H (14-59) U/L Alkaline Phosphatase 93 (46-116) U/L C-Reactive Protein 6.1 H* (<1.0) mg/dL Total Protein 6.9 (6.4-8.2) g/dl Albumin 3.1 L (3.4-5.0) g/dl Globulin 3.8 gm/dL Albumin/Globulin Ratio 0.8 L (1-2) Med Orders - Current: Current Medications Acetaminophen (Acetaminophen 325 Mg Tab) 650 mg PO Q4H PRN PRN Reason: Pain (Mild 1-3)/fever Albuterol/Ipratropium (Albuterol/Ipratropium 3.0-0.5 Mg/3 Ml Neb Soln) 3 ml NEB Q4H PRN PRN Reason: Shortness Of Breath/wheezing Last Admin: 04/12/21 07:55 Dose: 3 ml Documented by: Dexamethasone (Dexamethasone 4 Mg Tab) 6 mg PO DAILY [facility] Stop: 04/21/21 09:01 Last Admin: 04/12/21 08:32 Dose: 6 mg Documented by: Sodium Chloride (Normal Saline) 1,000 mls @ 150 mls/hr IV ASDIRECTED KAMRAN Last Admin: 04/11/21 06:19 Dose: 150 mls/hr Documented by: Sodium Chloride (Normal Saline) 100 mls @ 60 mls/hr IV ASDIRECTED KAMRAN Last Admin: 04/11/21 08:07 Dose: 60 mls/hr Documented by: Heparin Sodium/Dextrose (Heparin 25,000 Units In D5w 500 Ml) 25,000 units in 500 mls @ 53.887 mls/hr IV TITRATE KAMRAN; Protocol Last Titration: 04/12/21 08:30 Dose: 12 units/kg/hr, 35.924 mls/hr Documented by: Heparin Sodium/Dextrose (Heparin 25,000 Units In D5w 500 Ml) 25,000 units in 500 mls @ 53.887 mls/hr IV TITRATE KAMRAN; Protocol Ondansetron HCl (Ondansetron 4 Mg/2 Ml Sdv) 4 mg IVPUSH Q4H PRN PRN Reason: Nausea/Vomiting Last Admin: 04/11/21 23:27 Dose: 4 mg Documented by: Discontinued Medications Dexamethasone (Dexamethasone 10 Mg/Ml Sdv) 6 mg IVPUSH ONETIME STA Stop: 04/11/21 05:11 Last Admin: 04/11/21 05:26 Dose: 6 mg Documented by: Sodium Chloride (Normal Saline) 1,000 mls @ 999 mls/hr IV ONETIME ONE Stop: 04/11/21 06:03 Last Admin: 04/11/21 05:04 Dose: 999 mls/hr Documented by: Remdesivir 200 mg/ Sodium (Chloride) 250 mls @ 250 mls/hr IV ONETIME ONE Stop: 04/11/21 05:12 Last Admin: 04/11/21 05:27 Dose: 250 mls/hr Documented by: Remdesivir 100 mg/ Sodium (Chloride) 100 mls @ 100 mls/hr IV Q24H KAMRAN Stop: 04/15/21 06:59 Last Admin: 04/12/21 07:47 Dose: 100 mls/hr Documented by: Lactated Ringer's (Ringers, Lactated) 500 mls @ 500 mls/hr IV .BOLUS ONE Stop: 04/12/21 08:33 Last Admin: 04/12/21 07:46 Dose: 500 mls/hr Documented by: Lactated Ringer's (Ringers, Lactated) Confirm Administered Dose 1,000 mls @ as directed .ROUTE .STK-MED ONE Stop: 04/12/21 08:44 Last Admin: 04/12/21 08:51 Dose: Not Given Documented by: Iopamidol (Iopamidol 755 Mg/Ml 100 Ml Bottle) 100 ml IVPUSH ONETIME ONE Stop: 04/11/21 07:44 Last Admin: 04/11/21 08:06 Dose: 100 ml Documented by: Ondansetron HCl (Ondansetron 4 Mg/2 Ml Sdv) 4 mg IVPUSH ONETIME ONE Stop: 04/11/21 06:28 Last Admin: 04/11/21 06:37 Dose: 4 mg Documented by: Sodium Chloride (Sodium Chloride 0.9% 10 Ml Syringe) 10 ml FLUSH ONETIME ONE Stop: 04/11/21 07:44 Last Admin: 04/11/21 08:07 Dose: 10 ml Documented by: - Exam Quality Assessment: Supplemental Oxygen Urinary Catheter Total Time: 1Days 2Hours General: Alert, Oriented HEENT: Pupils Equal, Mucous Membr. Moist/[place] Neck: Supple Lungs: Crackles (Throughout both lung hermos[place]). No: Normal Respiratory Effort (Increased rate and effort) Cardiovascular: Regular Rate, Regular Rhythm GI/Abdominal Exam: Normal Bowel Sounds, Soft, Non-Tender, No Distention Extremities: Normal Inspection, Normal Range of Motion, No Pedal Edema, Normal Capillary Refill Skin: Warm, Dry, Intact Psy/Mental Status: Alert, Normal Affect, Normal Mood - Patient Data Lab Results Last 24 hrs: Laboratory Results - last 24 hr 04/11/21 04/11/21 04/11/21 Range/Units 09:21 09:21 15:55 WBC 9.72 (3.98-10.04) K/mm3 RBC 4.68 (3.98-5.22) M/mm3 Hgb 13.4 (11.2-15.7) gm/dl Hct 42.1 (34.1-44.9) % MCV 90.0 (79.4-94.8) fl MCH 28.6 (25.6-32.2) pg MCHC 31.8 L (32.2-35.5) g/dl RDW Std Deviation 47.1 H (36.4-46.3) fL Plt Count 183 229 (182-369) K/mm3 MPV 9.5 (9.4-12.3) fl Neut % (Auto) 71.9 H (34.0-71.1) % Lymph % (Auto) 14.4 L (19.3-51.7) % [place] % (Auto) 13.1 H (4.7-12.5) % Eos % (Auto) 0.1 L (0.7-5.8) Baso % (Auto) 0.2 (0.1-1.2) % Neut # (Auto) 6.99 H (1.56-6.13) K/mm3 Lymph # (Auto) 1.40 (1.18-3.74) K/mm3 [place] # (Auto) 1.27 H (0.24-0.36) K/mm3 Eos # (Auto) 0.01 L (0.04-0.36) K/mm3 Baso # (Auto) 0.02 (0.01-0.08) K/mm3 Manual Slide Review Abnormal smear APTT (21.7-31.4) SECONDS Sodium (136-145) mEq/L Potassium (3.5-5.1) mEq/L Chloride (98-107) mEq/L Carbon Dioxide (21-32) mEq/L Anion Gap (5-15) BUN (7-18) mg/dL Creatinine (0.55-1.02) mg/dL Est Cr Clr Drug Dosing mL/min Estimated GFR (MDRD) (>60) mL/min BUN/Creatinine Ratio (14-18) Glucose (70-99) mg/dL POC Glucose (70-99) mg/dL Lactic Acid 2.3 H* (0.4-2.0) mmol/L Calcium (8.5-10.1) mg/dL Magnesium (1.8-2.4) mg/dL Total Bilirubin (0.2-1.0) mg/dL AST (15-37) U/L ALT (14-59) U/L Alkaline Phosphatase (46-116) U/L C-Reactive Protein (<1.0) mg/dL Total Protein (6.4-8.2) g/dl Albumin (3.4-5.0) g/dl Globulin gm/dL Albumin/Globulin Ratio (1-2) 04/11/21 04/11/21 04/11/21 Range/Units 15:55 15:57 22:05 WBC (3.98-10.04) K/mm3 RBC (3.98-5.22) M/mm3 Hgb (11.2-15.7) gm/dl Hct (34.1-44.9) % MCV (79.4-94.8) fl MCH (25.6-32.2) pg MCHC (32.2-35.5) g/dl RDW Std Deviation (36.4-46.3) fL Plt Count (182-369) K/mm3 MPV (9.4-12.3) fl Neut % (Auto) (34.0-71.1) % Lymph % (Auto) (19.3-51.7) % [place] % (Auto) (4.7-12.5) % Eos % (Auto) (0.7-5.8) Baso % (Auto) (0.1-1.2) % Neut # (Auto) (1.56-6.13) K/mm3 Lymph # (Auto) (1.18-3.74) K/mm3 [place] # (Auto) (0.24-0.36) K/mm3 Eos # (Auto) (0.04-0.36) K/mm3 Baso # (Auto) (0.01-0.08) K/mm3 Manual Slide Review APTT 65.4 H D 108.8 H* D (21.7-31.4) SECONDS Sodium (136-145) mEq/L Potassium (3.5-5.1) mEq/L Chloride (98-107) mEq/L Carbon Dioxide (21-32) mEq/L Anion Gap (5-15) BUN (7-18) mg/dL Creatinine (0.55-1.02) mg/dL Est Cr Clr Drug Dosing mL/min Estimated GFR (MDRD) (>60) mL/min BUN/Creatinine Ratio (14-18) Glucose (70-99) mg/dL POC Glucose 166 H (70-99) mg/dL Lactic Acid (0.4-2.0) mmol/L Calcium (8.5-10.1) mg/dL Magnesium (1.8-2.4) mg/dL Total Bilirubin (0.2-1.0) mg/dL AST (15-37) U/L ALT (14-59) U/L Alkaline Phosphatase (46-116) U/L C-Reactive Protein (<1.0) mg/dL Total Protein (6.4-8.2) g/dl Albumin (3.4-5.0) g/dl Globulin gm/dL Albumin/Globulin Ratio (1-2) 04/12/21 04/12/21 04/12/21 Range/Units 06:03 06:03 06:03 WBC 13.27 H (3.98-10.04) K/mm3 RBC 4.20 (3.98-5.22) M/mm3 Hgb 12.0 (11.2-15.7) gm/dl Hct 37.5 (34.1-44.9) % MCV 89.3 (79.4-94.8) fl MCH 28.6 (25.6-32.2) pg MCHC 32.0 L (32.2-35.5) g/dl RDW Std Deviation 46.2 (36.4-46.3) fL Plt Count 194 (182-369) K/mm3 MPV 9.7 (9.4-12.3) fl Neut % (Auto) 74.4 H (34.0-71.1) % Lymph % (Auto) 14.5 L (19.3-51.7) % [place] % (Auto) 10.4 (4.7-12.5) % Eos % (Auto) 0.1 L (0.7-5.8) Baso % (Auto) 0.2 (0.1-1.2) % Neut # (Auto) 9.87 H (1.56-6.13) K/mm3 Lymph # (Auto) 1.93 (1.18-3.74) K/mm3 [place] # (Auto) 1.38 H (0.24-0.36) K/mm3 Eos # (Auto) 0.01 L (0.04-0.36) K/mm3 Baso # (Auto) 0.03 (0.01-0.08) K/mm3 Manual Slide Review Normal smear APTT > 139.0 H* D (21.7-31.4) SECONDS Sodium 137 (136-145) mEq/L Potassium 4.7 (3.5-5.1) mEq/L Chloride 102 (98-107) mEq/L Carbon Dioxide 24 (21-32) mEq/L Anion Gap 15.7 H (5-15) BUN 28 H (7-18) mg/dL Creatinine 1.4 H (0.55-1.02) mg/dL Est Cr Clr Drug Dosing 47.96 mL/min Estimated GFR (MDRD) 40 (>60) mL/min BUN/Creatinine Ratio 20.0 H (14-18) Glucose 155 H (70-99) mg/dL POC Glucose (70-99) mg/dL Lactic Acid (0.4-2.0) mmol/L Calcium 7.6 L (8.5-10.1) mg/dL Magnesium 2.1 (1.8-2.4) mg/dL Total Bilirubin 0.3 (0.2-1.0) mg/dL AST 479 H (15-37) U/L ALT 555 H (14-59) U/L Alkaline Phosphatase 93 (46-116) U/L C-Reactive Protein 6.1 H* (<1.0) mg/dL Total Protein 6.9 (6.4-8.2) g/dl Albumin 3.1 L (3.4-5.0) g/dl Globulin 3.8 gm/dL Albumin/Globulin Ratio 0.8 L (1-2) Result Diagrams: 04/12/21 06:03 04/12/21 13:45 Sepsis Event Note - Evaluation Sepsis Screening Result: Severe Sepsis Risk - Focused Exam Vital Signs: Vital Signs Temp Temp Pulse Resp BP BP Pulse Ox 04/12/21 07:55 04/12/21 05:00 96 24 H 96 04/12/21 04:02 99 23 H 98 04/12/21 04:00 97.5 F 24 H 109/83 96 04/12/21 03:00 99 23 H 96 04/12/21 02:00 103 H 26 H 95 04/12/21 01:00 103 H 25 H 95 04/12/21 00:01 98 F 25 H 93/73 96 04/11/21 23:00 107 H 21 H 96 04/11/21 22:48 04/11/21 22:00 110 H 21 H 100 04/11/21 21:47 111 H 26 H 92/80 99 04/11/21 21:20 96.8 F L 28 H 105/72 94 L Pulse Ox Pulse Ox 04/12/21 07:55 96 04/12/21 05:00 04/12/21 04:02 04/12/21 04:00 04/12/21 03:00 04/12/21 02:00 04/12/21 01:00 04/12/21 00:01 04/11/21 23:00 04/11/21 22:48 100 04/11/21 22:00 04/11/21 21:47 04/11/21 21:20 - Problem List & Annotations (1) Pneumonia due to COVID-19 virus SNOMED Code(s): 952805155811255438 Code(s): U07.1 - COVID-19; J12.82 - PNEUMONIA DUE TO CORONAVIRUS DISEASE 2018 Status: Acute Current Visit: Yes (2) Respiratory failure with hypoxia SNOMED Code(s): 25984257821902955 Code(s): J96.91 - RESPIRATORY FAILURE, UNSPECIFIED WITH HYPOXIA Status: Acute Current Visit: Yes (3) Pulmonary embolism SNOMED Code(s): 11446373 Code(s): I26.99 - OTHER PULMONARY EMBOLISM WITHOUT ACUTE COR PULMONALE Status: Acute Current Visit: Yes - Problem List Review Problem List Initiated/Reviewed/Updated: Yes - My Orders Last 24 Hours: My Active Orders 04/11/21 15:55 PROCALCITONIN [REF] Routine 04/11/21 Dinner Regular Diet [DIET] 04/11/21 20:33 Nurse Communication: Isolation [RC] ASDIRECTED Oxygen Therapy [RC] PRN RT Incentive Spirometry [RC] ASDIRECTED Up With Assistance [RC] ASDIRECTED VTE/DVT Education [RC] Vital Signs [RC] Q4HR Acetaminophen [TylenoL] 650 mg PO Q4H PRN Albuterol/Ipratropium [DuoNeb 3.0-0.5 MG/3 ML] 3 ml NEB Q4H PRN Isolation [COMM] Stat RT Acapella [RESPCARE] Routine Resuscitation Status Routine 04/11/21 20:35 Positioning, Patient [RC] ASDIRECTED 04/11/21 20:37 RT Aerosol Therapy [RC] ASDIRECTED 04/11/21 20:45 Heparin Sodium/D5W [Heparin 25,000 Units in D5W 500 ML] 25,000 units in 500 ml IV TITRATE 04/11/21 21:54 Urinary Catheter Assessment [RC] Q4HR 04/11/21 22:00 Insert Reed Catheter [Insert Urinary Catheter] [OM.PC] Q24H 04/11/21 23:16 Ondansetron [Zofran] 4 mg IVPUSH Q4H PRN 04/12/21 09:00 dexAMETHasone 6 mg PO DAILY 04/12/21 14:45 COMPREHENSIVE METABOLIC PN,CMP [CHEM] Routine PTT,PARTIAL THROMBOPLSTIN TIME [COAG] Q6H 04/12/21 20:45 PTT,PARTIAL THROMBOPLSTIN TIME [COAG] Q6H 04/13/21 02:45 PTT,PARTIAL THROMBOPLSTIN TIME [COAG] Q6H 04/13/21 05:11 C-REACTIVE PROTEIN [CHEM] AM CBC WITH AUTO DIFF [HEME] AM CMP [COMPREHENSIVE METABOLIC PN,CMP] [CHEM] AM MAGNESIUM [CHEM] AM 04/13/21 08:45 PTT,PARTIAL THROMBOPLSTIN TIME [COAG] Q6H 04/14/21 05:11 C-REACTIVE PROTEIN [CHEM] AM CBC WITH AUTO DIFF [HEME] AM CMP [COMPREHENSIVE METABOLIC PN,CMP] [CHEM] AM MAGNESIUM [CHEM] AM 04/15/21 05:11 C-REACTIVE PROTEIN [CHEM] AM CBC WITH AUTO DIFF [HEME] AM CMP [COMPREHENSIVE METABOLIC PN,CMP] [CHEM] AM MAGNESIUM [CHEM] AM 04/16/21 05:11 C-REACTIVE PROTEIN [CHEM] AM CBC WITH AUTO DIFF [HEME] AM CMP [COMPREHENSIVE METABOLIC PN,CMP] [CHEM] AM MAGNESIUM [CHEM] AM - Plan Plan:: 50-year-old female with history of DVT after delivery 25 years ago is admitted to the ICU with COVID-19 pneumonia, extensive pulmonary embolism, cardiac decompensation COVID-19 pneumonia with respiratory failure * Received dexamethasone and remdesivir in the emergency department * White count decreased to 13.3, C-reactive protein decreased to 6.1, . * Currently on BiPAP * Patient did receive the Nabil & Nabil vaccine on 03/21/2021 * CT of the chest is compatible with mild to moderate Covid pneumonia bilaterally, left worse than right Prominent pulmonary emboli bilaterally with cardiac decompensation * No significant shortness of breath, just periodically for the last 7 days, prior to her syncopal episode today. * D-dimer 24 * CTA demonstrating prominent pulmonary emboli with cardiac decompensation * No ICU beds available therefore she cannot be seen by interventional radiology * Started on heparin drip in the emergency department * Respiratory failure secondary to both COVID-19 pneumonia and pulmonary emboli * Had DVT while 25 years ago * Heparin drip was held twice because of elevated APTT Plan * Admit to ICU * Strict isolation * Heparin drip for 48 hours, requiring another 24 hours * Continue dexamethasone and remdesivir * Consider Actemra. Currently CRP did decrease. Will continue to follow and consider Actemra tomorrow * Follow CBC, CMP, mag, Phos, C-reactive protein * PTT every 6 hours until stable * FiO2 to keep SPO2 between 88 and 94%. * RT, Acapella, I-S * Albuterol and DuoNebs as needed * CODE STATUS: Full code
[2021-04-12] MEDS: Heparin Sodium/D5W 25,000 UNITS/500 ML BAG IV SCH (10:57)
[2021-04-12] MEDS ORDERED: Lactated Ringers 1,000 ML IV SCH (14:45)
[2021-04-12] MEDS ORDERED: Sodium Chloride 0.9% 1,000 ML IV SCH (14:45)
[2021-04-13] MEDS: Heparin Sodium/D5W 25,000 UNITS/500 ML BAG IV SCH (02:52)
[2021-04-13] MEDS: Dexamethasone 4 MG Tab PO SCH (08:16)
[2021-04-13 10:13] LABS: HEMOGLOBIN A1C 5.9 %
--- NOTE | 2021-04-13 16:40 | PCM.PN ---
- General Info Date of Service: 04/13/21 Admission Dx/Problem (Free Text): Admission Diagnosis/Problem Admission Diagnosis/Problem Hypoxia Subjective Update: 50-year-old female admitted with COVID-19 pneumonia and bilateral pulmonary emboli with cardiac decompensation. Improved oxygenation. Still on high flow nasal cannula at 45 L and 40%. On heparin drip and last 2 APTT's are within therapeutic range Functional Status: Reports: Pain Controlled - Review of Systems General: Reports: No Symptoms HEENT: Reports: No Symptoms Pulmonary: Reports: Shortness of Breath, Cough Cardiovascular: Reports: No Symptoms Gastrointestinal: Reports: No Symptoms Musculoskeletal: Reports: No Symptoms - Patient Data Vitals - Most Recent: Last Vital Signs Temp 98.1 F 04/13/21 14:46 Pulse 88 04/13/21 14:46 Resp 22 H 04/13/21 14:46 BP 136/90 04/13/21 14:46 Pulse Ox 95 04/13/21 15:00 Weight - Most Recent: 326 lb I&O - Last 24 Hours: Intake & Output 04/13/21 04/13/21 04/13/21 06:59 14:59 22:59 Intake Total 2401 1580 600 Output Total 1300 1580 1100 Balance 1101 0 -500 Lab Results Last 24 Hours: Laboratory Results - last 24 hr 04/12/21 04/13/21 04/13/21 Range/Units 20:42 02:59 02:59 WBC 14.40 H (3.98-10.04) K/mm3 RBC 3.92 L (3.98-5.22) M/mm3 Hgb 11.1 L (11.2-15.7) gm/dl Hct 35.0 (34.1-44.9) % MCV 89.3 (79.4-94.8) fl MCH 28.3 (25.6-32.2) pg MCHC 31.7 L (32.2-35.5) g/dl RDW Std Deviation 43.8 (36.4-46.3) fL Plt Count 217 (182-369) K/mm3 MPV 10.0 (9.4-12.3) fl Neut % (Auto) 79.7 H (34.0-71.1) % Lymph % (Auto) 10.1 L (19.3-51.7) % [place] % (Auto) 9.7 (4.7-12.5) % Eos % (Auto) 0.1 L (0.7-5.8) Baso % (Auto) 0.1 (0.1-1.2) % Neut # (Auto) 11.49 H (1.56-6.13) K/mm3 Lymph # (Auto) 1.45 (1.18-3.74) K/mm3 [place] # (Auto) 1.39 H (0.24-0.36) K/mm3 Eos # (Auto) 0.01 L (0.04-0.36) K/mm3 Baso # (Auto) 0.01 (0.01-0.08) K/mm3 Manual Slide Review Abnormal smear APTT 55.8 H (21.7-31.4) SECONDS Sodium 138 (136-145) mEq/L Potassium 4.7 (3.5-5.1) mEq/L Chloride 100 (98-107) mEq/L Carbon Dioxide 27 (21-32) mEq/L Anion Gap 15.7 H (5-15) BUN 26 H (7-18) mg/dL Creatinine 1.2 H (0.55-1.02) mg/dL Est Cr Clr Drug Dosing 55.95 mL/min Estimated GFR (MDRD) 47 (>60) mL/min BUN/Creatinine Ratio 21.7 H (14-18) Glucose 152 H (70-99) mg/dL Hemoglobin A1c ( - 5.6) % Calcium 7.8 L (8.5-10.1) mg/dL Magnesium 2.2 (1.8-2.4) mg/dL Total Bilirubin 0.3 (0.2-1.0) mg/dL AST 165 H (15-37) U/L ALT 377 H (14-59) U/L Alkaline Phosphatase 79 (46-116) U/L C-Reactive Protein 4.9 H* (<1.0) mg/dL Total Protein 6.5 (6.4-8.2) g/dl Albumin 2.9 L (3.4-5.0) g/dl Globulin 3.6 gm/dL Albumin/Globulin Ratio 0.8 L (1-2) 04/13/21 04/13/21 Range/Units 02:59 02:59 WBC (3.98-10.04) K/mm3 RBC (3.98-5.22) M/mm3 Hgb (11.2-15.7) gm/dl Hct (34.1-44.9) % MCV (79.4-94.8) fl MCH (25.6-32.2) pg MCHC (32.2-35.5) g/dl RDW Std Deviation (36.4-46.3) fL Plt Count (182-369) K/mm3 MPV (9.4-12.3) fl Neut % (Auto) (34.0-71.1) % Lymph % (Auto) (19.3-51.7) % [place] % (Auto) (4.7-12.5) % Eos % (Auto) (0.7-5.8) Baso % (Auto) (0.1-1.2) % Neut # (Auto) (1.56-6.13) K/mm3 Lymph # (Auto) (1.18-3.74) K/mm3 [place] # (Auto) (0.24-0.36) K/mm3 Eos # (Auto) (0.04-0.36) K/mm3 Baso # (Auto) (0.01-0.08) K/mm3 Manual Slide Review APTT 55.9 H (21.7-31.4) SECONDS Sodium (136-145) mEq/L Potassium (3.5-5.1) mEq/L Chloride (98-107) mEq/L Carbon Dioxide (21-32) mEq/L Anion Gap (5-15) BUN (7-18) mg/dL Creatinine (0.55-1.02) mg/dL Est Cr Clr Drug Dosing mL/min Estimated GFR (MDRD) (>60) mL/min BUN/Creatinine Ratio (14-18) Glucose (70-99) mg/dL Hemoglobin A1c 5.9 H ( - 5.6) % Calcium (8.5-10.1) mg/dL Magnesium (1.8-2.4) mg/dL Total Bilirubin (0.2-1.0) mg/dL AST (15-37) U/L ALT (14-59) U/L Alkaline Phosphatase (46-116) U/L C-Reactive Protein (<1.0) mg/dL Total Protein (6.4-8.2) g/dl Albumin (3.4-5.0) g/dl Globulin gm/dL Albumin/Globulin Ratio (1-2) Christiano Results Last 24 Hours: Microbiology 04/11/21 05:38 Blood Culture - Preliminary Blood - Venous - Lab Draw 04/11/21 05:30 Blood Culture - Preliminary Blood - Venous Med Orders - Current: Current Medications Acetaminophen (Acetaminophen 325 Mg Tab) 650 mg PO Q4H PRN PRN Reason: Pain (Mild 1-3)/fever Albuterol/Ipratropium (Albuterol/Ipratropium 3.0-0.5 Mg/3 Ml Neb Soln) 3 ml NEB Q4H PRN PRN Reason: Shortness Of Breath/wheezing Last Admin: 04/12/21 14:27 Dose: 3 ml Documented by: Dexamethasone (Dexamethasone 4 Mg Tab) 6 mg PO DAILY KAMRAN Stop: 04/21/21 09:01 Last Admin: 04/13/21 08:16 Dose: 6 mg Documented by: Enoxaparin Sodium (Enoxaparin 150 Mg/1 Ml Syringe) 150 mg SUBCUT Q12H KAMRAN Heparin Sodium/Dextrose (Heparin 25,000 Units In D5w 500 Ml) 25,000 units in 500 mls @ 53.887 mls/hr IV TITRATE KAMRAN; Protocol Last Admin: 04/13/21 02:52 Dose: 10 units/kg/hr, 29.937 mls/hr Documented by: Heparin Sodium/Dextrose (Heparin 25,000 Units In D5w 500 Ml) 25,000 units in 500 mls @ 53.887 mls/hr IV TITRATE KAMRAN; Protocol Ondansetron HCl (Ondansetron 4 Mg/2 Ml Sdv) 4 mg IVPUSH Q4H PRN PRN Reason: Nausea/Vomiting Last Admin: 04/11/21 23:27 Dose: 4 mg Documented by: Discontinued Medications Dexamethasone (Dexamethasone 10 Mg/Ml Sdv) 6 mg IVPUSH ONETIME STA Stop: 04/11/21 05:11 Last Admin: 04/11/21 05:26 Dose: 6 mg Documented by: Sodium Chloride (Normal Saline) 1,000 mls @ 999 mls/hr IV ONETIME ONE Stop: 04/11/21 06:03 Last Admin: 04/11/21 05:04 Dose: 999 mls/hr Documented by: Remdesivir 200 mg/ Sodium (Chloride) 250 mls @ 250 mls/hr IV ONETIME ONE Stop: 04/11/21 05:12 Last Admin: 04/11/21 05:27 Dose: 250 mls/hr Documented by: Sodium Chloride (Normal Saline) 1,000 mls @ 150 mls/hr IV ASDIRECTED KAMRAN Last Admin: 04/11/21 06:19 Dose: 150 mls/hr Documented by: Sodium Chloride (Normal Saline) 100 mls @ 60 mls/hr IV ASDIRECTED KAMRAN Last Admin: 04/11/21 08:07 Dose: 60 mls/hr Documented by: Remdesivir 100 mg/ Sodium (Chloride) 100 mls @ 100 mls/hr IV Q24H KAMRAN Stop: 04/15/21 06:59 Last Admin: 04/12/21 07:47 Dose: 100 mls/hr Documented by: Lactated Ringer's (Ringers, Lactated) 500 mls @ 500 mls/hr IV .BOLUS ONE Stop: 04/12/21 08:33 Last Admin: 04/12/21 07:46 Dose: 500 mls/hr Documented by: Lactated Ringer's (Ringers, Lactated) Confirm Administered Dose 1,000 mls @ as directed .ROUTE .STK-MED ONE Stop: 04/12/21 08:44 Last Admin: 04/12/21 08:51 Dose: Not Given Documented by: Sodium Chloride (Normal Saline) 1,000 mls @ 50 mls/hr IV ASDIRECTED COUNTS INCLUDE 234 BEDS AT THE [facility] Lactated Ringer's (Ringers, Lactated) 1,000 mls @ 50 mls/hr IV ASDIRECTED COUNTS INCLUDE 234 BEDS AT THE [facility] Iopamidol (Iopamidol 755 Mg/Ml 100 Ml Bottle) 100 ml IVPUSH ONETIME ONE Stop: 04/11/21 07:44 Last Admin: 04/11/21 08:06 Dose: 100 ml Documented by: Ondansetron HCl (Ondansetron 4 Mg/2 Ml Sdv) 4 mg IVPUSH ONETIME ONE Stop: 04/11/21 06:28 Last Admin: 04/11/21 06:37 Dose: 4 mg Documented by: Sodium Chloride (Sodium Chloride 0.9% 10 Ml Syringe) 10 ml FLUSH ONETIME ONE Stop: 04/11/21 07:44 Last Admin: 04/11/21 08:07 Dose: 10 ml Documented by: - Exam Quality Assessment: Supplemental Oxygen Urinary Catheter Total Time: 1Days 14Hours General: Alert, Oriented HEENT: Pupils Equal, Mucous Membr. Moist/[place] Neck: Supple Lungs: Crackles (Bibasilar). No: Normal Respiratory Effort (Mildly increased respiratory rate) Cardiovascular: Regular Rate, Regular Rhythm GI/Abdominal Exam: Normal Bowel Sounds, Soft, No Distention - Patient Data Lab Results Last 24 hrs: Laboratory Results - last 24 hr 04/12/21 04/13/21 04/13/21 Range/Units 20:42 02:59 02:59 WBC 14.40 H (3.98-10.04) K/mm3 RBC 3.92 L (3.98-5.22) M/mm3 Hgb 11.1 L (11.2-15.7) gm/dl Hct 35.0 (34.1-44.9) % MCV 89.3 (79.4-94.8) fl MCH 28.3 (25.6-32.2) pg MCHC 31.7 L (32.2-35.5) g/dl RDW Std Deviation 43.8 (36.4-46.3) fL Plt Count 217 (182-369) K/mm3 MPV 10.0 (9.4-12.3) fl Neut % (Auto) 79.7 H (34.0-71.1) % Lymph % (Auto) 10.1 L (19.3-51.7) % [place] % (Auto) 9.7 (4.7-12.5) % Eos % (Auto) 0.1 L (0.7-5.8) Baso % (Auto) 0.1 (0.1-1.2) % Neut # (Auto) 11.49 H (1.56-6.13) K/mm3 Lymph # (Auto) 1.45 (1.18-3.74) K/mm3 [place] # (Auto) 1.39 H (0.24-0.36) K/mm3 Eos # (Auto) 0.01 L (0.04-0.36) K/mm3 Baso # (Auto) 0.01 (0.01-0.08) K/mm3 Manual Slide Review Abnormal smear APTT 55.8 H (21.7-31.4) SECONDS Sodium 138 (136-145) mEq/L Potassium 4.7 (3.5-5.1) mEq/L Chloride 100 (98-107) mEq/L Carbon Dioxide 27 (21-32) mEq/L Anion Gap 15.7 H (5-15) BUN 26 H (7-18) mg/dL Creatinine 1.2 H (0.55-1.02) mg/dL Est Cr Clr Drug Dosing 55.95 mL/min Estimated GFR (MDRD) 47 (>60) mL/min BUN/Creatinine Ratio 21.7 H (14-18) Glucose 152 H (70-99) mg/dL Hemoglobin A1c ( - 5.6) % Calcium 7.8 L (8.5-10.1) mg/dL Magnesium 2.2 (1.8-2.4) mg/dL Total Bilirubin 0.3 (0.2-1.0) mg/dL AST 165 H (15-37) U/L ALT 377 H (14-59) U/L Alkaline Phosphatase 79 (46-116) U/L C-Reactive Protein 4.9 H* (<1.0) mg/dL Total Protein 6.5 (6.4-8.2) g/dl Albumin 2.9 L (3.4-5.0) g/dl Globulin 3.6 gm/dL Albumin/Globulin Ratio 0.8 L (1-2) 04/13/21 04/13/21 Range/Units 02:59 02:59 WBC (3.98-10.04) K/mm3 RBC (3.98-5.22) M/mm3 Hgb (11.2-15.7) gm/dl Hct (34.1-44.9) % MCV (79.4-94.8) fl MCH (25.6-32.2) pg MCHC (32.2-35.5) g/dl RDW Std Deviation (36.4-46.3) fL Plt Count (182-369) K/mm3 MPV (9.4-12.3) fl Neut % (Auto) (34.0-71.1) % Lymph % (Auto) (19.3-51.7) % [place] % (Auto) (4.7-12.5) % Eos % (Auto) (0.7-5.8) Baso % (Auto) (0.1-1.2) % Neut # (Auto) (1.56-6.13) K/mm3 Lymph # (Auto) (1.18-3.74) K/mm3 [place] # (Auto) (0.24-0.36) K/mm3 Eos # (Auto) (0.04-0.36) K/mm3 Baso # (Auto) (0.01-0.08) K/mm3 Manual Slide Review APTT 55.9 H (21.7-31.4) SECONDS Sodium (136-145) mEq/L Potassium (3.5-5.1) mEq/L Chloride (98-107) mEq/L Carbon Dioxide (21-32) mEq/L Anion Gap (5-15) BUN (7-18) mg/dL Creatinine (0.55-1.02) mg/dL Est Cr Clr Drug Dosing mL/min Estimated GFR (MDRD) (>60) mL/min BUN/Creatinine Ratio (14-18) Glucose (70-99) mg/dL Hemoglobin A1c 5.9 H ( - 5.6) % Calcium (8.5-10.1) mg/dL Magnesium (1.8-2.4) mg/dL Total Bilirubin (0.2-1.0) mg/dL AST (15-37) U/L ALT (14-59) U/L Alkaline Phosphatase (46-116) U/L C-Reactive Protein (<1.0) mg/dL Total Protein (6.4-8.2) g/dl Albumin (3.4-5.0) g/dl Globulin gm/dL Albumin/Globulin Ratio (1-2) Result Diagrams: 04/13/21 02:59 04/13/21 02:59 Christiano Results Last 24 hrs: Microbiology 04/11/21 05:38 Blood Culture - Preliminary Blood - Venous - Lab Draw 04/11/21 05:30 Blood Culture - Preliminary Blood - Venous Sepsis Event Note - Evaluation Sepsis Screening Result: No Definite Risk - Focused Exam Vital Signs: Vital Signs Temp Temp Pulse Pulse Resp BP BP 04/13/21 15:00 04/13/21 14:46 98.1 F 88 22 H 136/90 04/13/21 12:00 97.6 F 84 20 126/92 H 04/13/21 10:54 04/13/21 09:00 80 20 04/13/21 08:00 97.4 F 87 20 138/91 H 04/13/21 06:00 75 22 H 04/13/21 05:00 82 17 Pulse Ox Pulse Ox Pulse Ox 04/13/21 15:00 95 04/13/21 14:46 97 04/13/21 12:00 95 04/13/21 10:54 93 L 04/13/21 09:00 97 04/13/21 08:00 97 04/13/21 06:00 95 04/13/21 05:00 93 L - Problem List & Annotations (1) Pneumonia due to COVID-19 virus SNOMED Code(s): 099665978599887721 Code(s): U07.1 - COVID-19; J12.82 - PNEUMONIA DUE TO CORONAVIRUS DISEASE 2019 Status: Acute Current Visit: Yes (2) Respiratory failure with hypoxia SNOMED Code(s): 89564660727698672 Code(s): J96.91 - RESPIRATORY FAILURE, UNSPECIFIED WITH HYPOXIA Status: Acute Current Visit: Yes (3) Pulmonary embolism SNOMED Code(s): 96661639 Code(s): I26.99 - OTHER PULMONARY EMBOLISM WITHOUT ACUTE COR PULMONALE Status: Acute Current Visit: Yes - Problem List Review Problem List Initiated/Reviewed/Updated: Yes - My Orders Last 24 Hours: My Active Orders 04/13/21 08:45 PTT,PARTIAL THROMBOPLSTIN TIME [COAG] Q6H 04/13/21 21:00 Enoxaparin [Lovenox] 150 mg SUBCUT Q12H 04/14/21 05:11 C-REACTIVE PROTEIN [CHEM] AM CBC WITH AUTO DIFF [HEME] AM CMP [COMPREHENSIVE METABOLIC PN,CMP] [CHEM] AM MAGNESIUM [CHEM] AM 04/14/21 07:00 PT Evaluation and Treatment [CONS] Routine 04/15/21 05:11 C-REACTIVE PROTEIN [CHEM] AM CBC WITH AUTO DIFF [HEME] AM CMP [COMPREHENSIVE METABOLIC PN,CMP] [CHEM] AM MAGNESIUM [CHEM] AM 04/16/21 05:11 C-REACTIVE PROTEIN [CHEM] AM CBC WITH AUTO DIFF [HEME] AM CMP [COMPREHENSIVE METABOLIC PN,CMP] [CHEM] AM MAGNESIUM [CHEM] AM - Plan Plan:: 50-year-old female with history of DVT after delivery 25 years ago is admitted to the ICU with COVID-19 pneumonia, extensive pulmonary embolism, cardiac decompensation COVID-19 pneumonia with respiratory failure * Received dexamethasone and remdesivir in the emergency department * White count stable at 14.4, C-reactive protein decreased to 4.9. * Currently on high flow nasal cannula 45 L and 40% FiO2 * Patient did receive the Nabil & Nabil vaccine on 03/21/2021 * CT of the chest is compatible with mild to moderate Covid pneumonia sydnye aterally, left worse than right Prominent pulmonary emboli bilaterally with cardiac decompensation * No significant shortness of breath, just periodically for the last 7 days, prior to her syncopal episode today. * D-dimer 24 * CTA demonstrating prominent pulmonary emboli with cardiac decompensation * No ICU beds available therefore she cannot be seen by interventional radiology * Started on heparin drip in the emergency department * Respiratory failure secondary to both COVID-19 pneumonia and pulmonary emboli * Had DVT while 25 years ago * Heparin drip was held twice because of elevated APTT Plan * Admit to ICU * Strict isolation * Heparin drip for 60 hours. * Switch to Lovenox 1 mg/kg every 12 hours tonight * Continue dexamethasone and remdesivir day 3 * Patient's respiratory status is likely as much affected by the pulmonary embolism as the COVID-19 with Acute Pneumonia. Therefore, we will hold off on Actemra. * Echocardiogram tomorrow * PT ordered because of 2 episodes of syncope * Follow CBC, CMP, mag, Phos, C-reactive protein * PTT every 6 hours until stable * FiO2 to keep SPO2 between 88 and 94%. * RT, Acapella, I-S * Albuterol and DuoNebs as needed * CODE STATUS: Full code
[2021-04-13] MEDS ORDERED: Enoxaparin 150 MG/1 ML Syringe SUBCUT SCH (21:00)
--- NOTE | 2021-04-14 08:29 | PCM.PN ---
- General Info Date of Service: 04/14/21 Admission Dx/Problem (Free Text): Admission Diagnosis/Problem Admission Diagnosis/Problem Hypoxia Subjective Update: 50-year-old female patient admitted for Covid pneumonia and found to have significant PEs with right heart strain. Unable to be transferred due to no beds available in the entire region. Heparin drip was discontinued and she was started on Lovenox overnight. We will discontinue this and start Eliquis 10 mg twice daily today. She is been weaned down to 4 L of oxygen and is doing quite well. She states she feels a lot better than yesterday. Labs remain stable. She remains on dexamethasone. RT continuing to attempt to wean oxygen. She does have a Menon catheter in place which was placed after her syncopal episode in the emergency room. This will be removed today. Functional Status: Reports: Pain Controlled, Tolerating Diet, Ambulating, Urinating, Incentive Spirometry, Other (Acapella ). Denies: New Symptoms - Review of Systems General: Reports: No Symptoms, Weakness (improving ), Fatigue (improving ). Denies: Fever, Malaise, Chills HEENT: Reports: No Symptoms. Denies: Headaches Pulmonary: Reports: No Symptoms. Denies: Shortness of Breath, Cough, Sputum, Wheezing Cardiovascular: Reports: Dyspnea on Exertion. Denies: Chest Pain, Palpitations, Edema Gastrointestinal: Reports: No Symptoms. Denies: Abdominal Pain, Constipation, Diarrhea, Nausea, Vomiting Genitourinary: Reports: No Symptoms. Denies: Pain Musculoskeletal: Reports: No Symptoms Skin: Reports: No Symptoms. Denies: Cyanosis Neurological: Reports: No Symptoms. Denies: Confusion, Dizziness, Headache, Numbness, Seizure, Syncope, Tingling, Difficulty Walking Psychiatric: Reports: No Symptoms - Patient Data Vitals - Most Recent: Last Vital Signs Temp 97.8 F 04/13/21 20:28 Pulse 80 04/13/21 20:28 Resp 18 04/13/21 20:28 BP 144/79 H 04/13/21 20:28 Pulse Ox 96 04/14/21 05:51 Weight - Most Recent: 331 lb I&O - Last 24 Hours: Intake & Output 04/13/21 04/14/21 04/14/21 22:59 06:59 14:59 Intake Total 1722 Output Total 1100 1800 Balance 622 -1800 Lab Results Last 24 Hours: Laboratory Results - last 24 hr 04/13/21 04/14/21 04/14/21 Range/Units 02:59 03:04 03:04 WBC 14.88 H (3.98-10.04) K/mm3 RBC 3.99 (3.98-5.22) M/mm3 Hgb 11.4 (11.2-15.7) gm/dl Hct 35.8 (34.1-44.9) % MCV 89.7 (79.4-94.8) fl MCH 28.6 (25.6-32.2) pg MCHC 31.8 L (32.2-35.5) g/dl RDW Std Deviation 43.8 (36.4-46.3) fL Plt Count 238 (182-369) K/mm3 MPV 9.7 (9.4-12.3) fl Neut % (Auto) 80.5 H (34.0-71.1) % Lymph % (Auto) 10.3 L (19.3-51.7) % [place] % (Auto) 8.3 (4.7-12.5) % Eos % (Auto) 0.1 L (0.7-5.8) Baso % (Auto) 0.1 (0.1-1.2) % Neut # (Auto) 11.98 H (1.56-6.13) K/mm3 Lymph # (Auto) 1.53 (1.18-3.74) K/mm3 [place] # (Auto) 1.24 H (0.24-0.36) K/mm3 Eos # (Auto) 0.01 L (0.04-0.36) K/mm3 Baso # (Auto) 0.02 (0.01-0.08) K/mm3 APTT 30.5 D (21.7-31.4) SECONDS Sodium (136-145) mEq/L Potassium (3.5-5.1) mEq/L Chloride (98-107) mEq/L Carbon Dioxide (21-32) mEq/L Anion Gap (5-15) BUN (7-18) mg/dL Creatinine (0.55-1.02) mg/dL Est Cr Clr Drug Dosing mL/min Estimated GFR (MDRD) (>60) mL/min BUN/Creatinine Ratio (14-18) Glucose (70-99) mg/dL Hemoglobin A1c 5.9 H ( - 5.6) % Calcium (8.5-10.1) mg/dL Magnesium (1.8-2.4) mg/dL Total Bilirubin (0.2-1.0) mg/dL AST (15-37) U/L ALT (14-59) U/L Alkaline Phosphatase (46-116) U/L C-Reactive Protein (<1.0) mg/dL Total Protein (6.4-8.2) g/dl Albumin (3.4-5.0) g/dl Globulin gm/dL Albumin/Globulin Ratio (1-2) 04/14/21 Range/Units 03:04 WBC (3.98-10.04) K/mm3 RBC (3.98-5.22) M/mm3 Hgb (11.2-15.7) gm/dl Hct (34.1-44.9) % MCV (79.4-94.8) fl MCH (25.6-32.2) pg MCHC (32.2-35.5) g/dl RDW Std Deviation (36.4-46.3) fL Plt Count (182-369) K/mm3 MPV (9.4-12.3) fl Neut % (Auto) (34.0-71.1) % Lymph % (Auto) (19.3-51.7) % [place] % (Auto) (4.7-12.5) % Eos % (Auto) (0.7-5.8) Baso % (Auto) (0.1-1.2) % Neut # (Auto) (1.56-6.13) K/mm3 Lymph # (Auto) (1.18-3.74) K/mm3 [place] # (Auto) (0.24-0.36) K/mm3 Eos # (Auto) (0.04-0.36) K/mm3 Baso # (Auto) (0.01-0.08) K/mm3 APTT (21.7-31.4) SECONDS Sodium 138 (136-145) mEq/L Potassium 5.1 (3.5-5.1) mEq/L Chloride 104 (98-107) mEq/L Carbon Dioxide 29 (21-32) mEq/L Anion Gap 10.1 (5-15) BUN 29 H (7-18) mg/dL Creatinine 1.2 H (0.55-1.02) mg/dL Est Cr Clr Drug Dosing 55.95 mL/min Estimated GFR (MDRD) 47 (>60) mL/min BUN/Creatinine Ratio 24.2 H (14-18) Glucose 127 H (70-99) mg/dL Hemoglobin A1c ( - 5.6) % Calcium 8.1 L (8.5-10.1) mg/dL Magnesium 2.4 (1.8-2.4) mg/dL Total Bilirubin 0.3 (0.2-1.0) mg/dL AST 63 H (15-37) U/L ALT 286 H (14-59) U/L Alkaline Phosphatase 73 (46-116) U/L C-Reactive Protein 2.9 H* (<1.0) mg/dL Total Protein 6.6 (6.4-8.2) g/dl Albumin 2.9 L (3.4-5.0) g/dl Globulin 3.7 gm/dL Albumin/Globulin Ratio 0.8 L (1-2) Med Orders - Current: Current Medications Acetaminophen (Acetaminophen 325 Mg Tab) 650 mg PO Q4H PRN PRN Reason: Pain (Mild 1-3)/fever Albuterol/Ipratropium (Albuterol/Ipratropium 3.0-0.5 Mg/3 Ml Neb Soln) 3 ml NEB Q4H PRN PRN Reason: Shortness Of Breath/wheezing Last Admin: 04/12/21 14:27 Dose: 3 ml Documented by: Apixaban (Apixaban 5 Mg Tab) 10 mg PO BID KAMRAN Stop: 04/20/21 21:01 Dexamethasone (Dexamethasone 4 Mg Tab) 6 mg PO DAILY KAMRAN Stop: 04/21/21 09:01 Last Admin: 04/13/21 08:16 Dose: 6 mg Documented by: Ondansetron HCl (Ondansetron 4 Mg/2 Ml Sdv) 4 mg IVPUSH Q4H PRN PRN Reason: Nausea/Vomiting Last Admin: 04/11/21 23:27 Dose: 4 mg Documented by: Discontinued Medications Dexamethasone (Dexamethasone 10 Mg/Ml Sdv) 6 mg IVPUSH ONETIME STA Stop: 04/11/21 05:11 Last Admin: 04/11/21 05:26 Dose: 6 mg Documented by: Enoxaparin Sodium (Enoxaparin 150 Mg/1 Ml Syringe) 150 mg SUBCUT Q12H KAMRAN Last Admin: 04/13/21 19:59 Dose: 150 mg Documented by: Sodium Chloride (Normal Saline) 1,000 mls @ 999 mls/hr IV ONETIME ONE Stop: 04/11/21 06:03 Last Admin: 04/11/21 05:04 Dose: 999 mls/hr Documented by: Remdesivir 200 mg/ Sodium (Chloride) 250 mls @ 250 mls/hr IV ONETIME ONE Stop: 04/11/21 05:12 Last Admin: 04/11/21 05:27 Dose: 250 mls/hr Documented by: Sodium Chloride (Normal Saline) 1,000 mls @ 150 mls/hr IV ASDIRECTED KAMRAN Last Admin: 04/11/21 06:19 Dose: 150 mls/hr Documented by: Sodium Chloride (Normal Saline) 100 mls @ 60 mls/hr IV ASDIRECTED KAMRAN Last Admin: 04/11/21 08:07 Dose: 60 mls/hr Documented by: Heparin Sodium/Dextrose (Heparin 25,000 Units In D5w 500 Ml) 25,000 units in 500 mls @ 53.887 mls/hr IV TITRATE KAMRAN; Protocol Stop: 04/13/21 20:00 Last Titration: 04/13/21 19:59 Dose: 0 units/kg/hr, 0 mls/hr Documented by: Remdesivir 100 mg/ Sodium (Chloride) 100 mls @ 100 mls/hr IV Q24H KAMRAN Stop: 04/15/21 06:59 Last Admin: 04/12/21 07:47 Dose: 100 mls/hr Documented by: Heparin Sodium/Dextrose (Heparin 25,000 Units In D5w 500 Ml) 25,000 units in 500 mls @ 53.887 mls/hr IV TITRATE KAMRAN; Protocol Stop: 04/13/21 20:00 Lactated Ringer's (Ringers, Lactated) 500 mls @ 500 mls/hr IV .BOLUS ONE Stop: 04/12/21 08:33 Last Admin: 04/12/21 07:46 Dose: 500 mls/hr Documented by: Lactated Ringer's (Ringers, Lactated) Confirm Administered Dose 1,000 mls @ as directed .ROUTE .STK-MED ONE Stop: 04/12/21 08:44 Last Admin: 04/12/21 08:51 Dose: Not Given Documented by: Sodium Chloride (Normal Saline) 1,000 mls @ 50 mls/hr IV ASDIRECTED KAMRAN Lactated Ringer's (Ringers, Lactated) 1,000 mls @ 50 mls/hr IV ASDIRECTED KAMRAN Iopamidol (Iopamidol 755 Mg/Ml 100 Ml Bottle) 100 ml IVPUSH ONETIME ONE Stop: 04/11/21 07:44 Last Admin: 04/11/21 08:06 Dose: 100 ml Documented by: Ondansetron HCl (Ondansetron 4 Mg/2 Ml Sdv) 4 mg IVPUSH ONETIME ONE Stop: 04/11/21 06:28 Last Admin: 04/11/21 06:37 Dose: 4 mg Documented by: Sodium Chloride (Sodium Chloride 0.9% 10 Ml Syringe) 10 ml FLUSH ONETIME ONE Stop: 04/11/21 07:44 Last Admin: 04/11/21 08:07 Dose: 10 ml Documented by: - Exam Quality Assessment: Supplemental Oxygen (4L), Urine Catheter (remove today), DVT Prophylaxis Urinary Catheter Total Time: 2Days 9Hours General: Alert, Oriented, Cooperative, No Acute Distress HEENT: Pupils Equal, Pupils Reactive, Mucous Membr. Moist/[place]: Supple, Trachea Midline Lungs: Normal Respiratory Effort, Decreased Breath Sounds, Crackles Cardiovascular: Regular Rate, Regular Rhythm GI/Abdominal Exam: Normal Bowel Sounds, Soft, Non-Tender, No Organomegaly, No Distention (Female) Exam: Deferred Back Exam: Normal Inspection, Full Range of Motion Extremities: Normal Inspection, Normal Range of Motion, Non-Tender, No Pedal Edema, Normal Capillary Refill Peripheral Pulses: 2+: Radial (L), Radial (R) Skin: Warm, Dry, Intact Neurological: No New Focal Deficit Psy/Mental Status: Alert, Normal Affect, Normal Mood - Patient Data Lab Results Last 24 hrs: Laboratory Results - last 24 hr 04/13/21 04/14/21 04/14/21 Range/Units 02:59 03:04 03:04 WBC 14.88 H (3.98-10.04) K/mm3 RBC 3.99 (3.98-5.22) M/mm3 Hgb 11.4 (11.2-15.7) gm/dl Hct 35.8 (34.1-44.9) % MCV 89.7 (79.4-94.8) fl MCH 28.6 (25.6-32.2) pg MCHC 31.8 L (32.2-35.5) g/dl RDW Std Deviation 43.8 (36.4-46.3) fL Plt Count 238 (182-369) K/mm3 MPV 9.7 (9.4-12.3) fl Neut % (Auto) 80.5 H (34.0-71.1) % Lymph % (Auto) 10.3 L (19.3-51.7) % [place] % (Auto) 8.3 (4.7-12.5) % Eos % (Auto) 0.1 L (0.7-5.8) Baso % (Auto) 0.1 (0.1-1.2) % Neut # (Auto) 11.98 H (1.56-6.13) K/mm3 Lymph # (Auto) 1.53 (1.18-3.74) K/mm3 [place] # (Auto) 1.24 H (0.24-0.36) K/mm3 Eos # (Auto) 0.01 L (0.04-0.36) K/mm3 Baso # (Auto) 0.02 (0.01-0.08) K/mm3 APTT 30.5 D (21.7-31.4) SECONDS Sodium (136-145) mEq/L Potassium (3.5-5.1) mEq/L Chloride (98-107) mEq/L Carbon Dioxide (21-32) mEq/L Anion Gap (5-15) BUN (7-18) mg/dL Creatinine (0.55-1.02) mg/dL Est Cr Clr Drug Dosing mL/min Estimated GFR (MDRD) (>60) mL/min BUN/Creatinine Ratio (14-18) Glucose (70-99) mg/dL Hemoglobin A1c 5.9 H ( - 5.6) % Calcium (8.5-10.1) mg/dL Magnesium (1.8-2.4) mg/dL Total Bilirubin (0.2-1.0) mg/dL AST (15-37) U/L ALT (14-59) U/L Alkaline Phosphatase (46-116) U/L C-Reactive Protein (<1.0) mg/dL Total Protein (6.4-8.2) g/dl Albumin (3.4-5.0) g/dl Globulin gm/dL Albumin/Globulin Ratio (1-2) 04/14/21 Range/Units 03:04 WBC (3.98-10.04) K/mm3 RBC (3.98-5.22) M/mm3 Hgb (11.2-15.7) gm/dl Hct (34.1-44.9) % MCV (79.4-94.8) fl MCH (25.6-32.2) pg MCHC (32.2-35.5) g/dl RDW Std Deviation (36.4-46.3) fL Plt Count (182-369) K/mm3 MPV (9.4-12.3) fl Neut % (Auto) (34.0-71.1) % Lymph % (Auto) (19.3-51.7) % [place] % (Auto) (4.7-12.5) % Eos % (Auto) (0.7-5.8) Baso % (Auto) (0.1-1.2) % Neut # (Auto) (1.56-6.13) K/mm3 Lymph # (Auto) (1.18-3.74) K/mm3 [place] # (Auto) (0.24-0.36) K/mm3 Eos # (Auto) (0.04-0.36) K/mm3 Baso # (Auto) (0.01-0.08) K/mm3 APTT (21.7-31.4) SECONDS Sodium 138 (136-145) mEq/L Potassium 5.1 (3.5-5.1) mEq/L Chloride 104 (98-107) mEq/L Carbon Dioxide 29 (21-32) mEq/L Anion Gap 10.1 (5-15) BUN 29 H (7-18) mg/dL Creatinine 1.2 H (0.55-1.02) mg/dL Est Cr Clr Drug Dosing 55.95 mL/min Estimated GFR (MDRD) 47 (>60) mL/min BUN/Creatinine Ratio 24.2 H (14-18) Glucose 127 H (70-99) mg/dL Hemoglobin A1c ( - 5.6) % Calcium 8.1 L (8.5-10.1) mg/dL Magnesium 2.4 (1.8-2.4) mg/dL Total Bilirubin 0.3 (0.2-1.0) mg/dL AST 63 H (15-37) U/L ALT 286 H (14-59) U/L Alkaline Phosphatase 73 (46-116) U/L C-Reactive Protein 2.9 H* (<1.0) mg/dL Total Protein 6.6 (6.4-8.2) g/dl Albumin 2.9 L (3.4-5.0) g/dl Globulin 3.7 gm/dL Albumin/Globulin Ratio 0.8 L (1-2) Result Diagrams: 04/14/21 03:04 04/14/21 03:04 Sepsis Event Note - Evaluation Sepsis Screening Result: No Definite Risk - Focused Exam Vital Signs: Vital Signs Pulse Ox Pulse Ox 04/14/21 05:51 96 04/13/21 21:43 96 - Problem List & Annotations (1) COVID-19 SNOMED Code(s): 594223600 Code(s): U07.1 - COVID-19 Status: Acute Priority: High Current Visit: Yes (2) Hypoxemia SNOMED Code(s): 582100098 Code(s): R09.02 - HYPOXEMIA Status: Acute Priority: High Current Visit: Yes (3) Pneumonia due to COVID-19 virus SNOMED Code(s): 009983548656143018 Code(s): U07.1 - COVID-19; J12.82 - PNEUMONIA DUE TO CORONAVIRUS DISEASE 2019 Status: Acute Priority: High Current Visit: Yes (4) Pulmonary embolism SNOMED Code(s): 04249897 Code(s): I26.99 - OTHER PULMONARY EMBOLISM WITHOUT ACUTE COR PULMONALE Status: Acute Priority: High Current Visit: Yes Qualifiers: Pulmonary embolism type: unspecified Chronicity: acute Acute cor pulmonale presence: with acute cor pulmonale Qualified Code(s): I26.09 - Other pulmonary embolism with acute cor pulmonale (5) Respiratory failure with hypoxia SNOMED Code(s): 50559834781456400 Code(s): J96.91 - RESPIRATORY FAILURE, UNSPECIFIED WITH HYPOXIA Status: Acute Priority: High Current Visit: Yes Qualifiers: Chronicity: acute Qualified Code(s): J96.01 - Acute respiratory failure with hypoxia (6) Obesity SNOMED Code(s): 255787858, 752472027 Code(s): E66.9 - OBESITY, UNSPECIFIED Status: Chronic Priority: Medium Current Visit: Yes Qualifiers: Obesity type: due to excess calories Obesity classification: adult class 3 (BMI >= 40) Serious obesity comorbidity presence: without serious comorbidity Body mass index: BMI 50.0-59.9 Qualified Code(s): E66.01 - Morbid (severe) obesity due to excess calories; Z68.43 - Body mass index [BMI] 50.0-59.9, adult - Problem List Review Problem List Initiated/Reviewed/Updated: Yes - My Orders Last 24 Hours: My Active Orders 04/14/21 09:00 Apixaban [Eliquis] 10 mg PO BID - Plan Plan:: 50-year-old female with history of DVT after delivery 25 years ago is admitted to the ICU with COVID-19 pneumonia, extensive pulmonary embolism, cardiac decompensation COVID-19 pneumonia with respiratory failure * Received dexamethasone and remdesivir in the emergency department * White count stable at 14.8, C-reactive protein decreased to 2.9. * Currently on nasal cannula 4 L * Patient did receive the Nabil & Nabil vaccine on 03/21/2021 * CT of the chest is compatible with mild to moderate Covid pneumonia bilaterally, left worse than right Prominent pulmonary emboli bilaterally with cardiac decompensation * No significant shortness of breath, just periodically for the last 7 days, prior to her syncopal episode in the ED * D-dimer 24 * CTA demonstrating prominent pulmonary emboli with cardiac decompensation * No ICU beds available therefore she cannot be seen by interventional radiology * Started on heparin drip in the emergency department * Respiratory failure secondary to both COVID-19 pneumonia and pulmonary emboli * Had DVT while 25 years ago * Patient transitioned to Lovenox yesterday Obesity * Lifestyle modifications * Consider textile machine mechanic consult when appropriate Plan * Admit to ICU * Strict isolation * Discontinue Lovenox and start 10mg BID Eliquis for 7 days - then transition to 5mg BID * Continue dexamethasone day 4 * Remdesivir discontinued earlier due to acute transaminitis * Patient's respiratory status is likely as much affected by the pulmonary embolism as the COVID-19 with Acute Pneumonia. Therefore, we will hold off on Actemra. * Echocardiogram today (earliest it could be obtained) * PT ordered because of 2 episodes of syncope * Follow CBC, CMP, mag, Phos, C-reactive protein * FiO2 to keep SPO2 between 88 and 94%. * RT, Acapella, I-S * Prone whenever able * Albuterol and DuoNebs as needed * Remove menon catheter today * CODE STATUS: Full code
[2021-04-14] MEDS: Apixaban 5 MG Tab PO SCH ×2 (08:56→20:49)
[2021-04-14] MEDS: Dexamethasone 4 MG Tab PO SCH (08:57)
[2021-04-15] MEDS: Dexamethasone 4 MG Tab PO SCH (08:28)
[2021-04-15] MEDS: Apixaban 5 MG Tab PO SCH (08:29)
--- NOTE | 2021-04-15 13:45 | PCM.DCSUM1 ---
<Eyal Han - Last Filed: 04/15/21 14:03> Discharge Summary - Hospital Course HPI Initial Comments: 50-year-old female with 1 week history of headache, cough, fever of 101.4 max, and and shortness of breath presented to the emergency department today. She had a J&J Covid vaccination on 03/21/2021. Her was diagnosed on 04/02/2021 with COVID-19. When she developed a headache on 04/04/2021, she got tested for the first time and was positive. Since that day she is been intermittently dyspneic and on Wednesday she had her fever. Today she was going to the bathroom and passed out in the bathroom. EMS brought her to the emergency department after finding her hypoxemic. Initially in the emergency department her heart rate was 132 bpm and respiratory rate of 34. Oxygen saturations were 84% on high flow. She was placed on BiPAP. She had a CT angiogram after an elevated D-dimer which showed prominent pulmonary emboli within the distal main pulmonary arteries on both sides which extend into the segmental and subsegmental branches of both lower lungs as well as within the segmental branches within both upper lungs. Findings are compatible with prominent pulmonary embolism. There is bowing of the interventricular septum compatible with mild cardiac decompensation. Most of the day was spent trying to find appropriate inpatient facility. Unfortunately, there are no inpatient beds available for Covid positive patients or in the ICU in the entire state. Patient was placed on heparin drip in the emergency department. Patient did have another episode of syncope again in the emergency department. Blood pressure in the emergency department dropped down to 75/39. Patient was able to go back on high flow with oxygen saturations in the 90. Medicine service was called over 12 hours after she presented to the emergency department. This is because we did not have a bed available for her either until late in the afternoon. Patient states that she did have a DVT when she was 25 years ago. Diagnosis: Stroke: No - Discharge Data Discharge Date: 04/15/21 (Admit date: 04/11/2021) Discharge Disposition: Home, Self-Care 01 Condition: Good - Referral to Home Health Primary Care Physician: Radha Felix NP - Discharge Diagnosis/Problem(s) (1) COVID-19 SNOMED Code(s): 942938206 ICD Code: U07.1 - COVID-19 Status: Acute Priority: High Current Visit: Yes (2) Hypoxemia SNOMED Code(s): 211178230 ICD Code: R09.02 - HYPOXEMIA Status: Resolved Priority: High Current Visit: Yes (3) Pneumonia due to COVID-19 virus SNOMED Code(s): 584554495031690163 ICD Code: U07.1 - COVID-19; J12.82 - PNEUMONIA DUE TO CORONAVIRUS DISEASE 2019 Status: Acute Priority: High Current Visit: Yes (4) Pulmonary embolism SNOMED Code(s): 95371245 ICD Code: I26.99 - OTHER PULMONARY EMBOLISM WITHOUT ACUTE COR PULMONALE Status: Acute Priority: High Current Visit: Yes Qualifiers: Pulmonary embolism type: unspecified Chronicity: acute Acute cor pulmonale presence: with acute cor pulmonale Qualified Code(s): I26.09 - Other pulmonary embolism with acute cor pulmonale (5) Respiratory failure with hypoxia SNOMED Code(s): 86434507767726470 ICD Code: J96.91 - RESPIRATORY FAILURE, UNSPECIFIED WITH HYPOXIA Status: Resolved Priority: High Current Visit: Yes Qualifiers: Chronicity: acute Qualified Code(s): J96.01 - Acute respiratory failure with hypoxia (6) Obesity SNOMED Code(s): 030467590, 542640016 ICD Code: E66.9 - OBESITY, UNSPECIFIED Status: Chronic Priority: Medium Current Visit: Yes Qualifiers: Obesity type: due to excess calories Obesity classification: adult class 3 (BMI >= 40) Serious obesity comorbidity presence: without serious comorbidity Body mass index: BMI 50.0-59.9 Qualified Code(s): E66.01 - Morbid (severe) obesity due to excess calories; Z68.43 - Body mass index [BMI] 50.0-59.9, adult - Patient Summary/Data Consults: Consultations 04/14/21 07:00 PT Evaluation and Treatment [CONS] Routine Labs Pending at D/C: None Recommended Follow-up Testing/Procedures: Follow-up with primary care provider within 5 to 7 days of discharge, sooner if needed. * Patient started on Eliquis for her PE. She should continue 10 mg twice daily and start 5 mg twice daily on the morning of 04/21/2021. * Prescription for 10 mg and 5 mg sent with appropriate directions. * Patient cleared from isolation/quarantine while here * Discharged on 4 more days of 6 mg daily dexamethasone * Instructed continue to utilize her incentive spirometer and Acapella * Patient weaned off oxygen prior to discharge * Recommend repeat CBC, CMP, magnesium in follow-up. Consider repeat chest x- ray. * Patient given return to work note for 04/21/2021 unless she continues to feel poor. Hospital Course: This is a 50-year-old female who presented to our hospital on 04/11/2021 with dyspnea, headache, watery diarrhea, and diaphoresis. She was diagnosed with COVID-19 on 04/02/2021 and had received the [employer] Covid vaccine on 03/21/2021. She had received Regeneron earlier after testing positive. She was noted to be hypoxemic in the ED and was started on high flow oxygen, ultimately increasing to BiPAP. She is noted to have a very high D-dimer 24.53. Lactic acid was 2.2. Troponin was 0.498. CRP was 7.8. Procalcitonin was 0.89. CTA of the chest was obtained and showed a significant pulmonary embolisms with right heart strain. Pulmonary emboli were noted to begin within the distal main pulmonary arteries on both sides and extended the segmental and subsegmental branches of both lower lungs and the segmental branches of both upper lungs. Given CT results and elevated troponin plan was to transfer patient to appropriate higher level of care. Unfortunately no facilities had openings. Patient was started on a heparin drip. She was noted to be hypotensive in the ED with a blood pressure of 75/39. She subsequently admitted to the ICU for management of her Covid pneumonia, PE, and right heart strain. Patient was started on dexamethasone and remdesivir in the ED and this was continued on the floor. She was utilizing BiPAP in the ED as noted and at her worst on the floor was requiring high flow nasal cannula 50 L/min with 50% FiO2. Throughout her stay her oxygen was weaned down and she ultimately progressed to room air. She was proning and utilizing incentive spirometry and Acapella. She was transitioned from heparin to 1 mg/kg Lovenox. Ultimately she was started on 10 mg twice daily Eliquis for 7 days and will be transitioned outpatient to 5 mg twice daily Eliquis. She was noted to have 2 episodes of syncope earlier in the ED and physical therapy was ordered who recommended home independent. Unfortunately patient was noted to have acute transaminitis and remdesivir was stopped. She did have a Reed catheter placed after the syncopal episodes and this was removed without incident. She was voiding fine thereafter. Echocardiogram was obtained and showed "one. Left ventricular ejection fraction, by visual estimation, is 60 to 65%. 2. Normal left ventricular systolic function. 3. Normal pattern of LV diastolic filling. 4. Low normal right ventricular systolic function. 5. Right ventricular size is mildly enlarged. 6. Mildly dilated left atrium. 7. Normal aortic valve without any evidence of aortic stenosis or insufficiency. 8. Normal mitral valve without any evidence of mitral stenosis or regurgitation. 9. Trace tricuspid valve regurgitation. 10. The right ventricular systolic pressure is unable to be determined. 11. No regional wall motion abnormalities. Overall patient was doing quite well. She completed her isolation/quarantine while here. Should be discharged home today on a as needed albuterol inhaler, 4 more days of 6 mg p.o. dexamethasone, and 10 mg p.o. twice daily Eliquis. She was instructed to complete this prescription and transition to 5 mg p.o. twice daily Eliquis on 04/21/2021. Recommend follow-up with primary care provider within 5 to 7 days of discharge, sooner if needed. Recommend repeat CBC, CMP, magnesium, and consider follow-up chest x-ray. Patient's home multivitamins were continued. Patient discharged home on room air today. Patient instructed to continue to utilize incentive spirometry and Acapella for 1 to 2 weeks or until symptoms resolve. Patient does have a home CPAP and was utilizing this prior. She was instructed to continue this after discharge. Advised to contact primary care provider or return to the emergency room should symptoms return or worsen. - Patient Instructions Diet: Usual Diet as Tolerated Activity: As Tolerated Driving: Do Not Drive (until feeling better ) Showering/Bathing: May Shower Notify Provider of: Fever, Increased Pain, Nausea and/or Vomiting Other/Special Instructions: Follow-up with primary care provider within 5 to 7 days of discharge, sooner if needed. You were prescribed Eliquis which is a twice a day medication for your pulmonary embolism (blood clot in your lungs). You should take 10 mg twice a day with your first dose tonight (04/15/2021). On the morning of 04/21/2021 your dosing will decrease to 5 mg twice a day. You are prescribed an albuterol inhaler as needed for shortness of breath. You may take 2 puffs as needed every 2 hours as directed. You were prescribed 4 more days of steroid. You should take your first dose on 04/16/2021. Be sure to take 6 mg or 1.5 tablets daily. Continue to utilize your incentive spirometer (clear/blue device you inhale through) and Acapella (green tube you blow through) for 1-2 more weeks or until symptoms resolve. Continue to stay active. Walk around the house but listen to your body. If you start to get tired or short of breath stop and take a rest. You completed isolation/quarantine while here and we will not be required to do this further after leaving. You will l mikeely get a phone call from a jinriksha driver from the [facility] regarding your Covid status. Follow their directions. You may return to work on 04/21/2021 if you are feeling better. Continue to utilize your CPAP at night as prior. Should symptoms return or worsen contact primary care provider return to the emergency room. - Discharge Plan *PRESCRIPTION DRUG MONITORING PROGRAM REVIEWED*: Not Applicable *COPY OF PRESCRIPTION DRUG MONITORING REPORT IN PATIENT ARTURO: Not Applicable Prescriptions/Med Rec: Albuterol Sulfate [Albuterol Sulfate HFA] 2 puff INH Q2H PRN #1 inhaler PRN Reason: Shortness Of Breath dexAMETHasone [Dexamethasone] 6 mg PO DAILY 4 Days #6 tablet Apixaban [Eliquis] 10 mg PO BID #11 tablet Apixaban [Eliquis] 5 mg PO BID #20 tablet Home Medications: Home Meds Multivitamin [Multivitamins] 1 tab PO DAILY 04/11/21 [History] Albuterol Sulfate [Albuterol Sulfate HFA] 2 puff INH Q2H PRN #1 inhaler 04/15/21 [Rx] Apixaban [Eliquis] 5 mg PO BID #20 tablet 04/15/21 [Rx] Apixaban [Eliquis] 10 mg PO BID #11 tablet 04/15/21 [Rx] dexAMETHasone [Dexamethasone] 6 mg PO DAILY 4 Days #6 tablet 04/15/21 [Rx] Oxygen Therapy Mode: Room Air Patient Handouts: COVID-19 Frequently Asked Questions, COVID-19, 10 Things You Can Do to Manage Your COVID-19 Symptoms at Home - CDC (01/24/2021), Pulmonary Embolism, CPAP and BPAP Information Forms: ED Department Discharge Referrals: Radha Felix NP [Primary Care Provider] - 04/25/21 2:30 pm (Please arrive 15 minutes prior to the appointment to register.) - Discharge Summary/Plan Comment DC Time >30 min.: Yes Total # of Minutes for Discharge Time: 45 - General Info Date of Service: 04/15/21 Admission Dx/Problem (Free Text: Admission Diagnosis/Problem Admission Diagnosis/Problem Hypoxia Functional Status: Reports: Pain Controlled, Tolerating Diet, Ambulating, Urinating, Incentive Spirometry, Other (Acapella ). Denies: New Symptoms - Review of Systems General: Reports: Weakness (Improved ). Denies: Fever HEENT: Reports: No Symptoms. Denies: Headaches, Sore Throat Pulmonary: Reports: No Symptoms. Denies: Shortness of Breath, Cough, Sputum, Wheezing Cardiovascular: Reports: Dyspnea on Exertion (improved ). Denies: Chest Pain, Palpitations Gastrointestinal: Reports: No Symptoms. Denies: Abdominal Pain, Constipation, Decreased Appetite, Diarrhea, Nausea, Vomiting Genitourinary: Reports: No Symptoms. Denies: Pain Musculoskeletal: Reports: No Symptoms Skin: Reports: No Symptoms. Denies: Cyanosis Neurological: Reports: No Symptoms. Denies: Confusion, Dizziness, Headache, Numbness, Pre-Existing Deficit, Syncope, Tingling, Tremors, Trouble Speaking, Difficulty Walking, Weakness, Change in Speech, Gait Disturbance Psychiatric: Reports: No Symptoms - Patient Data Vitals - Most Recent: Last Vital Signs Temp 98.2 F 04/15/21 07:45 Pulse 65 04/15/21 04:09 Resp 18 04/15/21 07:45 BP 132/97 H 04/15/21 07:45 Pulse Ox 92 L 04/15/21 07:57 Weight - Most Recent: 319 lb 8 oz I&O - Last 24 hours: Intake & Output 04/14/21 04/15/21 04/15/21 22:59 06:59 14:59 Intake Total 2040 800 Output Total 800 Balance 1240 800 Lab Results - Last 24 hrs: Laboratory Results - last 24 hr 04/15/21 04/15/21 Range/Units 05:45 05:45 WBC 13.10 H (3.98-10.04) K/mm3 RBC 4.15 (3.98-5.22) M/mm3 Hgb 11.8 (11.2-15.7) gm/dl Hct 37.1 (34.1-44.9) % MCV 89.4 (79.4-94.8) fl MCH 28.4 (25.6-32.2) pg MCHC 31.8 L (32.2-35.5) g/dl RDW Std Deviation 43.2 (36.4-46.3) fL Plt Count 289 (182-369) K/mm3 MPV 9.6 (9.4-12.3) fl Neut % (Auto) 76.1 H (34.0-71.1) % Lymph % (Auto) 12.1 L (19.3-51.7) % [place] % (Auto) 10.5 (4.7-12.5) % Eos % (Auto) 0.1 L (0.7-5.8) Baso % (Auto) 0.1 (0.1-1.2) % Neut # (Auto) 9.99 H (1.56-6.13) K/mm3 Lymph # (Auto) 1.58 (1.18-3.74) K/mm3 [place] # (Auto) 1.37 H (0.24-0.36) K/mm3 Eos # (Auto) 0.01 L (0.04-0.36) K/mm3 Baso # (Auto) 0.01 (0.01-0.08) K/mm3 Sodium 139 (136-145) mEq/L Potassium 4.7 (3.5-5.1) mEq/L Chloride 106 (98-107) mEq/L Carbon Dioxide 25 (21-32) mEq/L Anion Gap 12.7 (5-15) BUN 34 H (7-18) mg/dL Creatinine 1.1 H (0.55-1.02) mg/dL Est Cr Clr Drug Dosing 61.04 mL/min Estimated GFR (MDRD) 52 (>60) mL/min BUN/Creatinine Ratio 30.9 H (14-18) Glucose 100 H (70-99) mg/dL Calcium 8.2 L (8.5-10.1) mg/dL Magnesium 2.2 (1.8-2.4) mg/dL Total Bilirubin 0.4 (0.2-1.0) mg/dL AST 41 H (15-37) U/L ALT 225 H (14-59) U/L Alkaline Phosphatase 66 (46-116) U/L C-Reactive Protein 1.1 H* (<1.0) mg/dL Total Protein 6.6 (6.4-8.2) g/dl Albumin 2.9 L (3.4-5.0) g/dl Globulin 3.7 gm/dL Albumin/Globulin Ratio 0.8 L (1-2) Med Orders - Current: Current Medications Acetaminophen (Acetaminophen 325 Mg Tab) 650 mg PO Q4H PRN PRN Reason: Pain (Mild 1-3)/fever Albuterol/Ipratropium (Albuterol/Ipratropium 3.0-0.5 Mg/3 Ml Neb Soln) 3 ml NEB Q4H PRN PRN Reason: Shortness Of Breath/wheezing Last Admin: 04/12/21 14:27 Dose: 3 ml Documented by: Apixaban (Apixaban 5 Mg Tab) 10 mg PO BID KAMRAN Stop: 04/20/21 21:01 Last Admin: 04/15/21 08:29 Dose: 10 mg Documented by: Dexamethasone (Dexamethasone 4 Mg Tab) 6 mg PO DAILY KAMRAN Stop: 04/20/21 09:01 Last Admin: 04/15/21 08:28 Dose: 6 mg Documented by: Ondansetron HCl (Ondansetron 4 Mg/2 Ml Sdv) 4 mg IVPUSH Q4H PRN PRN Reason: Nausea/Vomiting Last Admin: 04/11/21 23:27 Dose: 4 mg Documented by: Discontinued Medications Dexamethasone (Dexamethasone 10 Mg/Ml Sdv) 6 mg IVPUSH ONETIME STA Stop: 04/11/21 05:11 Last Admin: 04/11/21 05:26 Dose: 6 mg Documented by: Enoxaparin Sodium (Enoxaparin 150 Mg/1 Ml Syringe) 150 mg SUBCUT Q12H [facility] Last Admin: 04/13/21 19:59 Dose: 150 mg Documented by: Sodium Chloride (Normal Saline) 1,000 mls @ 999 mls/hr IV ONETIME ONE Stop: 04/11/21 06:03 Last Admin: 04/11/21 05:04 Dose: 999 mls/hr Documented by: Remdesivir 200 mg/ Sodium (Chloride) 250 mls @ 250 mls/hr IV ONETIME ONE Stop: 04/11/21 05:12 Last Admin: 04/11/21 05:27 Dose: 250 mls/hr Documented by: Sodium Chloride (Normal Saline) 1,000 mls @ 150 mls/hr IV ASDIRECTED KAMRAN Last Admin: 04/11/21 06:19 Dose: 150 mls/hr Documented by: Sodium Chloride (Normal Saline) 100 mls @ 60 mls/hr IV ASDIRECTED KAMRAN Last Admin: 04/11/21 08:07 Dose: 60 mls/hr Documented by: Heparin Sodium/Dextrose (Heparin 25,000 Units In D5w 500 Ml) 25,000 units in 500 mls @ 53.887 mls/hr IV TITRATE KAMRAN; Protocol Stop: 04/13/21 20:00 Last Titration: 04/13/21 19:59 Dose: 0 units/kg/hr, 0 mls/hr Documented by: Remdesivir 100 mg/ Sodium (Chloride) 100 mls @ 100 mls/hr IV Q24H KAMRAN Stop: 04/15/21 06:59 Last Admin: 04/12/21 07:47 Dose: 100 mls/hr Documented by: Heparin Sodium/Dextrose (Heparin 25,000 Units In D5w 500 Ml) 25,000 units in 500 mls @ 53.887 mls/hr IV TITRATE KAMRAN; Protocol Stop: 04/13/21 20:00 Lactated Ringer's (Ringers, Lactated) 500 mls @ 500 mls/hr IV .BOLUS ONE Stop: 04/12/21 08:33 Last Admin: 04/12/21 07:46 Dose: 500 mls/hr Documented by: Lactated Ringer's (Ringers, Lactated) Confirm Administered Dose 1,000 mls @ as directed .ROUTE .STK-MED ONE Stop: 04/12/21 08:44 Last Admin: 04/12/21 08:51 Dose: Not Given Documented by: Sodium Chloride (Normal Saline) 1,000 mls @ 50 mls/hr IV ASDIRECTED KAMRAN Lactated Ringer's (Ringers, Lactated) 1,000 mls @ 50 mls/hr IV ASDIRECTED KAMRAN Iopamidol (Iopamidol 755 Mg/Ml 100 Ml Bottle) 100 ml IVPUSH ONETIME ONE Stop: 04/11/21 07:44 Last Admin: 04/11/21 08:06 Dose: 100 ml Documented by: Ondansetron HCl (Ondansetron 4 Mg/2 Ml Sdv) 4 mg IVPUSH ONETIME ONE Stop: 04/11/21 06:28 Last Admin: 04/11/21 06:37 Dose: 4 mg Documented by: Sodium Chloride (Sodium Chloride 0.9% 10 Ml Syringe) 10 ml FLUSH ONETIME ONE Stop: 04/11/21 07:44 Last Admin: 04/11/21 08:07 Dose: 10 ml Documented by: - Exam Quality Assessment: Reports: DVT Prophylaxis. Denies: Supplemental Oxygen, Urine Catheter General: Reports: Alert, Oriented, Cooperative, No Acute Distress HEENT: Reports: Pupils Equal, Pupils Reactive, Mucous Membr. Moist/[place] Neck: Reports: Supple, Trachea Midline Lungs: Reports: Normal Respiratory Effort, Decreased Breath Sounds, Crackles (minimal ) Cardiovascular: Reports: Regular Rate, Regular Rhythm GI/Abdominal Exam: Normal Bowel Sounds, Soft, Non-Tender, No Distention (Female) Exam: Deferred Rectal (Female) Exam: Deferred Back Exam: Reports: Normal Inspection, Full Range of Motion Extremities: Normal Inspection, Normal Range of Motion, Non-Tender, Normal Capillary Refill, Pedal Edema (Trace) Skin: Reports: Warm, Dry, Intact Neurological: Reports: No New Focal Deficit Psy/Mental Status: Reports: Alert, Normal Affect, Normal Mood <Katy Ortega - Last Filed: 04/15/21 14:42> Discharge Summary - Hospital Course HPI Initial Comments: patient was seen and examined and agree with assessment and plan. No changes to medical management. - Referral to Home Health Primary Care Physician: Radha Felix NP - Patient Summary/Data Consults: Consultations 04/14/21 07:00 PT Evaluation and Treatment [CONS] Routine - Patient Data Vitals - Most Recent: Last Vital Signs Temp 98.2 F 04/15/21 07:45 Pulse 65 04/15/21 04:09 Resp 18 04/15/21 07:45 BP 132/97 H 04/15/21 07:45 Pulse Ox 92 L 04/15/21 07:57 I&O - Last 24 hours: Intake & Output 04/14/21 04/15/21 04/15/21 22:59 06:59 14:59 Intake Total 2040 800 Output Total 800 Balance 1240 800 Lab Results - Last 24 hrs: Laboratory Results - last 24 hr 04/15/21 04/15/21 Range/Units 05:45 05:45 WBC 13.10 H (3.98-10.04) K/mm3 RBC 4.15 (3.98-5.22) M/mm3 Hgb 11.8 (11.2-15.7) gm/dl Hct 37.1 (34.1-44.9) % MCV 89.4 (79.4-94.8) fl MCH 28.4 (25.6-32.2) pg MCHC 31.8 L (32.2-35.5) g/dl RDW Std Deviation 43.2 (36.4-46.3) fL Plt Count 289 (182-369) K/mm3 MPV 9.6 (9.4-12.3) fl Neut % (Auto) 76.1 H (34.0-71.1) % Lymph % (Auto) 12.1 L (19.3-51.7) % [place] % (Auto) 10.5 (4.7-12.5) % Eos % (Auto) 0.1 L (0.7-5.8) Baso % (Auto) 0.1 (0.1-1.2) % Neut # (Auto) 9.99 H (1.56-6.13) K/mm3 Lymph # (Auto) 1.58 (1.18-3.74) K/mm3 [place] # (Auto) 1.37 H (0.24-0.36) K/mm3 Eos # (Auto) 0.01 L (0.04-0.36) K/mm3 Baso # (Auto) 0.01 (0.01-0.08) K/mm3 Sodium 139 (136-145) mEq/L Potassium 4.7 (3.5-5.1) mEq/L Chloride 106 (98-107) mEq/L Carbon Dioxide 25 (21-32) mEq/L Anion Gap 12.7 (5-15) BUN 34 H (7-18) mg/dL Creatinine 1.1 H (0.55-1.02) mg/dL Est Cr Clr Drug Dosing 61.04 mL/min Estimated GFR (MDRD) 52 (>60) mL/min BUN/Creatinine Ratio 30.9 H (14-18) Glucose 100 H (70-99) mg/dL Calcium 8.2 L (8.5-10.1) mg/dL Magnesium 2.2 (1.8-2.4) mg/dL Total Bilirubin 0.4 (0.2-1.0) mg/dL AST 41 H (15-37) U/L ALT 225 H (14-59) U/L Alkaline Phosphatase 66 (46-116) U/L C-Reactive Protein 1.1 H* (<1.0) mg/dL Total Protein 6.6 (6.4-8.2) g/dl Albumin 2.9 L (3.4-5.0) g/dl Globulin 3.7 gm/dL Albumin/Globulin Ratio 0.8 L (1-2) Med Orders - Current: Current Medications Acetaminophen (Acetaminophen 325 Mg Tab) 650 mg PO Q4H PRN PRN Reason: Pain (Mild 1-3)/fever Albuterol/Ipratropium (Albuterol/Ipratropium 3.0-0.5 Mg/3 Ml Neb Soln) 3 ml NEB Q4H PRN PRN Reason: Shortness Of Breath/wheezing Last Admin: 04/12/21 14:27 Dose: 3 ml Documented by: Apixaban (Apixaban 5 Mg Tab) 10 mg PO BID [facility] Stop: 04/20/21 21:01 Last Admin: 04/15/21 08:29 Dose: 10 mg Documented by: Dexamethasone (Dexamethasone 4 Mg Tab) 6 mg PO DAILY KAMRAN Stop: 04/20/21 09:01 Last Admin: 04/15/21 08:28 Dose: 6 mg Documented by: Ondansetron HCl (Ondansetron 4 Mg/2 Ml Sdv) 4 mg IVPUSH Q4H PRN PRN Reason: Nausea/Vomiting Last Admin: 04/11/21 23:27 Dose: 4 mg Documented by: Discontinued Medications Dexamethasone (Dexamethasone 10 Mg/Ml Sdv) 6 mg IVPUSH ONETIME STA Stop: 04/11/21 05:11 Last Admin: 04/11/21 05:26 Dose: 6 mg Documented by: Enoxaparin Sodium (Enoxaparin 150 Mg/1 Ml Syringe) 150 mg SUBCUT Q12H KAMRAN Last Admin: 04/13/21 19:59 Dose: 150 mg Documented by: Sodium Chloride (Normal Saline) 1,000 mls @ 999 mls/hr IV ONETIME ONE Stop: 04/11/21 06:03 Last Admin: 04/11/21 05:04 Dose: 999 mls/hr Documented by: Remdesivir 200 mg/ Sodium (Chloride) 250 mls @ 250 mls/hr IV ONETIME ONE Stop: 04/11/21 05:12 Last Admin: 04/11/21 05:27 Dose: 250 mls/hr Documented by: Sodium Chloride (Normal Saline) 1,000 mls @ 150 mls/hr IV ASDIRECTED KAMRAN Last Admin: 04/11/21 06:19 Dose: 150 mls/hr Documented by: Sodium Chloride (Normal Saline) 100 mls @ 60 mls/hr IV ASDIRECTED KAMRAN Last Admin: 04/11/21 08:07 Dose: 60 mls/hr Documented by: Heparin Sodium/Dextrose (Heparin 25,000 Units In D5w 500 Ml) 25,000 units in 500 mls @ 53.887 mls/hr IV TITRATE KAMRAN; Protocol Stop: 04/13/21 20:00 Last Titration: 04/13/21 19:59 Dose: 0 units/kg/hr, 0 mls/hr Documented by: Remdesivir 100 mg/ Sodium (Chloride) 100 mls @ 100 mls/hr IV Q24H KAMRAN Stop: 04/15/21 06:59 Last Admin: 04/12/21 07:47 Dose: 100 mls/hr Documented by: Heparin Sodium/Dextrose (Heparin 25,000 Units In D5w 500 Ml) 25,000 units in 500 mls @ 53.887 mls/hr IV TITRATE KAMRAN; Protocol Stop: 04/13/21 20:00 Lactated Ringer's (Ringers, Lactated) 500 mls @ 500 mls/hr IV .BOLUS ONE Stop: 04/12/21 08:33 Last Admin: 04/12/21 07:46 Dose: 500 mls/hr Documented by: Lactated Ringer's (Ringers, Lactated) Confirm Administered Dose 1,000 mls @ as directed .ROUTE .STK-MED ONE Stop: 04/12/21 08:44 Last Admin: 04/12/21 08:51 Dose: Not Given Documented by: Sodium Chloride (Normal Saline) 1,000 mls @ 50 mls/hr IV ASDIRECTED KAMRAN Lactated Ringer's (Ringers, Lactated) 1,000 mls @ 50 mls/hr IV ASDIRECTED KAMRAN Iopamidol (Iopamidol 755 Mg/Ml 100 Ml Bottle) 100 ml IVPUSH ONETIME ONE Stop: 04/11/21 07:44 Last Admin: 04/11/21 08:06 Dose: 100 ml Documented by: Ondansetron HCl (Ondansetron 4 Mg/2 Ml Sdv) 4 mg IVPUSH ONETIME ONE Stop: 04/11/21 06:28 Last Admin: 04/11/21 06:37 Dose: 4 mg Documented by: Sodium Chloride (Sodium Chloride 0.9% 10 Ml Syringe) 10 ml FLUSH ONETIME ONE Stop: 04/11/21 07:44 Last Admin: 04/11/21 08:07 Dose: 10 ml Documented by:
== END 2021-04-15 15:07 | disposition home or self-care (01) | DRG 137 ==
LOC: JD.ED 04:33 → JD.ICU 19:12 → JD.MS 04-13 13:02 → JD.ICU 04-13 14:50 → JD.MS 04-13 14:50
PROVIDERS: ADMIT Family Medicine; ATTEND Family Medicine
PROC: 8E0ZXY6 Isolation (ICD-10-PCS; principal; 2021-04-11)
PROC: XW033E5 Introduction of Remdesivir Anti-infective into Peripheral Vein, Percutaneous Approach, New Technology Group 5 (ICD-10-PCS; 2021-04-11)
PROC: 3E0333Z Introduction of Anti-inflammatory into Peripheral Vein, Percutaneous Approach (ICD-10-PCS; 2021-04-11)
DX: U07.1 COVID-19 (principal); J12.82 Pneumonia due to coronavirus disease 2019; I26.09 Other pulmonary embolism with acute cor pulmonale; J96.01 Acute respiratory failure with hypoxia; E66.01 Morbid (severe) obesity due to excess calories; Z68.43 Body mass index [BMI] 50.0-59.9, adult; Z86.718 Personal history of other venous thrombosis and embolism; Z79.01 Long term (current) use of anticoagulants
CPT/HCPCS: 36415; 36600; 51702; 71045; 71045-26; 71275; 71275-26; 80053; 82803; 82947; 83036; 83605; 83735; 83880; 84145; 84484; 85007; 85025; 85027; 85049; 85379; 85610; 85730; 86140; 87040; 93005; 93306; 94640; 94660; 94762; 96374; 96375; 97162-GP; 99285-25; A9270-GY; J1100; J1644; J1650; J2405; J7030; J7050; J7120; J7620-GY; J8540; Q9967